=== PATIENT | female | born 1935 | race Caucasian/White ===

== ENCOUNTER 2021-05-07 11:00 | Outpatient (RCR) | payer MEDICARE, SELFPAY ==
[2021-04-30 10:20] VITALS: BP 130/72; PULSE 72; TEMP 35.9
--- NOTE | 2021-04-30 14:36 | HP.PCM_ITS ---
History of Present Illness Date of Service: 04/30/21 Chief Complaint: Right lateral calf ulcer, left forearm skin tear History of Wound: The patient is a pleasant 86-year-old female who presents to the wound healing center today (04/30/2021) for an initial evaluation of her right lateral calf ulcer, and a left forearm skin tear. She has a past medical history significant for right lower extremity lymphedema, hypothyroidism, hypertension, hyperlipidemia, aortic valve replacement, and ranulfo ral valve prolapse. She is a non-smoker. In the past week, she moved from [place] to [place] and is now residing with her daughter who is present with her today. Her right calf ulcer occurred around November 2020. During that time, she was hospitalized for a UTI and dehydration, and subsequently developed a right lower extremity hematoma. Her hematoma ruptured, resulting in a large ulceration. S he was taken to surgery for operative debridement of the right lateral calf. She then followed up at a wound care facility in [place]. She was treated for several months with Dakin's and daily Adaptic dressing changes. She was receiving home health care to assist with dressing changes. In recent weeks, her wound care regimen was changed to a weekly graft (type unknown). She uses a Tubigrip for compression of the right lower extremity. She has a lymphedema pump at home which she uses for 1 hour twice daily. She sleeps in a bed. She keeps her feet elevated when seated. She is unsure if she has ever had venous or arterial studies of the lower extremity completed. Recent lab work is unavailable. She is unsure if/when cultures were collected from the right lower extremity. Records from her wound care provider in [place] will be requested. She also has a small superficial skin tear to the left forearm. She states she was scratched by her daughter's cat yesterday. She was able to clean the area well with soap and water following the incident. She has covered the area with Band-Aids. The patient denies fever, chills, general malaise, or poor appetite. The patient has not had increased redness, swelling, or purulent/malodorous drainage from affected areas. [facility] Medical History (Updated 04/30/21 @ 14:54 by Doreen Lopez NP, PROCESS IMPROVEMENT ENGINEER-C) Edema of both lower extremities Essential hypertension Hyperlipidemia Hypothyroidism Lymphedema of right lower extremity MVP (mitral valve prolapse) Skin tear of left forearm without complication Venous stasis ulcer of right lower leg with edema of right lower leg Home Medications amiodarone 200 mg PO DAILY 04/30/21 [History Last Taken Unknown] aspirin 81 mg PO DAILY 04/30/21 [History Last Taken Unknown] atorvastatin 80 mg PO DAILY 04/30/21 [History Last Taken Unknown] bisoprolol fumarate 5 mg PO DAILY 04/30/21 [History Last Taken Unknown] bumetanide 1 mg PO DAILY 04/30/21 [History Last Taken Unknown] citalopram 10 mg PO DAILY 04/30/21 [History Last Taken Unknown] levothyroxine 50 mcg PO DAILY 04/30/21 [History Last Taken Unknown] lisinopril 20 mg PO DAILY 04/30/21 [History Last Taken Unknown] potassium chloride meq PO 04/30/21 [History Last Taken Unknown] Allergy/AdvReac Type Severity Reaction Status Date / Time erythromycin base Allergy Mild Diarrhea Verified 04/30/21 11:02 meloxicam Allergy Unknown Low Verified 04/30/21 10:59 platelets Surgical History (Updated 04/30/21 @ 14:54 by Doreen Lopez PROCESS IMPROVEMENT ENGINEER, PROCESS IMPROVEMENT ENGINEER-C) H/O aortic valve replacement ROS Constitutional Constitutional: Denies chills, fever(s) or night sweats Eyes Eyes: Denies change in vision or double vision ENT HEENT: Denies lip swelling or tongue swelling Cardiovascular Cardiovascular: Reports leg edema; Denies chest pain or palpitations Respiratory/Chest Respiratory/Chest: Reports shortness of breath with exertion; Denies cough, shortness of breath at rest or wheezing Gastrointestinal Gastrointestinal: Denies diarrhea, nausea or vomiting Genitourinary Genitourinary: Denies dysuria or hematuria Musculoskeletal Musculoskeletal: Denies abnormal gait, extremity pain or muscle weakness Integumentary Integumentary: Reports wounds; Denies rash Neurologic Neurologic: Denies abnormal gait, abnormal speech or focal weakness Endocrine Endocrinology: Denies cold intolerance, heat intolerance, polydipsia or polyuria Hematologic/Lymphatic Hematologic/Lymphatic: Denies easy bleeding or easy bruising Vital Signs Vital Signs Vital Signs: 04/30/21 10:20 Temperature 96.7 F L Temperature Source Temporal Pulse Rate 72 Blood Pressure 130/72 H Blood Pressure Mean 91 Blood Pressure Source Monitor Blood Pressure Position Semi-Fowlers Blood Pressure Location Left Arm Physical Exam Const alert, no apparent distress and healthy appearing General Appearance: cooperative, comfortable and well kempt HEENT moist oral mucous membranes Head and Scalp: normocephalic and atraumatic Eyes EOMs intact bilaterally Neck supple and no JVD Resp normal respiratory effort, normal air movement and no use of accessory muscles Auscultation: clear to auscultation bilaterally; Negative for crackles, rales, rhonchi or wheezes Cardio regular rate and regular rhythm GI normal to inspection, nondistended, normoactive bowel sounds Extremity normal capillary refill, no joint enlargement, no calf tenderness and no pedal edema General Extremity: edema right lower extremity severe (2+ pitting edema of the right lower extremity; 4+ pitting edema of right foot); Negative for clubbing or cyanosis Peripheral Pulses: Yes dorsalis pedis pulses present right 2+ Skin Wounds: wounds noted No malodorous Wound Narrative: Right lateral calf ulcer with subcutaneous layer exposed. Good granulation tissue is present. Moderate to large amounts of slough and devitalized tissue present. There is no tunneling, undermining, or probing to bone. No purulent/malodorous drainage present. No periulcer warmth, edema, or erythema. No significant periulcer tenderness. Left forearm skin tear with subcutaneous layer exposed. Good granulation tissue present. Scant amount of devitalized tissue present. There is no tunneling, undermining, or probing to bone. No purulent/malodorous drainage present. No rash. No periulcer warmth, edema, or erythema. No significant periulcer tenderness. Neuro moves all extremities and no focal motor deficits Sensorium / Orientation: awake and alert Psych mental status grossly normal, cooperative and affect normal Debridement Note Debridement Note Wound debrided: Right lateral calf ulcer Laterality: Right Type of Debridement: Excisional debridement Anesthesia Used: 4% Lidocaine Solution Depth: in the subcutaneous layer Percentage of wound debrided: 100 Instrument Used: 7mm curette Tissue Removed: Slough and devitalized tissue Severity: Fat Layer Exposed Amount of bleeding with debridement: Mild Bleeding Controlled with: Compression and gauze Patient tolerated procedure: Patient tolerated procedure well Post-Debridement Measurements and Additional Note: Post-Debridement Measurements/Treatment GLORIA - Nurse 1 - General Ulcer Assessment Start: 04/30/21 10:19 Freq: Status: Active Protocol: RAGHAV Activity Type Activity Date Activity User E-Sign Co-Sign Detail Recorded Client Recorded Date Recorded By Document 04/30/21 10:20 MT [id number] 04/30/21 10:34 MT 04/30/21 10:20 - Today's Visit Information Type of service Initial Visit Arrival Mode Ambulatory, Walker Patient Identification Verified (Name & Yes ) Vital Signs Temperature (97.8 F-99.1 F) 96.7 F L Temperature Source Temporal Pulse Rate (60-100) 72 Pulse Location Monitor Blood Pressure (90/60-120/80) 130/72 H Blood Pressure Mean 91 Source Monitor Position Semi-Fowlers Blood Pressure Location Left Arm History Since Last Visit- (Skip if this is Patient's initial visit) Have you changed medications since your No last visit? Any new allergies or adverse reactions No Had a fall/change in ADL's that may No increase risk of falls Signs or symptoms of abuse and/or No neglect since last visit Have you been in the hospital since your No last visit? Has dressing in place as prescribed No Has compression in place as prescribed Yes Has offloadiing in place as prescribed N/A Experienced any changes in pain level or No management Left Footwear Regular Shoe Right Footwear Regular Shoe Pain Scale: 0-10 Numeric Is Patient Pain Free? Yes - Nurse 1 - General Ulcer Measurement Start: 04/30/21 10:19 Freq: Status: Active Protocol: Activity Type Activity Date Activity User E-Sign Co-Sign Detail Recorded Client Recorded Date Recorded By Document 04/30/21 10:20 MT [id number] 04/30/21 10:34 MT 04/30/21 10:20 Wound Center Nurse 1 #1 Right Leg Lower Extremity -Current Size (cm) - Length 9 -Current Size (cm) - Width 2.2 -Current Size (cm) - Depth 1.1 -Total Square Cm 19.8 -Exudate Amt Medium -Exudate Type Serosanguineous -Wound Margin Distinct, Outline Attached -Granulation Amt Medium (34-66%) -Granulation Quality Red -Necrosis Amt Medium (34-66%) -Necrotic Tissue Type Adherent Slough -Texture (Marga-wound Skin Appearance) Assessed, Scarring -Moisture (Marga-wound Skin Appearance) Assessed, Maceration -Color (Marga-wound Skin Appearance) No Abnormality, Assessed -Temperature (Marga-wound Skin No Abnormality Appearance) (Pt Warm) -Tenderness on Palpation (Amrga-wound No Skin Appearance) -Ulcer Cleansing Rinsed/ Irrigated with Saline -Foul Odor after Cleansing No -Anesthetic Used 4% Lidocaine Solution,5% Lidocaine Gel Right Calf (cm) 35 Right Ankle (cm) 27 WC - Nurse 2 - General Ulcer CM Notes Start: 04/30/21 10:19 Freq: Status: Active Protocol: Activity Type Activity Date Activity User E-Sign Co-Sign Detail Recorded Client Recorded Date Recorded By Document 04/30/21 13:29 PL [id number] 04/30/21 13:31 PL 04/30/21 13:29 Wound Center Nurse 2 #2 Left forearm -Time 11:03 -Correct Patient Yes -Correct Side, Site, Position Yes -Correct Procedure Yes -Procedure Performed Yes -Type of Procedure Debridement -Clinical Debridement Subcutaneous -Tissue Removed Subcutaneous -Post Debridement (cm) - Length 1.0 -Post Debridement (cm) - Width 1.2 -Post Debridement (cm) - Depth 0.1 -Total Square (Post) (cm) 1.20 -Area of Debridement (cm) - Length 1.0 -Area of Debridement (cm) - Width 1.2 -Total Square (Area) (cm) 1.20 -Tunneling No -Undermining/Tunneling No -Circular Undermining No -Wound/Ulcer Outcome Not Healed -Ulcer Cleansing Rinsed/ Irrigated with Saline -Foul Odor after Cleansing No -Bioengineered Tissue No -Bleeding Controlled with Pressure -Treatment Response Procedure Tolerated Well -Debridement - Subq, 1st 20sq cm No #1 Right Leg Lower Extremity -Time 11:03 -Correct Patient Yes -Correct Side, Site, Position Yes -Correct Procedure Yes -Procedure Performed Yes -Type of Procedure Debridement -Clinical Debridement Subcutaneous -Tissue Removed Subcutaneous -Post Debridement (cm) - Length 9.1 -Post Debridement (cm) - Width 1.0 -Post Debridement (cm) - Depth 0.2 -Total Square (Post) (cm) 9.10 -Area of Debridement (cm) - Length 9.1 -Area of Debridement (cm) - Width 1.0 -Total Square (Area) (cm) 9.10 -Tunneling No -Undermining/Tunneling No -Circular Undermining No -Wound/Ulcer Outcome Not Healed -Ulcer Cleansing Rinsed/ Irrigated with Saline -Foul Odor after Cleansing No -Bioengineered Tissue No -Bleeding Controlled with Pressure -Treatment Response Procedure Tolerated Well -Debridement - Subq, 1st 20sq cm Yes WC - Nurse 3 - General Ulcer D/C NN Start: 04/30/21 10:19 Freq: Status: Active Protocol: Activity Type Activity Date Activity User E-Sign Co-Sign Detail Recorded Client Recorded Date Recorded By Document 04/30/21 11:53 MT [id number] 04/30/21 11:54 MT 04/30/21 11:53 Wound Care Nurse 3 #2 Left forearm -Ulcer Cleansing Rinsed/ Irrigated with Saline -Primary Dressing Applied NonAdherent Contact Layer -Primary Dressing Covered/Secured with Dry Gauze,Dry Gauze & Roll Gauze,Secured with Tape #1 Right Leg Lower Extremity -Ulcer Cleansing Rinsed/ Irrigated with Saline -Primary Dressing Applied Aquacel AG 4x4 -Primary Dressing Covered/Secured with Dry Gauze,Dry Gauze & Roll Gauze,Secured with Tape -Aquacel AG 4x4 1 Pain Scale: 0-10 Numeric Is Patient Pain Free? Yes WC - Visit Discharge Discharge Condition Stable Ambulatory Status Walker Transportation Private Auto Accompanied by daughter Additional Wound Wound debrided: Left forearm skin tear Laterality: Left Type of Debridement: Excisional debridement Anesthesia Used: Cetacaine Depth: in the subcutaneous layer Percentage of wound debrided: 100 Instrument Used: 3mm curette Tissue Removed: Devitalized tissue Severity: Fat Layer Exposed Amount of bleeding with debridement: Mild Bleeding Controlled with: Pressure Patient tolerated procedure: Patient tolerated procedure well Charges/Coding Visit Charges Office Visits / Consults: [id number] OV L4 New Procedures Integumentary [id number]: [id number] Raquel subq tissue 20 sq cm/< Assessment/Plan Assessment/Plan (1) Venous stasis ulcer of right lower leg with edema of right lower leg: CODE(S): I83.019 - Varicose veins of right lower extremity with ulcer of unspecified site; I83.891 - Varicose veins of right lower extremity with other complications; L97.919 - Non-pressure chronic ulcer of unspecified part of right lower leg with unspecified severity; R60.9 - Edema, unspecified (2) Skin tear of left forearm without complication: CODE(S): S51.812A - Laceration without foreign body of left forearm, initial encounter QUALIFIERS: Encounter type: initial encounter Qualified Code(s): S51.812A - Laceration without foreign body of left forearm, initial encounter (3) Lymphedema of right lower extremity: CODE(S): I89.0 - Lymphedema, not elsewhere classified (4) Edema of both lower extremities: CODE(S): R60.0 - Localized edema PLAN: Debridement performed today in clinic as annotated above. Aquacel Ag applied to the right lower extremity ulcer. Adaptic applied to the left forearm ulcer and wrapped in Kerlix, avoiding contact between tape and skin. Records will be obtained from the patient's previous wound care provider in [place]. We will determine what graft was previously used on the right lower extremity ulcer. The same graft may be resumed if insurance coverage is obtained. Otherwise, we may apply for alternative skin subs. At home wound-care instructions: The patient may shower. Instructed to use antibacterial soap and water to clean wounds when showering. For right lower extremity ulcer: Begin Aquacel Ag dressings. Change dressing once daily or more frequently as needed due to contamination. Wash RLE ulcer daily with Dakin's solution, rinse and dry thoroughly before each dressing change. For left forearm ulcer: Begin Adaptic dressing changes daily. Change dressing once daily or more frequently as needed due to contamination. Wash forearm ulcer daily with antibacterial soap and water. Cover with Kerlix and secure with tape, avoiding contact between skin and tape due to fragility of skin. Compression: Bilateral double Tubigrip's applied to the lower extremities. Patient was instructed to wear these daily. These may be removed at bedtime. Reapply in the morning before getting out of bed. Off-loading: The patient was instructed to avoid pressure and friction on the affected areas. Reposition every 2 hours at minimum. Avoid prolonged standing and/or dangling of legs. When seated, feet should be elevated at chest level. Frequent ambulation is encouraged. Diet: Patient encouraged to increase protein intake while taking caution to avoid high carbohydrate and/or sugar intake. Labs/cultures/imaging: Any previous culture results, blood work results, and vascular study results will be requested from the patient's previous wound care provider. If the studies have not been completed, they will be reconsidered at the patient's next appointment. Follow-up: Return to clinic in 1 week for re-evaluation. Return sooner or report to the emergency room should symptoms worsen, or new symptoms arise. Note: Dragon speech recognition technical support director software was used to create portions of this document. Sound-alike and misspelled words, as well as other technical support director errors may be contained in the documentation. Greater than 60 minutes were spent by me on today's visit. This time includes coordinating care, reviewing labs/records/history, interpretation of test results, and counseling patient/family. This also includes time spent with the patient for exam, treatment plan, and education as well as documenting clinical information in the electronic health record.
[2021-05-07 11:32] VITALS: TEMP 36.2
--- NOTE | 2021-05-07 12:44 | PCM.WC.PN ---
History of Present Illness Date of Service: 05/07/21 Chief Complaint: Right lateral calf ulcer, left forearm skin tear History of Wound: The patient is a pleasant 86-year-old female who presents to the wound healing center today (04/30/2021) for an initial evaluation of her right lateral calf ulcer, and a left forearm skin tear. She has a past medical history significant for right lower extremity lymphedema, hypothyroidism, hypertension, hyperlipidemia, aortic valve replacement, bilateral kidney stents (2017), and mitral valve prolapse. She is a non-smoker. In the past week, she moved from [place] to [place] and is now residing with her daughter who is present with her today. Her right calf ulcer occurred around November 2020. During that time, she was hospitalized for a UTI and dehydration, and subsequently developed a right lower extremity hematoma. Her hematoma ruptured, resulting in a large ulceration. She was taken to surgery for operative debridement of the right lateral calf. She then followed up at a wound care facility in [place]. She was treated for several months with Dakin's and daily Adaptic dressing changes. She was receiving home health care to assist with dressing changes. In recent weeks, her wound care regimen was changed to a weekly graft (Revita allograft). She uses a Tubigrip for compression of the right lower extremity. She has a lymphedema pump at home which she uses for 1 hour twice daily. She sleeps in a bed. She keeps her feet elevated when seated. She is ambulatory with a walker for support. She is unsure if she has ever had venous or arterial studies of the lower extremity completed. Recent lab work is unavailable. She is unsure if/when cultures were collected from the right lower extremity. Records from her wound care provider in [place] will be requested. She also has a small superficial skin tear to the left forearm. She states she was scratched by her daughter's cat yesterday. She was able to clean the area well with soap and water following the incident. She has covered the area with Band-Aids. The patient denies fever, chills, general malaise, or poor appetite. The patient has not had increased redness, swelling, or purulent/malodorous drainage from affected areas. Progress of Wound: The patient's lateral RLE ulcer is improved in size and appearance. Left forearm ulcer is also improved in size and appearance. She has been using Aquacel Ag to these ulcers and tolerating this well. She has been using Ramu wraps to knee level for compression. She states she has been keeping her feet elevated most of the time when seated. In the past week, she has acquired 2 new wounds. She slid off of the toilet and hit her left knee on the bathtub, causing a large skin tear. She also had opening of a previously suspected hematoma on her medial LLE. The patient denies fever, chills, general malaise, or poor appetite. The patient has not had increased redness, swelling, or malodorous drainage from affected area. A small amount of purulent drainage is noted from the right forearm ulcer. I called and spoke to a nurse at her previous PCP's office and was told that per her labs from February 2021 her creatinine was 1.11 and her eGFR was 45. She is faxing these results to our facility. Objective Data Objective Data Vital Signs: Vital Signs Temp Pulse BP 97.2 F L 72 130/72 H 05/07/21 11:32 04/30/21 10:20 04/30/21 10:20 Charges/Coding Procedures Integumentary 111xxx-113xx: [id number] Raquel subq tissue 20 sq cm/< 150xxx-152xx: [id number] Skin sub graft trnk/arm/leg Physical Exam Const alert, no apparent distress and healthy appearing General Appearance: cooperative, comfortable and well kempt HEENT Head and Scalp: normocephalic and atraumatic Eyes EOMs intact bilaterally Neck supple Resp normal respiratory effort, normal air movement and no use of accessory muscles Extremity normal capillary refill, no joint enlargement and no calf tenderness General Extremity: edema right lower extremity severe (2+ pitting edema of the right lower extremity; 4+ pitting edema of right foot and right knee above compression); Negative for clubbing or cyanosis Peripheral Pulses: Yes dorsalis pedis pulses present bilateral Skin Wounds: wounds noted No malodorous Wound Narrative: Right lateral calf ulcer with subcutaneous layer exposed. Good granulation tissue is present. Moderate to large amounts of slough and devitalized tissue present. There is no tunneling, undermining, or probing to bone. No purulent/malodorous drainage present. No periulcer warmth, edema, or erythema. No significant periulcer tenderness. Left forearm skin tear with subcutaneous layer exposed. Good granulation tissue present. Scant amount of devitalized tissue present. There is no tunneling, undermining, or probing to bone. Small amount of purulent drainage present. No rash. No periulcer warmth, edema, or erythema. No significant periulcer tenderness. Left knee skin tear with subcutaneous layer exposed. Good granulation tissue present. Moderate amount of slough and devitalized tissue present. There is no tunneling, undermining, or probing to bone. No purulent/malodorous drainage present. No periulcer warmth, edema, or erythema. Tenderness with palpation, debridement, and movement of the left knee. Left medial lower leg ulcer with subcutaneous layer exposed. Good granulation tissue present. Scant amount of devitalized tissue present. There is no tunneling, undermining, or probing to bone. Small amount of purulent drainage present. No rash. No periulcer warmth, edema, or erythema. No significant periulcer tenderness. Neuro moves all extremities and no focal motor deficits Sensorium / Orientation: awake and alert Psych mental status grossly normal, cooperative and affect normal Debridement Note Debridement Note Wound debrided: Lateral right lower extremity ulcer Laterality: Right Type of Debridement: Excisional debridement Anesthesia Used: 4% Lidocaine Solution Depth: in the subcutaneous layer Percentage of wound debrided: 100 Instrument Used: 3mm curette Tissue Removed: Slough and devitalized tissue Severity: Fat Layer Exposed Amount of bleeding with debridement: Mild Bleeding Controlled with: Pressure Patient tolerated procedure: Patient tolerated procedure well Post-Debridement Measurements and Additional Note: Post-Debridement Measurements/Treatment - Nurse 1 - General Ulcer Assessment Start: 04/30/21 10:19 Freq: Status: Active Protocol: RAGHAV Activity Type Activity Date Activity User E-Sign Co-Sign Detail Recorded Client Recorded Date Recorded By Document 04/30/21 10:20 KR [id number] 04/30/21 10:34 KR Document 05/07/21 11:32 AK [id number] 05/07/21 11:37 MARLEY 04/30/21 05/07/21 10:20 11:32 - Today's Visit Information Type of service Initial Visit Follow-up Visit (Physician/PERMASTONE MECHANIC ) Arrival Mode Ambulatory, Ambulatory Walker Patient Identification Verified (Name & Yes Yes ) Patient Requires Transmission-Based No Precautions Safety Precautions NA Vital Signs Temperature (97.8 F-99.1 F) 96.7 F L 97.2 F L Temperature Source Temporal Temporal Pulse Rate (60-100) 72 Pulse Location Monitor Blood Pressure (90/60-120/80) 130/72 H Blood Pressure Mean (mm Hg) 91 Source Monitor Position Semi-Fowlers Blood Pressure Location Left Arm History Since Last Visit- (Skip if this is Patient's initial visit) Have you changed medications since your No No last visit? Any new allergies or adverse reactions No No Had a fall/change in ADL's that may No No increase risk of falls Signs or symptoms of abuse and/or No No neglect since last visit Have you been in the hospital since your No No last visit? Has dressing in place as prescribed No Yes Has compression in place as prescribed Yes Yes Has offloadiing in place as prescribed N/A N/A Experienced any changes in pain level or No No management Left Footwear Regular Shoe Regular Shoe Right Footwear Regular Shoe Regular Shoe Pain Scale: 0-10 Numeric Is Patient Pain Free? Yes WC - Nurse 1 - General Ulcer Measurement Start: 04/30/21 10:19 Freq: Status: Active Protocol: Activity Type Activity Date Activity User E-Sign Co-Sign Detail Recorded Client Recorded Date Recorded By Document 04/30/21 10:20 KR [id number] 04/30/21 10:34 KR Document 05/07/21 11:32 AK [id number] 05/07/21 11:37 AK 04/30/21 05/07/21 10:20 11:32 Wound Center Nurse 1 #3 LEFT KNEE -Combined with other wound No -Current Size (cm) - Length 5 -Current Size (cm) - Width 2.5 -Current Size (cm) - Depth 0.1 -Total Square Cm 12.5 -Photo Taken No -Tunneling No -Undermining/Tunneling No -Circular Undermining No -Change in Wound Grade/Stage No -Exudate Amt Medium -Exudate Type Serosanguineous -Wound Margin Distinct, Outline Attached -Granulation Amt None Present (0 %) -Granulation Quality N/A -Slough/Fibrin No -Necrosis Amt None Present (0 %) -Structure Exposed N/A -Texture (Marga-wound Skin Appearance) No Abnormality, Assessed -Moisture (Marga-wound Skin Appearance) No Abnormality, Assessed -Color (Marga-wound Skin Appearance) No Abnormality, Assessed -Temperature (Marga-wound Skin No Abnormality Appearance) (Pt Warm) -Tenderness on Palpation (Marga-wound Yes Skin Appearance) -Ulcer Cleansing Rinsed/ Irrigated with Saline -Foul Odor after Cleansing No -Anesthetic Used 5% Lidocaine Gel #2 Left forearm -Current Size (cm) - Length 0.4 -Current Size (cm) - Width 0.5 -Current Size (cm) - Depth 0.1 -Total Square Cm 0.20 -Photo Taken No -Tunneling No -Undermining/Tunneling No -Circular Undermining No -Change in Wound Grade/Stage No -Exudate Amt None Present -Wound Margin Distinct, Outline Attached -Granulation Quality N/A -Slough/Fibrin No -Necrosis Amt None Present (0 %) -Structure Exposed N/A -Texture (Marga-wound Skin Appearance) No Abnormality, Assessed -Moisture (Marga-wound Skin Appearance) No Abnormality, Assessed -Color (Marga-wound Skin Appearance) No Abnormality, Assessed -Temperature (Marga-wound Skin No Abnormality Appearance) (Pt Warm) -Tenderness on Palpation (Marga-wound No Skin Appearance) -Ulcer Cleansing Rinsed/ Irrigated with Saline -Foul Odor after Cleansing No -Anesthetic Used 5% Lidocaine Gel #1 Right Leg Lower Extremity -Combined with other wound No -Current Size (cm) - Length 9 5 -Current Size (cm) - Width 2.2 0.5 -Current Size (cm) - Depth 1.1 0.1 -Total Square Cm 19.8 2.5 -Photo Taken No -Tunneling No -Undermining/Tunneling No -Circular Undermining No -Change in Wound Grade/Stage No -Exudate Amt Medium None Present -Exudate Type Serosanguineous -Wound Margin Distinct, Outline Attached -Granulation Amt Medium (34-66%) None Present (0 %) -Granulation Quality Red -Slough/Fibrin No -Necrosis Amt Medium (34-66%) None Present (0 %) -Necrotic Tissue Type Adherent Slough -Structure Exposed N/A -Texture (Marga-wound Skin Appearance) Assessed, No Abnormality, Scarring Assessed -Moisture (Marga-wound Skin Appearance) Assessed, No Abnormality, Maceration Assessed -Color (Marga-wound Skin Appearance) No Abnormality, No Abnormality, Assessed Assessed -Temperature (Marga-wound Skin No Abnormality No Abnormality Appearance) (Pt Warm) (Pt Warm) -Tenderness on Palpation (Marga-wound No Yes Skin Appearance) -Ulcer Cleansing Rinsed/ Rinsed/ Irrigated with Irrigated with Saline Saline -Foul Odor after Cleansing No -Anesthetic Used 4% Lidocaine 5% Lidocaine Solution,5% Gel Lidocaine Gel Right Calf (cm) 35 38 Right Ankle (cm) 27 25 WC - Nurse 2 - General Ulcer CM Notes Start: 04/30/21 10:19 Freq: Status: Active Protocol: Activity Type Activity Date Activity User E-Sign Co-Sign Detail Recorded Client Recorded Date Recorded By Document 04/30/21 13:29 PL [id number] 04/30/21 13:31 PL 04/30/21 13:29 Wound Center Nurse 2 #2 Left forearm -Time 11:03 -Correct Patient Yes -Correct Side, Site, Position Yes -Correct Procedure Yes -Procedure Performed Yes -Type of Procedure Debridement -Clinical Debridement Subcutaneous -Tissue Removed Subcutaneous -Post Debridement (cm) - Length 1.0 -Post Debridement (cm) - Width 1.2 -Post Debridement (cm) - Depth 0.1 -Total Square (Post) (cm) 1.20 -Area of Debridement (cm) - Length 1.0 -Area of Debridement (cm) - Width 1.2 -Total Square (Area) (cm) 1.20 -Tunneling No -Undermining/Tunneling No -Circular Undermining No -Wound/Ulcer Outcome Not Healed -Ulcer Cleansing Rinsed/ Irrigated with Saline -Foul Odor after Cleansing No -Bioengineered Tissue No -Bleeding Controlled with Pressure -Treatment Response Procedure Tolerated Well -Debridement - Subq, 1st 20sq cm No #1 Right Leg Lower Extremity -Time 11:03 -Correct Patient Yes -Correct Side, Site, Position Yes -Correct Procedure Yes -Procedure Performed Yes -Type of Procedure Debridement -Clinical Debridement Subcutaneous -Tissue Removed Subcutaneous -Post Debridement (cm) - Length 9.1 -Post Debridement (cm) - Width 1.0 -Post Debridement (cm) - Depth 0.2 -Total Square (Post) (cm) 9.10 -Area of Debridement (cm) - Length 9.1 -Area of Debridement (cm) - Width 1.0 -Total Square (Area) (cm) 9.10 -Tunneling No -Undermining/Tunneling No -Circular Undermining No -Wound/Ulcer Outcome Not Healed -Ulcer Cleansing Rinsed/ Irrigated with Saline -Foul Odor after Cleansing No -Bioengineered Tissue No -Bleeding Controlled with Pressure -Treatment Response Procedure Tolerated Well -Debridement - Subq, 1st 20sq cm Yes - Nurse 3 - General Ulcer D/C NN Start: 04/30/21 10:19 Freq: Status: Active Protocol: Activity Type Activity Date Activity User E-Sign Co-Sign Detail Recorded Client Recorded Date Recorded By Document 04/30/21 11:53 MT [id number] 04/30/21 11:54 MT 04/30/21 11:53 Wound Care Nurse 3 #2 Left forearm -Ulcer Cleansing Rinsed/ Irrigated with Saline -Primary Dressing Applied NonAdherent Contact Layer -Primary Dressing Covered/Secured with Dry Gauze,Dry Gauze & Roll Gauze,Secured with Tape #1 Right Leg Lower Extremity -Ulcer Cleansing Rinsed/ Irrigated with Saline -Primary Dressing Applied Aquacel AG 4x4 -Primary Dressing Covered/Secured with Dry Gauze,Dry Gauze & Roll Gauze,Secured with Tape -Aquacel AG 4x4 1 Pain Scale: 0-10 Numeric Is Patient Pain Free? Yes WC - Visit Discharge Discharge Condition Stable Ambulatory Status Walker Transportation Private Auto Accompanied by daughter Additional Wound Wound debrided: Left forearm ulcer Laterality: Left Type of Debridement: Excisional debridement Anesthesia Used: 5% Lidocaine Gel Depth: in the subcutaneous layer Percentage of wound debrided: 100 Instrument Used: 3mm curette Tissue Removed: Slough and devitalized tissue Severity: Fat Layer Exposed Amount of bleeding with debridement: Mild Bleeding Controlled with: Pressure Patient tolerated procedure: Patient tolerated procedure well Additional Wound Wound debrided: Left knee ulcer Laterality: Left Type of Debridement: Excisional debridement Depth: in the subcutaneous layer Percentage of wound debrided: 100 Instrument Used: 5mm curette, #15 blade and Forceps Tissue Removed: Slough and devitalized tissue Severity: Fat Layer Exposed Amount of bleeding with debridement: Mild Bleeding Controlled with: Pressure Patient tolerated procedure: Patient did not tolerate procedure well Additional Wound Wound debrided: Medial left lower extremity ulcer Laterality: Left Type of Debridement: Excisional debridement Anesthesia Used: Cetacaine Depth: in the subcutaneous layer Percentage of wound debrided: 100 Instrument Used: 3mm curette Tissue Removed: Slough and devitalized tissue Severity: Fat Layer Exposed Amount of bleeding with debridement: Mild Bleeding Controlled with: Pressure Patient tolerated procedure: Patient tolerated procedure well Assessment/Plan Assessment/Plan (1) Venous stasis ulcer of right lower leg with edema of right lower leg: CODE(S): I83.019 - Varicose veins of right lower extremity with ulcer of unspecified site; I83.891 - Varicose veins of right lower extremity with other complications; L97.919 - Non-pressure chronic ulcer of unspecified part of right lower leg with unspecified severity; R60.9 - Edema, unspecified (2) Skin tear of left forearm without complication: CODE(S): S51.812A - Laceration without foreign body of left forearm, initial encounter QUALIFIERS: Encounter type: initial encounter Qualified Code(s): S51.812A - Laceration without foreign body of left forearm, initial encounter (3) Lymphedema of right lower extremity: CODE(S): I89.0 - Lymphedema, not elsewhere classified (4) Edema of both lower extremities: CODE(S): R60.0 - Localized edema (5) Noninfected skin tear of left lower extremity: CODE(S): S81.812A - Laceration without foreign body, left lower leg, initial encounter QUALIFIERS: Encounter type: initial encounter Qualified Code(s): S81.812A - Laceration without foreign body, left lower leg, initial encounter (6) 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 Given the duration of the wound and failure of the wound to respond to standard wound care, we will applied for advanced skin substitutes (Puraply, Nushield, Apligraf, and EpiFix). The patient has been approved for PuraPly and Nushield. Epifix approval is still pending. Records obtained from the patient's previous wound care provider in [place]. She was previously using revita allograft (a placental graft). Puraply #1 was applied to the right lower extremity ulcer; 100% of the product was used. Moistened with hydrogel, covered with Adaptic touch, and secured with Steri-Strips. Kerlix applied for outer dressing. Thigh-high Tubigrip applied to the right lower extremity. Instructions were given to change Kerlix daily or as needed due to contamination. Puraply, Adaptic touch, and Steri-Strips are to be kept clean and dry, and left intact until patient's next visit at the wound healing center. Slightly moistened Karen was applied to the remainder of the patient's wounds (left forearm ulcer, left knee ulcer, and medial left lower extremity ulcer). The left lower extremity and left forearm were wrapped with Kerlix. Thigh-high Tubigrip applied to the left lower extremity. Perform Karen dressing changes daily or more frequently as needed due to contamination. Wash these ulcers daily with antibacterial soap and water. Cover with Kerlix and secure with tape, avoiding contact between skin and tape due to fragility of skin. At home wound-care instructions: Perform sponge bathing for the next week in efforts to keep right lower extremity dressing clean and dry. Patient is high risk for falls and I do not recommend that she attempt to use a cast cover while showering. Compression: Bilateral double Tubigrip's applied to the lower extremities. Patient was instructed to wear these daily. These may be removed at bedtime. Reapply in the morning before getting out of bed. Off-loading: The patient was instructed to avoid pressure and friction on the affected areas. Reposition every 2 hours at minimum. Avoid prolonged standing and/or dangling of legs. When seated, feet should be elevated at chest level. Frequent ambulation is encouraged. Diet: Patient encouraged to increase protein intake while taking caution to avoid high carbohydrate and/or sugar intake. Labs/cultures/imaging: Culture collected from the patient's left forearm ulcer today due to the presence of purulent drainage. Patient will be empirically started on Augmentin 875/125 mg twice daily x7 days. Antibiotics will be adjusted as needed based on culture results. Patient's primary care office from [place] is faxing over lab results from February 2021. A CBC, CMP, ESR, CRP, and prealbumin were ordered. Per their report, no vascular studies have been completed. These will remain a future consideration in managing the patient's conditions. Follow-up: Return to clinic in 1 week for re-evaluation. Return sooner or report to the emergency room should symptoms worsen, or new symptoms arise. Note: [employer] speech recognition delivery supervisor software was used to create portions of this document. Sound-alike and misspelled words, as well as other delivery supervisor errors may be contained in the documentation. Greater than 60 minutes were spent by me on today's visit. This time includes coordinating care, reviewing labs/records/history, interpretation of test results, and counseling patient/family. This also includes time spent with the patient for exam, treatment plan, and education as well as documenting clinical information in the electronic health record.
== END 2021-05-20 23:59 ==
LOC: WC 11:00
PROVIDERS: PCP Internal Medicine; Visit Provider Nurse Practitioner Family
DX: I83.012 Varicose veins of right lower extremity with ulcer of calf (principal); I83.891 Varicose veins of right lower extremity with other complications; L97.212 Non-pressure chronic ulcer of right calf with fat layer exposed; S51.812A Laceration without foreign body of left forearm, initial encounter; S81.012A Laceration without foreign body, left knee, initial encounter; X58.XXXA Exposure to other specified factors, initial encounter; Y93.9 Activity, unspecified; Y92.9 Unspecified place or not applicable; Y99.9 Unspecified external cause status; I89.0 Lymphedema, not elsewhere classified; R60.0 Localized edema; I10 Essential (primary) hypertension; E78.5 Hyperlipidemia, unspecified; E03.9 Hypothyroidism, unspecified; Z79.82 Long term (current) use of aspirin; Z79.890 Hormone replacement therapy; Z79.899 Other long term (current) drug therapy; Z95.2 Presence of prosthetic heart valve
CPT/HCPCS: 11042; 15271; 87070; 87075; 87205; 99213; Q4196; G0463

== ENCOUNTER → 2021-05-08 11:34 | Outpatient (CLI) | payer MEDICARE, SELFPAY ==
[2021-05-08 12:07] LABS: Absolute Lymphocyte Count 0.92 X10^3/uL (0.83-4.51); Basophil# 0.06 X10^3/uL; Basophil% 0.7 % (0-1); Eosinophil# 0.15 X10^3/uL; Eosinophils% 1.7 % (0-5); Hematocrit 35.8 % (37-47); Hemoglobin 11.1 g/dL (12.0-15.0); Lymphocyte # 0.92 X10^3/ul (0.83-4.51); Lymphocyte % 10.2 % (19-41); Mean Corpuscular Hgb 27.4 pg (27.0-32.0); Mean Corpuscular Volume 88.4 fL (81-99); Monocyte# 0.86 X10^3/uL; Monocyte% 9.5 % (0-10); NRBC Flagged by Analyzer 0 % (0-5); Neutrophil # 6.95 X10^3/uL (2.7-7.7); Neutrophil % 76.7 % (47-70); Platelet Count 268 K/mm3 (150-450); RBC Distribution Width CV 18.6 % (11.6-14.6); RBC Distribution Width SD 59.9 fl (35.1-43.9); Red Blood Count 4.05 M/mm3 (4.2-5.4); White Blood Count 9.1 K/mm3 (4.4-11.0)
[2021-05-08 12:42] LABS: Erythrocyte Sedimentation Rate 10 mm/hr (0-30)
[2021-05-08 13:02] LABS: ALB/GLOB Ratio 0.9 RATIO (0.9-2.4); AST(SGOT) 26 U/L (15-37); Alanine Aminotransfer ALT/SGPT 34 U/L (13-56); Albumin, Serum 3.1 g/dL (3.2-5.0); Alkaline Phosphatase 76 U/L (45-117); Anion Gap 4 (5-15); BUN 27 mg/dL (7-18); BUN/Creat Ratio 25.5 RATIO (10-20); CRP 5.94 mg/L (0.0-3.0); Calcium,Total 8.8 mg/dL (8.5-10.1); Chloride 108 mmol/L (98-107); Creatinine, Serum 1.06 mg/dL (0.55-1.02); EST Glomerular Filtration Rate 52 mL/min (>60); Est Glom Filt Rate - Afr Amer 63 mL/min (>60); Globulin 3.3 g/dL (2.2-4.2); Glucose 78 mg/dL (74-106); Potassium 4.5 mmol/L (3.5-5.1); Prealbumin 14.7 mg/dL (20.0-40.0); Protein, Total 6.4 g/dL (6.4-8.2); Sodium Level 141 mmol/L (136-145)
== END ==
PROVIDERS: PCP Internal Medicine; Referring Provider Nurse Practitioner Family; Visit Provider Nurse Practitioner Family
DX: E03.9 Hypothyroidism, unspecified (principal); T14.8XXA Other injury of unspecified body region, initial encounter
CPT/HCPCS: 36415; 80053; 84134; 84443; 85025; 85652; 86140

== ENCOUNTER 2021-05-11 15:17 | Inpatient (IN) | payer MEDICARE, SELFPAY ==
[2021-05-11] VITALS (8 sets, daily range): BP systolic 141–204; BP diastolic 64–81; PULSE 63–82; RESP 16–20; TEMP 36.5–36.8; O2SAT 93–100; BMI 23.3; BMI 19.9
--- NOTE | 2021-05-11 15:55 | CT_ITS ---
EXAM: CT HEAD WITHOUT INTRAVENOUS CONTRAST : 1935 CLINICAL INDICATION: head injury TECHNIQUE: Multiple axial images were obtained of the head without intravenous contrast. This CT exam was performed using one or more of the following dose reduction techniques: automated exposure control, adjustment of the mA and/or kV according to patient size, and/or use of iterative reconstruction technique. This report was created using [employer] report generation technology. COMPARISON: None. FINDINGS: BRAIN AND EXTRA-AXIAL SPACES: There is enlargement of the ventricular system and cortical sulci. There is hypoattenuation in the periventricular white matter. No intra- or extra-axial hemorrhage. No evidence of acute infarct. No intracranial mass or mass effect. There is preservation of the lindsey/white matter interface. Posterior fossa structures are unremarkable. Basal cisterns are patent. BONES/JOINTS: Unremarkable. No discrete lytic or blastic abnormalities. SINUSES: Unremarkable as visualized. Clear. MASTOID AIR CELLS: Unremarkable. Clear. ORBITS: Visualized globes, extraocular muscles, optic nerves and retrobulbar fat appear unremarkable. CT/Brain/Head without Contrast IMPRESSION: 1. No acute intracranial abnormality. 2. Underlying senescent change with small vessel ischemia. Individualized dose optimization techniques were used for this CT. at 1839 Reported and signed by: Joshua Reynoso MD Electronically Signed: Joshua Reynoso MD at 18:38 EDT Tel , Service support ,
--- NOTE | 2021-05-11 15:55 | EKG12_ITS ---
Test Reason : ILLNESS Blood Pressure : / mmHG Vent. Rate : 061 BPM Atrial Rate : 061 BPM P-R Int : 198 ms QRS Dur : 112 ms QT Int : 452 ms P-R-T Axes : 066 028 110 degrees QTc Int : 455 ms Sinus rhythm with occasional Premature ventricular complexes Left ventricular hypertrophy with repolarization abnormality Abnormal ECG Confirmed by ANTONI ARMSTRONG, HENRY ([id number]), editor at large CHELLE LAWLER ([id number]) on 05/19/2021 1:06:47 PM Referred By: DENYS Confirmed By:HENRY CORRALES MD
--- NOTE | 2021-05-11 15:58 | ED.VIS.FALL ---
HPI HPI - Fall History of Present Illness Chief Complaint: Fall Narrative Narrative: 86-year-old female with history of generalized weakness she normally ambulates with a walker presenting with increasing weakness. Apparently she has been more confused than usual and not her baseline. Patient was left at home this morning at around 7 AM and her daughter called her at 10 she was answering the phone although she was moaning in pain. Her daughter came over to get her up and she was able to get up off of the floor where she had fallen and ambulate with her walker although she seemed to have some back pain. She was given two tramadol. Patient was then left again and upon arrival back home after a couple of hours she was found again on the floor moaning. Her daughter was unable to get her off of the floor due to pain in her lower back. Patient does have history of urinary tract infections in the past. She also has history of multiple falls. Patient does not have any hip pain. She is unable to answer whether she hit her head or not. Patient's daughter does note that she has not been eating and drinking well for the past couple of days. They have been trying to encourage her to do so without success. 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 Home Medications amiodarone 200 mg PO DAILY 04/30/21 [History Last Taken 05/11/21] atorvastatin 80 mg PO DAILY 04/30/21 [History Last Taken 05/10/21] bisoprolol fumarate 2.5 mg PO DAILY 04/30/21 [History Last Taken 05/10/21] bumetanide 1 mg PO DAILY 04/30/21 [History Last Taken 05/11/21] citalopram 10 mg PO DAILY 04/30/21 [History Last Taken 05/11/21] levothyroxine 50 mcg PO DAILY 04/30/21 [History Last Taken 05/11/21] lisinopril 20 mg PO DAILY 04/30/21 [History Last Taken 05/11/21] amoxicillin-pot clavulanate [Augmentin] 1 tab PO Q12H 7 Days #14 tab 05/07/21 [Rx Last Taken Unknown] aspirin [Aspirin Low-Strength] 81 mg PO DAILY 05/11/21 [History Last Taken 05/11/21] lisinopril 10 mg PO QHS 05/11/21 [History Last Taken 05/10/21] potassium chloride 20 meq PO DAILY 05/11/21 [History Last Taken 05/11/21] tramadol 200 mg PO TID PRN 05/11/21 [History Last Taken 05/11/21 11:00] Allergy/AdvReac Type Severity Reaction Status Date / Time erythromycin base Allergy Mild Diarrhea Verified 05/11/21 15:20 meloxicam Allergy Unknown Low Verified 05/11/21 15:20 platelets Surgical History H/O aortic valve replacement History of kyphoplasty History of renal stent S/P TAVR (transcatheter aortic valve replacement) Social History Smoking Status: Never smoker ROS ROS ED Constitutional Constitutional ED: Denies chills or fever(s) Eyes Eyes: Denies blurry vision or diplopia ENT ENT ED: Denies rhinorrhea or sore throat Cardiovascular Cardiovascular: Denies chest pain or palpitations Respiratory/Chest Respiratory/Chest: Denies cough or dyspnea Gastrointestinal Gastrointestinal: Denies constipation, diarrhea, nausea or vomiting Genitourinary Genitourinary ED: Denies dysuria or hematuria Musculoskeletal Musculoskeletal: Reports back pain and other Details: Left flank pain. ; Denies neck pain Neurologic Neurologic: Reports headache(s); Denies paresthesias EXAM Physical Exam Const Vital Signs: 05/11/21 15:20 05/11/21 15:42 05/11/21 15:46 Temperature 97.7 F L 97.7 F L Temperature Source Oral Oral Pulse Rate 64 64 Respiratory Rate 16 16 Respiratory Effort Respiratory Depth Respiratory Pattern Blood Pressure 204/81 H 204/81 H Blood Pressure Mean 122 122 Pulse Ox 95 95 Oxygen Delivery Method Room Air Room Air 05/11/21 15:48 05/11/21 18:44 05/11/21 20:08 Temperature 97.8 F 97.7 F L Temperature Source Oral Temporal Pulse Rate 82 63 Respiratory Rate 16 20 H Respiratory Effort Normal Non-Labored Respiratory Depth Normal Respiratory Pattern Normal Blood Pressure 184/64 H 175/65 H Blood Pressure Mean 104 101 Pulse Ox 93 93 Oxygen Delivery Method Room Air Room Air Positive well nourished General Appearance ED: NAD HEENT Reports normocephalic atraumatic Eyes PERRL and EOMs intact bilaterally Resp normal respiratory effort and clear to auscultation bilaterally Cardio regular rate and regular rhythm Back/Spine Back/Spine Narrative: No reproducible thoracic or lumbar spinal tenderness or deformity. Pain elicited in left flank while sitting forward for examination. No joy CVA tenderness. No bruising or ecchymosis. Extremity normal to inspection and full ROM Extremity Narrative: Negative logroll left hip. Neuro oriented x3 and CN's II-XII intact bilaterally Sensorium / Orientation: alert Psych Psych Narrative: Slightly confused and slow to answer questioning. Skin Skin Narrative: Patient has a wound on the left leg which appears to be erythematous and weeping. The left leg is warm and this is slightly reddened. The wound on her left forearm is punctate and does not appear to be infected. The dressing is clean dry and intact. MDM MDM MDM Narrative Medical decision making narrative: Patient presenting with falls x2 today concern for generalized weakness. Since the falls are unwitnessed and the patient is weak and complaining of back pain I did obtain a full work-up. EKG on my interpretation shows a sinus rhythm with occasional PVCs at a rate of 61 bpm. Chest x-ray on my interpretation shows possible infiltrate in the left lower lobe the radiologist does agree. CT brain is negative for acute intracranial process. CT of the abdomen pelvis was negative for acute findings and this was performed due to the patient's left flank pain. She does not have bony tenderness of the lumbar or thoracic spine. The CT does identify what appears to be pleural effusions versus developing pneumonia. Since the patient has a leukocytosis of 15.1 patient will be treated with Rocephin and azithromycin. Hemoglobin hematocrit are stable. Urinalysis is negative for infection. Creatinine 1.06 and electrolytes are normal. CK is 60. Patient does have a wound on the left leg which is concerning for possible cellulitis. Patient's daughter states that she is on amoxicillin currently for a cat scratch that she obtained on the left forearm. This does not appear to be grossly infected. Azithromycin will cover for this. Patient's erythromycin allergy is diarrhea so I believe it safe to give this. Covid testing is negative. Patient discussed with hospitalist for admission. Impression: #1. Community acquired pneumonia #2. Left lower extremity cellulitis #3. Generalized weakness and falls #4. Back pain Lab Data Attestation: I reviewed the patient's lab results. Labs: Laboratory Results - last 24 hr 05/11/21 05/11/21 05/11/21 16:15 16:48 16:48 WBC 15.1 H RBC 4.46 Hgb 12.0 Hct 39.0 MCV 87.4 MCH 26.9 L MCHC 30.8 L RDW Std Deviation 57.7 H RDW Coeff of Vick 18.3 H Plt Count 231 MPV 9.5 Immature Gran % (Auto) 0.900 Neut % (Auto) 85.9 H Lymph % (Auto) 3.8 L Cowley % (Auto) 8.9 Eos % (Auto) 0.2 Baso % (Auto) 0.3 Absolute Neuts (auto) 13.0 H Absolute Lymphs (auto) 0.58 L Nucleated RBC % 0 Differential Comment SCANNED Sodium Potassium Chloride Carbon Dioxide Anion Gap BUN Creatinine Estim Creat Clear Calc Est GFR (MDRD) Af Amer Est GFR (MDRD) Non-Af BUN/Creatinine Ratio Glucose Calcium Total Creatine Kinase Troponin I High Sens 23 Urine Color Straw Urine Clarity Clear Urine pH 5.0 Ur Specific [place] 1.010 Urine Protein Negative Urine Glucose (UA) Normal Urine Ketones Negative Urine Occult Blood 25 H Urine Nitrite Negative Urine Bilirubin Negative Urine Urobilinogen Normal Ur Leukocyte Esterase Negative Urine RBC 0-5 SEEN Urine WBC 0 SEEN Ur Squamous Epith Cells 0 SEEN Urine Bacteria RARE Urine Mucus 0 SEEN 05/11/21 05/11/21 16:48 16:48 WBC RBC Hgb Hct MCV MCH MCHC RDW Std Deviation RDW Coeff of Vick Plt Count MPV Immature Gran % (Auto) Neut % (Auto) Lymph % (Auto) Cowley % (Auto) Eos % (Auto) Baso % (Auto) Absolute Neuts (auto) Absolute Lymphs (auto) Nucleated RBC % Differential Comment Sodium 136 Potassium 4.4 Chloride 101 Carbon Dioxide 28.0 Anion Gap 7 BUN 24 H Creatinine 1.06 H Estim Creat Clear Calc 27.36 Est GFR (MDRD) Af Amer 63 Est GFR (MDRD) Non-Af 52 L BUN/Creatinine Ratio 22.6 H Glucose 102 Calcium 9.2 Total Creatine Kinase 60 Troponin I High Sens Urine Color Urine Clarity Urine pH Ur Specific [place] Urine Protein Urine Glucose (UA) Urine Ketones Urine Occult Blood Urine Nitrite Urine Bilirubin Urine Urobilinogen Ur Leukocyte Esterase Urine RBC Urine WBC Ur Squamous Epith Cells Urine Bacteria Urine Mucus Radiography Diagnostic Testing: Radiology Impression Brain CT 05/11/21 15:55 IMPRESSION: 1. No acute intracranial abnormality. 2. Underlying senescent change with small vessel ischemia. Individualized dose optimization techniques were used for this CT. at 1839 Reported and signed by: Joshua Reynoso MD Electronically Signed: Joshua Reynoso MD at 18:38 EDT Tel , Service support , Chest X-Ray 05/11/21 16:20 IMPRESSION: Streaky opacities in the left lung base could represent infection in the correct clinical setting. Electronically Signed: Ralph Silveira MD at 16:39 EDT Tel , Service support , Abdomen/Pelvis CT 05/11/21 17:50 IMPRESSION: 1. Bilateral pleural effusions with bilateral lower lobe atelectasis or developing pneumonia. 2. No acute abnormalities in the abdomen or pelvis. Individualized dose optimization techniques were used for this CT. at 1841 Reported and signed by: Joshua Reynoso MD Electronically Signed: Joshua Reynoso MD at 18:40 EDT Tel , Service support , Discharge Plan Triage Chief Complaint: Fall ED Provider: Alex Denny Dx/Rx/DC Orders Primary Care Provider: Randi Milian
--- NOTE | 2021-05-11 16:20 | RAD_ITS ---
INDICATION: weakness EXAMINATION/TECHNIQUE: X-RAY - XR Chest 1 View COMPARISON: None. FINDINGS: Streaky opacities in the left lung base. Multiple bilateral calcified granulomas. Chronic lung changes. Sternal cerclage wires and vascular clips are present from a prior sternotomy and coronary artery bypass graft procedure (CABG). Tortuous and calcified thoracic aorta. No pleural effusion or pneumothorax. Degenerative changes of the thoracic spine and shoulders. Multi level compression fractures of the thoracic spine status post vertebral augmentation. RAD/Chest 1 View (Portable) IMPRESSION: Streaky opacities in the left lung base could represent infection in the correct clinical setting. Electronically Signed: Ralph Silveira MD at 16:39 EDT Tel , Service support ,
[2021-05-11 16:25] LABS: Mucous, Urine 0 SEEN /hpf (<or=2+); Squamous Epithelial Cells - UA 0 SEEN /hpf (5-10); White Blood Cells 0 SEEN /hpf (0-5)
[2021-05-11 16:27] LABS: Color, Urine Straw (Yellow); Glucose, Dipstick Normal (Normal); Ketone-Dipstick Negative (Negative); Leukocyte Esterase-Dipstick Negative /ul (Negative); Nitrite-Dipstick Negative (Negative); Occult Blood-Urine 25 /ul (Negative); Protein-Dipstick Negative (Negative); Urine Bilirubin Dipstick Negative (Negative); Urine Clarity Clear (Clear); Urine Urobilinogen Normal (Normal)
[2021-05-11 16:40] LABS: Bacteria RARE /hpf (None Seen); Red Blood Cells-Urine 0-5 SEEN /hpf (0-5)
[2021-05-11 16:52] LABS: Absolute Lymphocyte Count 0.58 X10^3/uL (0.83-4.51); Basophil# 0.05 X10^3/uL; Basophil% 0.3 % (0-1); Eosinophil# 0.03 X10^3/uL; Eosinophils% 0.2 % (0-5); Lymphocyte # 0.58 X10^3/ul (0.83-4.51); Lymphocyte % 3.8 % (19-41); Mean Corp Hgb Conc 30.8 g/dL (32-36); Mean Corpuscular Hgb 26.9 pg (27.0-32.0); Mean Corpuscular Volume 87.4 fL (81-99); Mean Platelet Vol. 9.5 fl (6.2-12.0); Monocyte# 1.35 X10^3/uL; Monocyte% 8.9 % (0-10); NRBC Flagged by Analyzer 0 % (0-5); Neutrophil # 12.96 X10^3/uL (2.7-7.7); Neutrophil % 85.9 % (47-70); POSITIVE DIFFERENTIAL YES; Platelet Count 231 K/mm3 (150-450); RBC Distribution Width CV 18.3 % (11.6-14.6); RBC Distribution Width SD 57.7 fl (35.1-43.9); Red Blood Count 4.46 M/mm3 (4.2-5.4); White Blood Count 15.1 K/mm3 (4.4-11.0)
[2021-05-11 16:53] LABS: Differential Indicated SCAN CRITERIA MET
[2021-05-11 17:11] LABS: Troponin-I HS 23 pg/mL (3.0-54.0)
[2021-05-11 17:12] LABS: CPK Total, Creatine Kinase 60 U/L (26-192)
[2021-05-11 17:26] LABS: Differential Comment SCANNED
--- NOTE | 2021-05-11 17:50 | CT_ITS ---
EXAM: CT ABDOMEN AND PELVIS WITH INTRAVENOUS CONTRAST : 1935 CLINICAL INDICATION: llq abdominal pain TECHNIQUE: Helically acquired images were obtained of the abdomen and pelvis with intravenous contrast. This CT exam was performed using one or more of the following dose reduction techniques: automated exposure control, adjustment of the mA and/or kV according to patient size, and/or use of iterative reconstruction technique. This report was created using Flex[employer] report generation technology. CONTRAST: IV 75mL Isovue-300 COMPARISON: None. FINDINGS: LOWER THORAX: There are bilateral pleural effusions with bibasilar atelectasis. No cardiomegaly. ABDOMEN: LIVER: Unremarkable. Homogeneous. No focal mass. GALLBLADDER AND BILE DUCTS: Unremarkable. No calcified gallstones. No gallbladder distention or wall edema. No intra- or extrahepatic biliary ductal dilation. PANCREAS: Unremarkable. No focal cystic or solid mass. SPLEEN: Unremarkable. Normal size without focal cystic or solid mass. ADRENALS: Unremarkable. No nodules. KIDNEYS AND URETERS: The right kidney is slightly malrotated. Normal renal size and position. No hydronephrosis. STOMACH AND BOWEL: There is sigmoid diverticulosis with no evidence of diverticulitis. No stomach or bowel distention. PELVIS: APPENDIX: No evidence of acute appendicitis. BLADDER: Unremarkable. REPRODUCTIVE: Unremarkable as visualized. No mass. ABDOMEN and PELVIS: INTRAPERITONEAL SPACE: Unremarkable. No ascites or other fluid collection. No free air. BONES/JOINTS: Unremarkable. No suspicious lytic or blastic abnormality. SOFT TISSUES: Unremarkable. No discrete abdominal or pelvic wall hernia. VASCULATURE: Unremarkable. Abdominal aorta is non-dilated. LYMPH NODES: Unremarkable. No enlarged lymph nodes. CT/Abdomen/Pelvis W IV Cont ONLY IMPRESSION: 1. Bilateral pleural effusions with bilateral lower lobe atelectasis or developing pneumonia. 2. No acute abnormalities in the abdomen or pelvis. Individualized dose optimization techniques were used for this CT. at 1841 Reported and signed by: Joshua Reynoso MD Electronically Signed: Joshua Reynoso MD at 18:40 EDT Tel , Service support ,
[2021-05-11 18:55] LABS: Anion Gap 7 (5-15); BUN 24 mg/dL (7-18); BUN/Creat Ratio 22.6 RATIO (10-20); Calcium,Total 9.2 mg/dL (8.5-10.1); Chloride 101 mmol/L (98-107); Creatinine, Serum 1.06 mg/dL (0.55-1.02); EST Glomerular Filtration Rate 52 mL/min (>60); Est Glom Filt Rate - Afr Amer 63 mL/min (>60); Estimated Creatinine Clearance 27.36 ml/min; Glucose 102 mg/dL (74-106); Potassium 4.4 mmol/L (3.5-5.1); Sodium Level 136 mmol/L (136-145)
--- NOTE | 2021-05-11 19:28 | PCM.HP.STD ---
HPI - General General Date of Admission: 05/11/21 Date of Service: 05/11/21 Chief Complaint: Fall, confusion, poor appetite. HPI Narrative The patient is an 86 y/o F w/ PMHx: CKD stage III unclear subtype, Chronic BL LE Lymphedema w/ Chronic LE wounds following with Wound Care (R lateral calf ulcer, L forearm skin tear, recent L knee skin tear, medial LLE wound), PVD, HTN, HLD, Anxiety and Depression, Hypothyroidism, Hx BL renal stents, Aortic valve replacement (TAVR), PAF (suspect likely not anticoagulated secondary to Hx RLE hematoma which required surgery) with recent Hx of moving from [place] to [place], living with her daughter who presents to the [facility] ED on 05/11/21 secondary to history of increased fatigue, malaise, frequent falls over the last 48 hours and mild confusion as well as poor oral intake with no recent fever, chills, nausea, emesis, abdominal pain, N/V/D, cough or marked dyspnea. Daughter does report she has had recent difficulty with large pills otherwise no history of difficulty with secretions or food intake. She was recently started on augmentin as she was scratched by her cat around the time of these symptoms additionally; however, she has continued to have them unchanged. Work-up in the ED included T 97.8, heart rate 82, BP initially upon presentation 204/81 with repeat 184/64, respiratory rate 16, 93 to 95% on room air, CBC with WC 15.1, hemoglobin 12, platelet 231 with left shift and lymphopenia, BMP with BUN/creatinine 24/1.06, high-sensitivity troponin XX 3, total creatinine kinase 60, urinalysis with specific gravity 1.010, urine occult blood 25 otherwise no obvious evidence of acute UTI, CT abdomen pelvis with bilateral pleural effusions with bilateral lower lobe atelectasis or developing pneumonia with no acute abnormality in the abdomen or pelvis otherwise, chest x-ray with streaky opacity left lung base possibly infectious, CT of the head with no acute intracranial abnormality with underlying senescent changes with small vessel ischemia. In the ED patient administered IV Rocephin and azithromycin. 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 Home Medications amiodarone 200 mg PO DAILY 04/30/21 [History Last Taken 05/11/21] atorvastatin 80 mg PO DAILY 04/30/21 [History Last Taken 05/10/21] bisoprolol fumarate 2.5 mg PO DAILY 04/30/21 [History Last Taken 05/10/21] bumetanide 1 mg PO DAILY 04/30/21 [History Last Taken 05/11/21] citalopram 10 mg PO DAILY 04/30/21 [History Last Taken 05/11/21] levothyroxine 50 mcg PO DAILY 04/30/21 [History Last Taken 05/11/21] lisinopril 20 mg PO DAILY 04/30/21 [History Last Taken 05/11/21] amoxicillin-pot clavulanate [Augmentin] 1 tab PO Q12H 7 Days #14 tab 05/07/21 [Rx Last Taken Unknown] aspirin [Aspirin Low-Strength] 81 mg PO DAILY 05/11/21 [History Last Taken 05/11/21] lisinopril 10 mg PO QHS 05/11/21 [History Last Taken 05/10/21] potassium chloride 20 meq PO DAILY 05/11/21 [History Last Taken 05/11/21] tramadol 200 mg PO TID PRN 05/11/21 [History Last Taken 05/11/21 11:00] Allergy/AdvReac Type Severity Reaction Status Date / Time erythromycin base Allergy Mild Diarrhea Verified 05/11/21 15:20 meloxicam Allergy Unknown Low Verified 05/11/21 15:20 platelets other (Patient denies any marked maternal or paternal family history including HD, DM, CA.) Surgical History H/O aortic valve replacement History of kyphoplasty History of renal stent S/P TAVR (transcatheter aortic valve replacement) Social History (Updated 05/11/21 @ 21:[address] Rocio Jennings MD) household members: family Smoking Status: Never smoker alcohol intake: never substance use type: does not use ROS ROS Narrative Admission Review of Systems: CONSTITUTIONAL: No weight loss, fever, chills, + weakness or fatigue. HEENT: Eyes: No visual loss, blurred vision, double vision or yellow sclerae. Ears, Nose, Throat: No hearing loss, sneezing, congestion, runny nose or sore throat. SKIN: No rash or itching, lesions, wounds. CARDIOVASCULAR: No chest pain, chest pressure or chest discomfort, palpitations, edema, orthopnea, syncopal events. RESPIRATORY: No shortness of breath, cough or sputum, wheezing, hemoptysis. GASTROINTESTINAL: + anorexia, No nausea, vomiting or diarrhea, abdominal pain, melena, BRBPR. GENITOURINARY: No dysuria, frequency, urgency or retention. NEUROLOGICAL: + Frequent falls, confusion. No headache, dizziness, syncope, paralysis, ataxia, numbness or tingling in the extremities, focal weakness, change in bowel or bladder control, seizure. MUSCULOSKELETAL: + muscle, back pain, joint pain or stiffness. HEMATOLOGIC: + anemia, bleeding or bruising. LYMPHATICS: No enlarged nodes. No history of splenectomy. PSYCHIATRIC: + history of depression or anxiety. ENDOCRINOLOGIC: No reports of sweating, cold or heat intolerance. No polyuria or polydipsia. ALLERGIES: No history of asthma, hives, eczema or rhinitis. Vital Signs Vital Signs Vital Signs: 05/11/21 15:20 05/11/21 15:42 05/11/21 15:46 Temperature 97.7 F L 97.7 F L Temperature Source Oral Oral Pulse Rate 64 64 Respiratory Rate 16 16 Respiratory Effort Respiratory Depth Respiratory Pattern Blood Pressure 204/81 H 204/81 H Blood Pressure Mean 122 122 Pulse Ox 95 95 Oxygen Delivery Method Room Air Room Air 05/11/21 15:48 05/11/21 18:44 Temperature 97.8 F Temperature Source Oral Pulse Rate 82 Respiratory Rate 16 Respiratory Effort Normal Non-Labored Respiratory Depth Normal Respiratory Pattern Normal Blood Pressure 184/64 H Blood Pressure Mean 104 Pulse Ox 93 Oxygen Delivery Method Room Air Weight Weight: 119 lb 11.376 oz Body Mass Index (BMI) 23.3 Physical Exam Narrative Physical Examination: General: Awake, alert, oriented to self, place and recent events, does not currently appear confused, is hard of hearing and does not have her hearing aids, remains cooperative, seated upright in the ED bed in no apparent distress. Skin: Normal color, normal turgor, no icterus, no cyanosis except significant various staged ecchymoses to the extremities, abrasions to the upper extremities as well as lower extremities, right anterior jo well healing abrasion, left lateral knee abrasion with periwound erythema, notably warm to touch, mild serosanguineous drainage from the inner wound region. HEENT: AT/NC, EOMI, PERRLA, mildly dry MM, no carotid bruits or JVD noted. Lungs: Diminished throughout, greater bases, no evidence of any respiratory distress, no rales, ronchi or wheezing. Heart: Regular rate and rhythm; no gallop, rub audible, + notable SM. Abdomen: Soft, NTTP, ND, normal BS, no HSM. Extremities: No cyanosis, no clubbing, chronic bilateral lower extremity lymphedema, see skin. Neurological: Patient awake, alert, oriented as noted, cognitive function appears intact; pupils equally reactive to light and accommodation, cranial nerves II-XII grossly normal, moving all 4 extremities, no focal deficits, strength moderately to severely global decrease secondary to acute presentation. Psychiatric: Affect appears fatigued, mildly flat, no acute evidence of depressive or anxiety feelings. Results Lab / Micro Data Result Diagrams: 05/11/21 16:48 05/11/21 16:48 Labs: Laboratory Results - last 24 hr 05/11/21 16:15: Urine Color Straw, Urine Clarity Clear, Urine pH 5.0, Ur Specific [place] 1.010, Urine Protein Negative, Urine Glucose (UA) Normal, Urine Ketones Negative, Urine Occult Blood 25 H, Urine Nitrite Negative, Urine Bilirubin Negative, Urine Urobilinogen Normal, Ur Leukocyte Esterase Negative, Urine RBC 0-5 SEEN, Urine WBC 0 SEEN, Ur Squamous Epith Cells 0 SEEN, Urine Bacteria RARE, Urine Mucus 0 SEEN 05/11/21 16:48: WBC 15.1 H, RBC 4.46, Hgb 12.0, Hct 39.0, MCV 87.4, MCH 26.9 L, MCHC 30.8 L, RDW Std Deviation 57.7 H, RDW Coeff of Vick 18.3 H, Plt Count 231, MPV 9.5, Immature Gran % (Auto) 0.900, Neut % (Auto) 85.9 H, Lymph % (Auto) 3.8 L, Gaines % (Auto) 8.9, Eos % (Auto) 0.2, Baso % (Auto) 0.3, Absolute Neuts (auto) 13.0 H, Absolute Lymphs (auto) 0.58 L, Nucleated RBC % 0, Differential Comment SCANNED 05/11/21 16:48: Troponin I High Sens 23 05/11/21 16:48: Total Creatine Kinase 60 05/11/21 16:48: Sodium 136, Potassium 4.4, Chloride 101, Carbon Dioxide 28.0, Anion Gap 7, BUN 24 H, Creatinine 1.06 H, Estim Creat Clear Calc 27.36, Est GFR (MDRD) Af Amer 63, Est GFR (MDRD) Non-Af 52 L, BUN/Creatinine Ratio 22.6 H, Glucose 102, Calcium 9.[address] 05/11/21 15:55 IMPRESSION: 1. No acute intracranial abnormality. 2. Underlying senescent change with small vessel ischemia. Individualized dose optimization techniques were used for this CT. at 1839 Reported and signed by: Joshua Reynoso MD Electronically Signed: Joshua Reynoso MD at 18:38 EDT Tel , Service support , Chest X-Ray 05/11/21 16:20 IMPRESSION: Streaky opacities in the left lung base could represent infection in the correct clinical setting. Electronically Signed: Ralph Silveira MD at 16:39 EDT Tel , Service support , Abdomen/Pelvis CT 05/11/21 17:50 IMPRESSION: 1. Bilateral pleural effusions with bilateral lower lobe atelectasis or developing pneumonia. 2. No acute abnormalities in the abdomen or pelvis. Individualized dose optimization techniques were used for this CT. at 1841 Reported and signed by: Joshua Reynoso MD Electronically Signed: Joshua Reynoso MD at 18:40 EDT Tel , Service support , Assessment & Plan Assessment/Plan (1) Cellulitis: QUALIFIERS: Site of cellulitis: extremity Site of cellulitis of extremity: lower extremity Laterality: left Qualified Code(s): L03.116 - Cellulitis of left lower limb PLAN: The patient is an 86 y/o F w/ PMHx: CKD stage III unclear subtype, Chronic BL LE Lymphedema w/ Chronic LE wounds following with Wound Care (R lateral calf ulcer, L forearm skin tear, recent L knee skin tear, medial LLE wound), PVD, HTN, HLD, Anxiety and Depression, Hypothyroidism, Hx BL renal stents, Aortic valve replacement (TAVR), PAF (suspect likely not anticoagulated secondary to Hx RLE hematoma which required surgery) with recent Hx of moving from [place] to [place], living with her daughter who presents to the [facility] ED on 05/11/21 secondary to history of increased fatigue, malaise, frequent falls over the last 48 hours and mild confusion as well as poor oral intake with no recent fever, chills, nausea, emesis, abdominal pain, N/V/D, cough or marked dyspnea. 1. LLE Lateral Knee Infected Abrasion with history of Recent Fall: Patient with notable periwound erythema and warm to touch, mild drainage noted, felt to be primary source of acute presentation but unclear if #2 is also contributing, will admit to medical surgical floor, maintain on IV Rocephin, will obtain Wound Cx, will obtain Wound MRSA PCR, plan repeat CBC in AM, continue affected extremity elevation above heart when seated and in bed, monitor erythema outline with VS checks, wound RN consulted, continue dressings pending her evaluation. PT, OT, case management consultations for discharge planning. 2. Questionable CAP versus possible Aspiration component, recent difficulty with swallowing pills: Chest x-ray with questionable left lower lobe streaking, CTPA with bilateral effusions, possible developing pneumonia versus atelectasis, no marked finding on evaluation however oxygenation 93 to 95% while in the ED, will maintain on oxygen with wean as tolerated to room air, as needed albuterol, maintain on IV Rocephin as noted above in addition to IV azithromycin (allergy reported just diarrhea), judiciously hydrate with plan repeat chest x-ray in a.m. to see if any further more evident, HOB, IS parameters w/ pending sputum cultures, respiratory viral panel and urine antigens. Speech therapy consulted. 3. Fatigue, malaise, frequent falls with failure to thrive adult: Likely associate with #1, possibly #2, will maintain on fall precautions, given history of recent poor oral intake nutrition consulted and will also request speech involvement given history of recent difficulties with pill intake, PT, OT, case management consultations for discharge planning. 4. Chronic Kidney Disease Stage III, unclear subtype: Admission BUN/Cr 24/1.06, baseline renal function similar reportedly 1.0-1.1, repeat BMP in AM. 5. Bilateral lower extremity lymphedema: Complicates presentation, not markedly pitting currently, will place snug Ramu wraps of patient able to tolerate with elevation. 6. PAF: We will continue patient home amiodarone, bisoprolol regimen, not anticoagulated secondary to history of falls as well as hematoma most recently per wound care note. Will request amiodarone level given generalized complaints. 7. Hypothyroidism: Continue home synthroid regimen, TSH and free T4 pending pending. 8. Anxiety and depression: We will continue patient home citalopram regimen. 9. Hypertension: Continue home regimen including lisinopril, bumetanide, bisoprolol with hold parameters as needed, PRN hydralazine. 10. Hyperlipidemia: Continue home statin regimen. 11. Valvular heart disease: History of aortic valve replacement with reportedly TAVR. No echocardiogram on record. 12. DVT prophylaxis: SCDs, heparin. 13. CODE status: Patient SALVADOR is the patient's daughter and living will is currently in place. Discussed CODE status at length including difference between FULL code, DNR-CCA and DNR-CC status. Following discussions about the differences in these status, requested DNR-CCA, no intubation status. Advanced Care Planning Face to Face Time: 16 minutes. Charges/Coding Visit Charges Inpatient E&M: 88884 Init Hosp L3 Procedures Hospitalists Procedures: 87257 Advncd Care Plan 30 Min
[2021-05-11] MEDS: Ceftriaxone 1 GM/50 ML BAG IV (20:30)
[2021-05-11 21:32] LABS: Procalcitonin 0.07 ng/mL (0.00-0.09)
[2021-05-11] MEDS: 0.9% Normal Saline 1,000 ML 100 ML IV (21:49)
[2021-05-11] MEDS: Lisinopril 10 MG Tablet PO (21:50)
[2021-05-11] MEDS: Heparin Injection (Vial) 5,000 UNIT/ML VIAL 5000 UNIT SC (21:50)
[2021-05-11] MEDS: Atorvastatin Calcium 80 MG Tablet PO (21:50)
[2021-05-11] MEDS: MELATONIN 3 MG TABLET PO (21:50)
[2021-05-11] MEDS: Acetaminophen 325 MG Tablet 650 MG PO (21:51)
[2021-05-11] MEDS: hydrALAZINE 20 MG/ML Vial 10 MG IV (21:51)
[2021-05-12] VITALS (8 sets, daily range): BP systolic 146–185; BP diastolic 60–86; PULSE 64–80; RESP 16–24; TEMP 36.4–37.3; O2SAT 93–100
[2021-05-12 00:17] LABS: M R Staph aureus DNA By PCR POSITIVE (Negative); Probe Check PASS; Staph aureus DNA By PCR POSITIVE (Negative)
[2021-05-12] MEDS: traMADol 50 MG Tablet 100 MG PO ×2 (01:20→21:46)
--- NOTE | 2021-05-12 01:22 | PCM.RX.CS ---
Consult Pharmacy has been consulted to manage selected antiobiotic: Vancomycin Type of Consult: New start Suspected Infection: Pneumonia Prior Doses of Antibiotics Received/Current Regimen: Medications Vancomycin HCl () 500 mg in 100 mls @ 100 mls/hr IV Q24H MYLA Vancomycin HCl 750 mg/ Sodium (Chloride) 265 mls @ 250 mls/hr IV X1 ONE Stop: 05/12/21 02:03 Last Admin: 05/12/21 01:13 Dose: 250 mls/hr Labs: Sodium 136 mmol/L (136-145) 05/11/21 16:48 Potassium 4.4 mmol/L (3.5-5.1) 05/11/21 16:48 Chloride 101 mmol/L (98-107) 05/11/21 16:48 Carbon Dioxide 28.0 mmol/L (21.0-32.0) 05/11/21 16:48 Anion Gap 7 (5-15) 05/11/21 16:48 BUN 24 mg/dL (7-18) H 05/11/21 16:48 Creatinine 1.06 mg/dL (0.55-1.02) H 05/11/21 16:48 Est GFR (MDRD) Af Amer 63 mL/min (>60) 05/11/21 16:48 Est GFR (MDRD) Non-Af 52 mL/min (>60) L 05/11/21 16:48 BUN/Creatinine Ratio 22.6 RATIO (10-20) H 05/11/21 16:48 Glucose 102 mg/dL (74-106) 05/11/21 16:48 Microbiology: Microbiology 05/11/21 16:15 Urine, Random Legionella Antigen - Final 05/11/21 16:15 Urine, Random Streptococcus pneumoniae Antigen (M - Final 05/11/21 19:14 Nasal Secretion SARS-CoV-2 Antigen (Rapid) - Final Weight used for dosin.7 kg Estimated Creatinine Clearance: 27.4 Goal Trough: 15-20 mcg/mL Pharmacy Plan for Drug Dosing: Pharmacy Service will continue to monitor and adjust dosing as required. Follow-Up Labs: Trough Vancomycin Labs to be done on [date and time ordered]: 05/14/21 @0030
[2021-05-12] MEDS: Levothyroxine 50 MCG Tablet PO (04:43)
[2021-05-12] MEDS: Acetaminophen 325 MG Tablet 650 MG PO ×2 (04:43→15:39)
[2021-05-12] MEDS: hydrALAZINE 20 MG/ML Vial 10 MG IV (04:45)
[2021-05-12] MEDS: 0.9% Saline Lock 10 ML Syringe IV (04:46)
[2021-05-12 05:31] LABS: Absolute Lymphocyte Count 0.69 X10^3/uL (0.83-4.51); Absolute Neutrophil Count 9.3 X10^3/uL (2.0-7.7); Basophil# 0.04 X10^3/uL; Basophil% 0.4 % (0-1); Eosinophil# 0.02 X10^3/uL; Eosinophils% 0.2 % (0-5); Hematocrit 36.9 % (37-47); Hemoglobin 11.7 g/dL (12.0-15.0); Lymphocyte # 0.69 X10^3/ul (0.83-4.51); Mean Corp Hgb Conc 31.7 g/dL (32-36); Mean Corpuscular Hgb 27.5 pg (27.0-32.0); Mean Corpuscular Volume 86.8 fL (81-99); Mean Platelet Vol. 9.4 fl (6.2-12.0); Monocyte# 1.26 X10^3/uL; NRBC Flagged by Analyzer 0 % (0-5); Neutrophil # 9.31 X10^3/uL (2.7-7.7); Neutrophil % 81.6 % (47-70); Platelet Count 203 K/mm3 (150-450); RBC Distribution Width CV 18.6 % (11.6-14.6); RBC Distribution Width SD 58.4 fl (35.1-43.9); Red Blood Count 4.25 M/mm3 (4.2-5.4); White Blood Count 11.4 K/mm3 (4.4-11.0)
--- NOTE | 2021-05-12 05:55 | RAD_ITS ---
STUDY: X-RAY CHEST REASON FOR EXAM: Female, 86 years old. ? PNA TECHNIQUE: Single AP portable view of the chest. COMPARISON: Comparison is made with prior study date 05/11/2021. FINDINGS: Slight progression in the left lower lobe infiltrate superimposed on chronic interstitial scarring in both lungs. There is no demonstrated pleural abnormality. Sternal cerclage wires and vascular clips are present from a prior sternotomy and coronary artery bypass graft procedure (CABG). Normal mediastinum and karin. Normal visualized pulmonary arteries. There is atherosclerotic calcification of the aortic arch with tortuosity. There is a dextroscoliosis of the thoracic spine. Prior vertebroplasty at multiple thoracic and upper lumbar vertebrae. There is degenerative osteoarthritis of the bilateral shoulders. There is no demonstrated abnormality of the visualized soft tissue structures of the upper abdomen. RAD/Chest 1 View (Portable) IMPRESSION: Progressive left lower lobe infiltrate superimposed on chronic pulmonary scarring. Electronically Signed: Milton Swartz MD at 10:24 EDT , Service support ,
[2021-05-12 06:06] LABS: ALB/GLOB Ratio 0.8 RATIO (0.9-2.4); AST(SGOT) 33 U/L (15-37); Alanine Aminotransfer ALT/SGPT 35 U/L (13-56); Albumin, Serum 2.6 g/dL (3.2-5.0); Alkaline Phosphatase 73 U/L (45-117); Anion Gap 6 (5-15); BUN 19 mg/dL (7-18); BUN/Creat Ratio 22.6 RATIO (10-20); Calcium,Total 8.3 mg/dL (8.5-10.1); Chloride 104 mmol/L (98-107); Creatinine, Serum 0.84 mg/dL (0.55-1.02); EST Glomerular Filtration Rate 68 mL/min (>60); Est Glom Filt Rate - Afr Amer 83 mL/min (>60); Globulin 3.2 g/dL (2.2-4.2); Glucose 113 mg/dL (74-106); Potassium 3.5 mmol/L (3.5-5.1); Protein, Total 5.8 g/dL (6.4-8.2); Sodium Level 137 mmol/L (136-145); T4 Free Direct 1.22 ng/dL (0.76-1.46)
[2021-05-12] MEDS: Potassium Chloride Oral Tablet 20 MEQ PO (07:54)
[2021-05-12] MEDS: Amiodarone 200 MG Tablet PO (07:54)
[2021-05-12] MEDS: Magnesium Hydroxide 30 ML UDC PO (07:54)
[2021-05-12] MEDS: Senna/Docusate Sodium 1 Tablet 2 TABLET PO (07:54)
[2021-05-12] MEDS: Bumetanide 0.5 MG Tablet 1 MG PO (07:55)
[2021-05-12] MEDS: Bisoprolol Fumarate 5 MG Tablet 2.5 MG PO (07:56)
[2021-05-12] MEDS: Aspirin E.C. 81 MG Tablet PO (07:56)
[2021-05-12] MEDS: Citalopram 10 MG Tablet PO (07:56)
[2021-05-12] MEDS: Heparin Injection (Vial) 5,000 UNIT/ML VIAL 5000 UNIT SC ×2 (07:57→21:47)
[2021-05-12] MEDS: Lisinopril 20 MG Tablet PO (07:57)
--- NOTE | 2021-05-12 10:52 | WOUNDNOTE ---
wound photo: right lateral jo
--- NOTE | 2021-05-12 10:52 | WOUNDNOTE ---
wound photo: left knee
--- NOTE | 2021-05-12 11:35 | CASEMGMT ---
TONG RAMIREZ CLINICAL MEDICAL ASSISTANT JAMES to room to meet with patient and her dtr, Irasema, who is @ bedside for initial transition planning/care coordination assessment. TONG RAMIREZ introduced self and role at [facility]. Pt resting in bed w/some confusion noted. Dtr voices understanding and consents to assessment at this time. Care providers, pharmacy, and demographics verified/updated at this time w/dtr and the following information obtained. PCP: Dr Milian Specialists:Wound Center--goes Q Monday Preferred Pharmacy: [facility] Retail Insurance: AARP [facility] Prescription Benefit: Yes Living Will/HPOA: Dtr states pt has a LW and HCPOA, but they were completed in [place] where pt just moved from. Dtr made aare AD do not transfer from state to [facility] and new ones would need to be completed once pt is Oriented, if she wishes to complete them. Dtr given Insurance Verification Clerk Rac card with number to call if chooses in the future to utilize [facility] social work for advanced directive completion. Educated dtr that, if patient so chooses, can come back to [facility] and meet with a SW as an outpatient to complete health care advanced directives. She expresses understanding. LNOK: Dtr, Irasema Mtz. Dtr, Evy Medina Living Arrangements: Pt lives w/dtr, Irasema, in [place]. They live in a one-story home w/ramp entrance. Pt has lived in [place], where her dtr, Evy has helped to care for her for the past 11 yrs and just moved in w/[facility] about 3 weeks ago. Irasema states pt is usually oriented and not confused and able to take care of herself until a few days ago, where she started having confusion and fell. Per Irasema, something similar happened a few yrs ago, when pt got an infection, and once infection resolved, she returned to her baseline. Irasema states she works during the day. She leaves around 0700 and returns @ 1800 and pt stays home alone during that time. TONG RAMIREZ discussed discharge planning and discussed options of SNF or HHC. Irasema states she does not want pt to go to a SNF and wishes for her to return home w/her. TONG RAMIREZ advised Irasema that someone should be w/pt 24/7 if pt having any confusion, for her safety, and should not be home alone until she is oriented and able to take care of herself safely. Irasema states they have several other family members nearby that are supportive and states she plans to have them take turns staying w/pt while she (Irasema) is @ work and then she (Irasema) will help take care of pt during the night. Offered list of local Private duty aides and Irasema accepted at this time and voices appreciation. Transportation: Irasema or granddaughter DME: Pt has the following DME: shower chair (not using currently, as pt sponge-baths for now d/t wounds), grab bars on toilet, rollator, medical alert button. Irasema denies need for further DME at this time. HHC/SNF: No hx of SNF. Had HHC in the past in [place]. Dtr wishes for pt to return home with her and would like HHC. She states the wound center was in the process of setting up HHC for SN for wound care and she thinks it was [facility]. [facility] and spoke w/Sarah. She states pt was not established w/them yet, and would need a new order. Dtr was provided with list of HHC providers including quality and resource use data and consistent with the patient's preferred geographic region, medical needs, and insurance network. She states prefers [facility]HC as this was previously initiated w/them. Order placed for HHC: SN, PT/OT. Irasema states does not need an aide. CM to follow for further discharge planning/needs. Dtr voices no further concerns/needs at this time. Advised her to ask for CM if any further questions/concerns/needs arise. Voices understanding. PLAN: Home w/[facility] H[facility], family support, and discharge plans in place. Freddy GALLAGHER RN CM
--- NOTE | 2021-05-12 14:16 | CHAPLAIN ---
Type of Pastoral Visit _x__ Initial Visit ___ Follow-up Visit ___ On-call Visit ___ General Patient Visit ___ Spiritual Assessment ___ Family Conference ___ Bereavement ___ Rapid Response ___ Code Blue ___ Other (describe below) Pastoral Care Referral From ___ Patient _x__ Family ___ Nurse ___ Physician ___ Health Care Technician ___ All Purpose Clerk ___ Other (describe below) Sacrament/Intervention _x__ Active listening ___ Anointing ___ Episcopal ___ Bereavement ___ Communion ___ Rohini exploration ___ _x__ Life review _x__ Prayer ___ Reconciliation ___ Sacrament of Sick _x__ Supportive presence ___ Wedding ___ Other (describe below) Pastoral Comments patient is here in [place] on visit with daughter; pt has some confusion but is pleasant; daughter does most of the talking and information giving; pt would like prayer; daughter would like another visit tomorrow for her mother
[2021-05-12] MEDS: LORazepam 0.5 MG Tablet 0.25 MG PO (15:40)
--- NOTE | 2021-05-12 18:41 | PCM.PN.HOSP ---
Subjective Subjective Patient was seen and examined today, she has been restless and agitated today, her daughter is in the room and states that when the patient is ill she sometimes gets this way. Patient was admitted yesterday for community-acquired pneumonia and cellulitis of the lower legs, I talked with wound care today and they felt that the patient's legs did not appear severely cellulitic, most of the changes that the wound care nurse noticed today were chronic changes. Patient is not requiring oxygen at this time and is not coughing, according to the daughter, she has had no symptoms that she would attribute to an upper respiratory tract infection or pneumonia. Patient was brought to the emergency room because she sustained a fall at home. Objective Data Objective Data Vital Signs: Vital Signs Temp Pulse Resp BP Pulse Ox 99.1 F 72 18 146/86 H 93 05/12/21 14:50 05/12/21 14:50 05/12/21 14:50 05/12/21 14:50 05/12/21 14:50 Oxygen Delivery Method Room Air Weight: 52.7 kg Body Mass Index (BMI) 19.9 Intake & Output: Intake and Output for Last 24 Hours 05/10/21 05/11/21 05/12/21 23:59 23:59 23:59 Intake Total 956 / 956 1965 / 1965 Output Total 200 / 200 550 / 550 Balance 756 / 756 1415 / 1415 Lab / Micro Data Result Diagrams: 05/12/21 05:18 05/12/21 05:18 Labs: Laboratory Results - last 24 hr 05/11/21 16:48: Sodium 136, Potassium 4.4, Chloride 101, Carbon Dioxide 28.0, Anion Gap 7, BUN 24 H, Creatinine 1.06 H, Estim Creat Clear Calc 27.36, Est GFR (MDRD) Af Amer 63, Est GFR (MDRD) Non-Af 52 L, BUN/Creatinine Ratio 22.6 H, Glucose 102, Calcium 9.2 05/11/21 16:48: Magnesium 2.0 05/11/21 16:48: Procalcitonin 0.07 05/11/21 22:20: S.aureus Protein A PCR POSITIVE H, MRSA (PCR) POSITIVE H 05/12/21 05:18: Sodium 137, Potassium 3.5, Chloride 104, Carbon Dioxide 27.0, Anion Gap 6, BUN 19 H, Creatinine 0.84, Estim Creat Clear Calc 40.00, Est GFR (MDRD) Af Amer 83, Est GFR (MDRD) Non-Af 68, BUN/Creatinine Ratio 22.6 H, Glucose 113 H, Calcium 8.3 L, Total Bilirubin 0.70, AST 33, ALT 35, Alkaline Phosphatase 73, Total Protein 5.8 L, Albumin 2.6 L, Globulin 3.2, Albumin/Globulin Ratio 0.8 L, TSH 12.00 H, Free T4 1.22 05/12/21 05:18: WBC 11.4 H, RBC 4.25, Hgb 11.7 L, Hct 36.9 L, MCV 86.8, MCH 27.5, MCHC 31.7 L, RDW Std Deviation 58.4 H, RDW Coeff of Vick 18.6 H, Plt Count 203, MPV 9.4, Immature Gran % (Auto) 0.800, Neut % (Auto) 81.6 H, Lymph % (Auto) 6.0 L, [place] % (Auto) 11.0 H, Eos % (Auto) 0.2, Baso % (Auto) 0.4, Absolute Neuts (auto) 9.3 H, Absolute Lymphs (auto) 0.69 L, Nucleated RBC % 0 Micro: Microbiology 05/11/21 22:20 Wound - Leg, Left Gram Stain - Final 05/11/21 22:20 Wound - Leg, Left Wound Culture - Preliminary Staphylococcus aureus 05/12/21 00:35 Mucosa - Nasopharyngeal Respiratory Panel (PCR) - Final 05/11/21 16:15 Urine, Random Legionella Antigen - Final 05/11/21 16:15 Urine, Random Streptococcus pneumoniae Antigen (M - Final 05/11/21 19:14 Nasal Secretion SARS-CoV-2 Antigen (Rapid) - Final Radiography Diagnostic Testing: Radiology Impression Brain CT 05/11/21 15:55 IMPRESSION: 1. No acute intracranial abnormality. 2. Underlying senescent change with small vessel ischemia. Individualized dose optimization techniques were used for this CT. at 1839 Reported and signed by: Joshua Reynoso MD Electronically Signed: Joshua Reynoso MD at 18:38 EDT Tel , Service support , Abdomen/Pelvis CT 05/11/21 17:50 IMPRESSION: 1. Bilateral pleural effusions with bilateral lower lobe atelectasis or developing pneumonia. 2. No acute abnormalities in the abdomen or pelvis. Individualized dose optimization techniques were used for this CT. at 1841 Reported and signed by: Joshua Reynoso MD Electronically Signed: Joshua Reynoso MD at 18:40 EDT Tel , Service support , Chest X-Ray 05/12/21 05:55 IMPRESSION: Progressive left lower lobe infiltrate superimposed on chronic pulmonary scarring. Electronically Signed: Milton Swartz MD at 10:24 EDT , Service support , Physical Exam Const alert Constitutional Narrative: Patient is alert but appears confused, she is not oriented as to time or place. General Appearance: cooperative, well kempt and well developed Orientation / Consciousness: awake, oriented to person, oriented to place and oriented to time HEENT normocephalic, head/scalp atraumatic and moist oral mucous membranes Head and Scalp: normocephalic Eyes PERRL, EOMs intact bilaterally and conjunctivae normal Neck nuchal rigidity, supple, no JVD, thyroid normal and no carotid bruits General: trachea midline Resp normal respiratory effort, no retractions, no use of accessory muscles and clear to auscultation bilaterally Auscultation: Negative for rales, rhonchi or wheezes Cardio regular rate, regular rhythm, S1 normal heart sound, S2 normal heart sound, no rub and no gallops Cardio Narrative: There is a 3/6 systolic murmur noted at the left sternal border and apex GI normal to inspection, nondistended, normoactive bowel sounds, soft to palpation, non-tender and non-distended Extremity Extremity Narrative: Patient's Ramu wraps were not removed for examination of the patient's lower extremities during my exam Skin General Skin Exam: no breakdown Neuro CN's II-XII intact bilaterally, no focal motor deficits and no sensory deficits noted Neuro Narrative: Patient is alert but confused Sensorium / Orientation: awake and alert Speech: speech normal Psych thought process normal Psych Narrative: Patient is alert but confused Assessment & Plan Assessment/Plan (1) Cellulitis: QUALIFIERS: Site of cellulitis: extremity Site of cellulitis of extremity: lower extremity Laterality: left Qualified Code(s): L03.116 - Cellulitis of left lower limb PLAN: 1. Left lower leg cellulitis-I do not feel the patient needs vancomycin at this time, I have elected to continue Rocephin, I have asked infectious diseases to see the patient regarding de-escalation of antibiotics. #2 possible left lower lobe community-acquired pneumonia, I have elected to keep the patient on Rocephin and Zithromax at this time, infectious diseases will see the patient in consultation #3 metabolic encephalopathy-patient's daughter states the patient is usually alert and able to care for self, she denies any history of dementia in the patient #4 chronic kidney disease stage III #5 bilateral lower extremity lymphedema #6 chronic anxiety and depression #7 hypothyroidism #8 aortic valvular disease-history of TAVR #9 paroxysmal atrial fibrillation Charges/Coding Visit Charges Inpatient E&M: 65216 Subs Hosp L2
[2021-05-12] MEDS: Albuterol 2.5 MG/3 ML VIAL.NEB. INHALATION (18:49)
[2021-05-12] MEDS: Lisinopril 10 MG Tablet PO (21:48)
[2021-05-12] MEDS: Atorvastatin Calcium 80 MG Tablet PO (21:48)
[2021-05-12] MEDS: Ceftriaxone 1 GM/50 ML BAG IV (21:48)
[2021-05-13] VITALS (13 sets, daily range): BP systolic 136–162; BP diastolic 52–102; PULSE 73–95; RESP 16–24; TEMP 36.8–38; O2SAT 86–99
[2021-05-13] MEDS: Acetaminophen 325 MG Tablet 650 MG PO ×2 (05:31→23:07)
[2021-05-13] MEDS: Albuterol 2.5 MG/3 ML VIAL.NEB. INHALATION ×3 (05:48→18:40)
[2021-05-13] MEDS: Levothyroxine 50 MCG Tablet PO (05:58)
[2021-05-13] MEDS: LORazepam 0.5 MG Tablet PO (05:59)
--- NOTE | 2021-05-13 07:33 | RAD_ITS ---
STUDY: X-RAY CHEST REASON FOR EXAM: Female, 86 years old. chf TECHNIQUE: Single AP portable view of the chest. COMPARISON: Comparison is made with prior study dated 05/12/2021. FINDINGS: There now is a new infiltrate in the right upper lobe. Increased markings at the right lung base. Improved aeration at the left lung base. This is superimposed on mild degree of vascular congestion. Sternal cerclage wires and vascular clips are present from a prior sternotomy and coronary artery bypass graft procedure (CABG). Normal mediastinum and karin. Normal visualized pulmonary arteries. There is atherosclerotic calcification of the aortic arch with tortuosity. There are diffuse degenerative changes of the visualized thoracic spine. Multiple prior vertebral plasties of the thoracic and upper lumbar vertebrae. Normal visualized ribs, clavicles, and shoulders. There is no demonstrated abnormality of the visualized soft tissue structures of the upper abdomen. RAD/Chest 1 View (Portable) IMPRESSION: Progressive right upper lobe and right lower lobe infiltrates. Improved aeration to left lung base. Mild degree of vascular congestion. Electronically Signed: Milton Swartz MD at 8:20 EDT , Service support ,
[2021-05-13 08:21] LABS: Absolute Lymphocyte Count 0.49 X10^3/uL (0.83-4.51); Absolute Neutrophil Count 15.4 X10^3/uL (2.0-7.7); Basophil# 0.03 X10^3/uL; Basophil% 0.2 % (0-1); Hematocrit 34.2 % (37-47); Hemoglobin 10.9 g/dL (12.0-15.0); Lymphocyte # 0.49 X10^3/ul (0.83-4.51); Lymphocyte % 2.8 % (19-41); Mean Corp Hgb Conc 31.9 g/dL (32-36); Mean Corpuscular Hgb 27.3 pg (27.0-32.0); Mean Corpuscular Volume 85.5 fL (81-99); Mean Platelet Vol. 9.2 fl (6.2-12.0); Monocyte# 1.28 X10^3/uL; Monocyte% 7.4 % (0-10); NRBC Flagged by Analyzer 0 % (0-5); Neutrophil # 15.38 X10^3/uL (2.7-7.7); Neutrophil % 88.8 % (47-70); POSITIVE DIFFERENTIAL YES; Platelet Count 231 K/mm3 (150-450); RBC Distribution Width CV 18.6 % (11.6-14.6); RBC Distribution Width SD 57.9 fl (35.1-43.9); White Blood Count 17.3 K/mm3 (4.4-11.0)
[2021-05-13 08:22] LABS: Differential Indicated SCAN CRITERIA MET
[2021-05-13 08:39] LABS: ALB/GLOB Ratio 0.7 RATIO (0.9-2.4); AST(SGOT) 42 U/L (15-37); Alanine Aminotransfer ALT/SGPT 41 U/L (13-56); Albumin, Serum 2.3 g/dL (3.2-5.0); Alkaline Phosphatase 68 U/L (45-117); Anion Gap 3 (5-15); BUN 15 mg/dL (7-18); BUN/Creat Ratio 18.9 RATIO (10-20); Calcium,Total 8.4 mg/dL (8.5-10.1); Chloride 104 mmol/L (98-107); Creatinine, Serum 0.79 mg/dL (0.55-1.02); EST Glomerular Filtration Rate 73 mL/min (>60); Est Glom Filt Rate - Afr Amer 88 mL/min (>60); Estimated Creatinine Clearance 33.47 ml/min; Globulin 3.4 g/dL (2.2-4.2); Glucose 119 mg/dL (74-106); Potassium 3.9 mmol/L (3.5-5.1); Protein, Total 5.7 g/dL (6.4-8.2); Sodium Level 134 mmol/L (136-145)
[2021-05-13] MEDS: Aspirin E.C. 81 MG Tablet PO (09:44)
[2021-05-13] MEDS: Citalopram 10 MG Tablet PO (09:44)
[2021-05-13] MEDS: Lisinopril 20 MG Tablet PO (09:44)
[2021-05-13] MEDS: Amiodarone 200 MG Tablet PO (09:44)
[2021-05-13] MEDS: Bumetanide 0.5 MG Tablet 1 MG PO (09:44)
[2021-05-13] MEDS: Bisoprolol Fumarate 5 MG Tablet 2.5 MG PO (09:45)
[2021-05-13] MEDS: Potassium Chloride Oral Tablet 20 MEQ PO (09:45)
--- NOTE | 2021-05-13 10:13 | CT_ITS ---
STUDY: CT BRAIN WITHOUT CONTRAST REASON FOR EXAM: Female, 86 years old. Mental status change RADIATION DOSAGE (If Supplied By Facility): CTDIvol = ( 44.99 ) mGy, DLP = ( 812.98 ) mGycm TECHNIQUE: Transaxial CT imaging of the brain was performed without administration of intravenous contrast material. Individualized dose optimization techniques were used for this CT. COMPARISON: Comparison is made with prior study dated 05/11/2021. FINDINGS: Normal soft tissue structures. Normal calvarium. There is moderate cerebral atrophy with widening of the extra-axial spaces and ventricular dilatation. There are areas of decreased attenuation within the white matter tracts of the supratentorial brain, consistent with microvascular disease changes. Stable old lacunar infarct in the left basal ganglion. Normal brainstem. Normal cerebellum. There is no intracranial hemorrhage. There are no findings of an acute ischemic infarction. Atherosclerotic calcification of the vertebral arteries and cavernous portions of the internal carotid arteries bilaterally. Normal visualized paranasal sinuses. CT/Brain/Head without Contrast IMPRESSION: Chronic involutional changes of the brain. Electronically Signed: Milton Swartz MD at 11:58 EDT , Service support ,
[2021-05-13] MEDS: Heparin Injection (Vial) 5,000 UNIT/ML VIAL 5000 UNIT SC ×2 (11:21→23:02)
--- NOTE | 2021-05-13 16:05 | PCM.CONS.GEN ---
Assessment & Plan Assessment/Plan (1) Noninfected skin tear of left lower extremity: QUALIFIERS: Encounter type: initial encounter Qualified Code(s): S81.812A - Laceration without foreign body, left lower leg, initial encounter (2) Encephalopathy: PLAN: Hypoxia, lymphopenia, encephalopathy, so will check covid pcr. UAgs neg, will stop azithro, cont ceftriaxone for now. Wounds doing well. Will follow, thank you, d/w primary team HPI Consult Data Date of Consult: 05/13/21 HPI Narrative HPI Narrative: KIRK PINEDA, is a 86 F who presented with falls and confusion from home. Moved from [place] just a few weeks ago. No fever. Pt unable to provide history or ROS. Admitted on azithro/ceftriaxone, seen by wound care. 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 Home Medications amiodarone 200 mg PO DAILY 04/30/21 [History Last Taken 05/11/21] atorvastatin 80 mg PO DAILY 04/30/21 [History Last Taken 05/10/21] bisoprolol fumarate 2.5 mg PO DAILY 04/30/21 [History Last Taken 05/10/21] bumetanide 1 mg PO DAILY 04/30/21 [History Last Taken 05/11/21] citalopram 10 mg PO DAILY 04/30/21 [History Last Taken 05/11/21] levothyroxine 50 mcg PO DAILY 04/30/21 [History Last Taken 05/11/21] lisinopril 20 mg PO DAILY 04/30/21 [History Last Taken 05/11/21] amoxicillin-pot clavulanate [Augmentin] 1 tab PO Q12H 7 Days #14 tab 05/07/21 [Rx Last Taken Unknown] aspirin [Aspirin Low-Strength] 81 mg PO DAILY 05/11/21 [History Last Taken 05/11/21] lisinopril 10 mg PO QHS 05/11/21 [History Last Taken 05/10/21] potassium chloride 20 meq PO DAILY 05/11/21 [History Last Taken 05/11/21] tramadol 200 mg PO TID PRN 05/11/21 [History Last Taken 05/11/21 11:00] Allergy/AdvReac Type Severity Reaction Status Date / Time erythromycin base Allergy Mild Diarrhea Verified 05/11/21 15:20 meloxicam Allergy Unknown Low Verified 05/11/21 15:20 platelets Family History other Surgical History H/O aortic valve replacement History of kyphoplasty History of renal stent S/P TAVR (transcatheter aortic valve replacement) Social History (Updated 05/11/21 @ 21:[address] Rocio Jennings MD) household members: family Smoking Status: Never smoker alcohol intake: never substance use type: does not use Physical Exam Const no apparent distress General Appearance: lethargic Exam Limitations: altered mental status HEENT normocephalic and head/scalp atraumatic Eyes PERRL and EOMs intact bilaterally Neck supple and No nodes Resp clear to auscultation bilaterally Auscultation: diminished lung sounds Cardio regular rate and regular rhythm GI normal to inspection, nondistended, normoactive bowel sounds Extremity no clubbing, cyanosis or edema Skin Skin Narrative: wounds on BLE Neuro CN's II-XII intact bilaterally Lab / Micro Data Result Diagrams: 05/13/21 08:15 05/13/21 08:15 Labs: Laboratory Results - last 24 hr 05/13/21 08:15: WBC 17.3 H, RBC 4.00 L, Hgb 10.9 L, Hct 34.2 L, MCV 85.5, MCH 27.3, MCHC 31.9 L, RDW Std Deviation 57.9 H, RDW Coeff of Vick 18.6 H, Plt Count 231, MPV 9.2, Immature Gran % (Auto) 0.800, Neut % (Auto) 88.8 H, Lymph % (Auto) 2.8 L, [place] % (Auto) 7.4, Eos % (Auto) 0.0, Baso % (Auto) 0.2, Absolute Neuts (auto) 15.4 H, Absolute Lymphs (auto) 0.49 L, Nucleated RBC % 0 05/13/21 08:15: Sodium 134 L, Potassium 3.9, Chloride 104, Carbon Dioxide 27.0, Anion Gap 3 L, BUN 15, Creatinine 0.79, Estim Creat Clear Calc 33.47, Est GFR (MDRD) Af Amer 88, Est GFR (MDRD) Non-Af 73, BUN/Creatinine Ratio 18.9, Glucose 119 H, Calcium 8.4 L, Total Bilirubin 0.60, AST 42 H, ALT 41, Alkaline Phosphatase 68, Total Protein 5.7 L, Albumin 2.3 L, Globulin 3.4, Albumin/Globulin Ratio 0.7 L Micro: Microbiology 05/11/21 22:20 Wound - Leg, Left Gram Stain - Final 05/11/21 22:20 Wound - Leg, Left Wound Culture - Final Meth. resistant Staph. aureus Radiology Impression Chest X-Ray 05/13/21 07:33 IMPRESSION: Progressive right upper lobe and right lower lobe infiltrates. Improved aeration to left lung base. Mild degree of vascular congestion. Electronically Signed: Milton Swartz MD at 8:20 EDT , Service support , Brain CT 05/13/21 10:13 IMPRESSION: Chronic involutional changes of the brain. Electronically Signed: Milton Swartz MD at 11:58 EDT , Service support ,
--- NOTE | 2021-05-13 19:25 | PN.HOSP_ITS ---
Subjective Subjective Patient was seen by infectious diseases today, antibiotic coverage was adjusted, patient underwent a PCR test for Covid which was negative. Patient is still confused this morning and is unsteady on her feet, she is requiring supplemental oxygen at 4 L at the time of my dictation today. Objective Data Objective Data Vital Signs: Vital Signs Temp Pulse Resp BP Pulse Ox 99.6 F H 88 24 H 136/87 H 87 05/13/21 15:40 05/13/21 18:40 05/13/21 18:40 05/13/21 15:40 05/13/21 18:40 Oxygen Flow Rate (L/min) 4 Oxygen Delivery Method Nasal Cannula Weight: 52.5 kg Body Mass Index (BMI) 19.9 Intake & Output: Intake and Output for Last 24 Hours 05/11/21 05/12/21 05/13/21 23:59 23:59 23:59 Intake Total 956 / 956 2470 / 2620 150 / 150 Output Total 200 / 200 550 / 550 Balance 756 / 756 1920 / 2070 150 / 150 Lab / Micro Data Result Diagrams: 05/13/21 08:15 05/13/21 08:15 Labs: Laboratory Results - last 24 hr 05/13/21 08:15: WBC 17.3 H, RBC 4.00 L, Hgb 10.9 L, Hct 34.2 L, MCV 85.5, MCH 27.3, MCHC 31.9 L, RDW Std Deviation 57.9 H, RDW Coeff of Vick 18.6 H, Plt Count 231, MPV 9.2, Immature Gran % (Auto) 0.800, Neut % (Auto) 88.8 H, Lymph % (Auto) 2.8 L, [place] % (Auto) 7.4, Eos % (Auto) 0.0, Baso % (Auto) 0.2, Absolute Neuts (auto) 15.4 H, Absolute Lymphs (auto) 0.49 L, Nucleated RBC % 0 05/13/21 08:15: Sodium 134 L, Potassium 3.9, Chloride 104, Carbon Dioxide 27.0, Anion Gap 3 L, BUN 15, Creatinine 0.79, Estim Creat Clear Calc 33.47, Est GFR (MDRD) Af Amer 88, Est GFR (MDRD) Non-Af 73, BUN/Creatinine Ratio 18.9, Glucose 119 H, Calcium 8.4 L, Total Bilirubin 0.60, AST 42 H, ALT 41, Alkaline Phosphatase 68, Total Protein 5.7 L, Albumin 2.3 L, Globulin 3.4, Albumin/Globulin Ratio 0.7 L 05/13/21 14:05: COVID-19 (NA[place]IA) Not Detected Micro: Microbiology 05/11/21 22:20 Wound - Leg, Left Gram Stain - Final 05/11/21 22:20 Wound - Leg, Left Wound Culture - Final Meth. resistant Staph. aureus 05/12/21 00:35 Mucosa - Nasopharyngeal Respiratory Panel (PCR) - Final 05/11/21 16:15 Urine, Random Legionella Antigen - Final 05/11/21 16:15 Urine, Random Streptococcus pneumoniae Antigen (M - Final 05/11/21 19:14 Nasal Secretion SARS-CoV-2 Antigen (Rapid) - Final Radiography Diagnostic Testing: Radiology Impression Chest X-Ray 05/13/21 07:33 IMPRESSION: Progressive right upper lobe and right lower lobe infiltrates. Improved aeration to left lung base. Mild degree of vascular congestion. Electronically Signed: Milton Swartz MD at 8:20 EDT , Service support , Brain CT 05/13/21 10:13 IMPRESSION: Chronic involutional changes of the brain. Electronically Signed: Milton Swartz MD at 11:58 EDT , Service support , Physical Exam Narrative alert Constitutional Narrative: Patient is alert but appears confused, she is not oriented as to time or place. General Appearance: cooperative, well kempt and well developed Orientation / Consciousness: awake, oriented to person, oriented to place and oriented to time HEENT normocephalic, head/scalp atraumatic and moist oral mucous membranes Head and Scalp: normocephalic Eyes PERRL, EOMs intact bilaterally and conjunctivae normal Neck nuchal rigidity, supple, no JVD, thyroid normal and no carotid bruits General: trachea midline Resp normal respiratory effort, no retractions, no use of accessory muscles and clear to auscultation bilaterally Auscultation: Negative for rales, rhonchi or wheezes Cardio regular rate, regular rhythm, S1 normal heart sound, S2 normal heart sound, no rub and no gallops Cardio Narrative: There is a 3/6 systolic murmur noted at the left sternal border and apex GI normal to inspection, nondistended, normoactive bowel sounds, soft to palpation, non-tender and non-distended Extremity Extremity Narrative: Patient's Ramu wraps were not removed for examination of the patient's lower extremities during my exam Skin General Skin Exam: no breakdown Neuro CN's II-XII intact bilaterally, no focal motor deficits and no sensory deficits noted Neuro Narrative: Patient is alert but confused Sensorium / Orientation: awake and alert Speech: speech normal Psych thought process normal Psych Narrative: Patient is alert but confused Assessment & Plan Assessment/Plan (1) Encephalopathy: PLAN: 1. Acute hypoxic respiratory failure-secondary to community- acquired pneumonia and/or atelectasis, continue aerosol treatments, continue Rocephin #2 community-acquired pneumonia #3 Alzheimer's dementia #4 chronic lymphedema of the lower extremities #5 metabolic encephalopathy on a backdrop of Alzheimer's dementia Infectious diseases does not feel the patient has cellulitis. Charges/Coding Visit Charges Inpatient E&M: 21196 Subs Hosp L2
--- NOTE | 2021-05-13 22:14 | PCM.HOSP.N ---
Hospitalist Note Patient with increase oxygen requirement, most recent CXR worsened with definite infiltrates, ID following and currently on rocephin. Speech evaluation performed with some alteration to diet. May need to consider broadened coverage. More confused also. Will administer lasix pulse dose and will also obtain ABG.
[2021-05-13 22:45] LABS: Allen Test Positive; Base Excess 3 mmol/L (-2 to +2); Bicarbonate 26.3 mmol/L (22-26); Blood Gas Specimen Type ART; O2 Delivery Device Cannula; PO2 66 mmHG (75-100); SITE R Radial; SO2 94 % (95-99); Total Carbon Dioxide 28 mmol/L; pCO2 36.9 mmHg (35-45); pH 7.46 (7.35-7.45)
[2021-05-13] MEDS: Furosemide 40 MG/4 ML Vial IV (22:47)
[2021-05-13] MEDS: 0.9% Saline Lock 10 ML Syringe IV (22:48)
[2021-05-13] MEDS: Ceftriaxone 1 GM/50 ML BAG IV (22:48)
[2021-05-13] MEDS: Lisinopril 10 MG Tablet PO (23:02)
[2021-05-14] VITALS (8 sets, daily range): BP systolic 123–162; BP diastolic 48–96; PULSE 77–89; RESP 18–36; TEMP 36.5–37.6; O2SAT 94–96
--- NOTE | 2021-05-14 02:59 | NURSING ---
Pandemic emerency charting in effect.
[2021-05-14] MEDS: Acetaminophen 325 MG Tablet 650 MG PO (03:15)
[2021-05-14] MEDS: Albuterol 2.5 MG/3 ML VIAL.NEB. INHALATION ×4 (04:48→19:50)
[2021-05-14] MEDS: Furosemide 40 MG/4 ML Vial IV (06:19)
[2021-05-14] MEDS: 0.9% Saline Lock 10 ML Syringe IV ×4 (06:20→23:03)
--- NOTE | 2021-05-14 06:40 | NURSING ---
Throughout shift, daughters were updated as well as several updates to physician about change in oxygen needs and possible aspiration on water. New orders were given and followed.
[2021-05-14 10:38] LABS: BNP,B-Type NATRIURETIC PEPTIDE 858.9 pg/mL (0-100)
[2021-05-14 10:52] LABS: D-Dimer Quantitative (DVT/PE) 2.81 FEU/ug/m (0.27-0.49)
--- NOTE | 2021-05-14 12:00 | CT_ITS ---
STUDY: CTA CHEST REASON FOR EXAM: Female, 86 years old. Hypoxic, Increased D-dimer -- rule out PE RADIATION DOSAGE (If Supplied By Facility): CTDIvol = ( 6.84 ) mGy, DLP = ( 249.89 ) mGycm TECHNIQUE: The examination was performed with the intravenous administration of IV 100mL [id number]-370. Post-processing of the angiographic images was performed, with multiplanar reformation and 3D reconstruction. Individualized dose optimization techniques were used for this CT. COMPARISON: Comparison is made with prior chest radiograph dated 05/13/2021. FINDINGS: Normal enhancement of the main pulmonary artery and right and left pulmonary arteries. Normal enhancement of the bilateral peripheral pulmonary arteries. There is no demonstrated pulmonary embolism. There is atherosclerotic calcification of the aortic arch with tortuosity. There is no demonstrated aortic dissection. Sternal cerclage wires are present from a prior sternotomy. The patient is status post aortic valve replacement. There is calcification of the mitral valve annulus. Coronary artery calcification. Enlargement of the left atrium. Normal mediastinum. Normal hilar regions. Normal visualized trachea and bronchi. The lungs are well expanded. There is diffuse bilateral airspace disease. Differential diagnosis should include either diffuse bilateral pneumonia versus pulmonary edema. Small bilateral pleural effusions. Normal chest wall structures. There are degenerative changes of thoracic spine. Increased kyphosis. There is evidence of a multiple prior vertebral plasty of the lower thoracic and upper lumbar vertebrae. Normal visualized upper abdomen. CT/CTA Chest W/WO Contrast IMPRESSION: Small bilateral pleural effusions with diffuse bilateral airspace disease suggestive of either diffuse bilateral pneumonia versus pulmonary edema. Electronically Signed: Milton Swartz MD at 12:33 EDT , Service support ,
[2021-05-14] MEDS: Furosemide 20 MG/2 ML VIAL IV ×2 (12:21→22:35)
[2021-05-14] MEDS: Heparin Injection (Vial) 5,000 UNIT/ML VIAL 5000 UNIT SC ×2 (12:23→22:39)
--- NOTE | 2021-05-14 12:55 | CPS ---
Patient very confused does not leave nonrebreather mask or aerosal on. Patient unable to tolerate bipap.
--- NOTE | 2021-05-14 14:13 | PCM.PN.ID ---
Physical Exam Narrative Much worsened O2 and mental status Const Orientation / Consciousness: lethargic Resp Auscultation: rales and diminished lung sounds Cardio regular rate and regular rhythm GI normal to inspection, nondistended, normoactive bowel sounds Skin no rashes or lesions noted ID ID: Route of nutrition/ use of supplements: [] Nutritional Intake: [] IV Site: [] Garcia Catheter: [] Assessment & Plan Assessment/Plan (1) Noninfected skin tear of left lower extremity: QUALIFIERS: Encounter type: initial encounter Qualified Code(s): S81.812A - Laceration without foreign body, left lower leg, initial encounter (2) Encephalopathy: PLAN: Hypoxia, lymphopenia, encephalopathy, neg covid pcr. Is vaccinated. UAg neg. On ceftriaxone, much worse O2 today. CTA showed no PE, agree with broadening to zosyn. Recommend pulm eval if she does not improve with diuresis. Will follow
--- NOTE | 2021-05-14 19:20 | PN.HOSP_ITS ---
Subjective Subjective Patient was seen and examined today, I talked with her daughter who was in the room at the time of my examination. Patient is currently on a nonrebreather, I had a CTA of the chest performed on the patient today to exclude pulmonary emboli, there does not seem to be any pulmonary emboli but the patient does have infiltrates that indicate either pneumonia or vascular congestion, patient's beta natruretic peptide was elevated and I decided to place the patient on IV Lasix. Patient's overall medical condition is poor at this time, she is a DNR CC arrest no intubation. Objective Data Objective Data Vital Signs: Vital Signs Temp Pulse Resp BP Pulse Ox 99.7 F H 89 18 150/96 H 94 05/14/21 15:30 05/14/21 15:30 05/14/21 15:30 05/14/21 15:30 05/14/21 15:30 Oxygen Flow Rate (L/min) 94 Oxygen Delivery Method Non-Rebreather Weight: 52.798 kg Body Mass Index (BMI) 19.9 Intake & Output: Intake and Output for Last 24 Hours 05/12/21 05/13/21 05/14/21 23:59 23:59 23:59 Intake Total 2470 / 2620 150 / 150 175.75 / 175.75 Output Total 550 / 550 800 / 800 Balance 1920 / 2070 150 / 150 -624.25 / -624.25 Lab / Micro Data Result Diagrams: 05/13/21 08:15 05/13/21 08:15 Labs: Laboratory Results - last 24 hr 05/14/21 09:57: D-Dimer Quant (PE/DVT) 2.81 H* 05/14/21 09:57: B-Natriuretic Peptide 858.9 H Micro: Microbiology 05/11/21 22:20 Wound - Leg, Left Gram Stain - Final 05/11/21 22:20 Wound - Leg, Left Wound Culture - Final Meth. resistant Staph. aureus 05/12/21 00:35 Mucosa - Nasopharyngeal Respiratory Panel (PCR) - Final 05/11/21 16:15 Urine, Random Legionella Antigen - Final 05/11/21 16:15 Urine, Random Streptococcus pneumoniae Antigen (M - Final 05/11/21 19:14 Nasal Secretion SARS-CoV-2 Antigen (Rapid) - Final ABG Data ABG results: ABG 05/13/21 22:42 Specimen Type ART Sample Site R Radial pH 7.46 H Bicarbonate Actual 26.3 H Total CO2 28 Base Excess 3 H O2 Saturation 94 L ABG pCO2 36.9 ABG pO2 66 L Han Test Positive O2 Delivery Device Cannula Liter Flow 6.0 Radiography Diagnostic Testing: Radiology Impression Chest CTA 05/14/21 12:00 IMPRESSION: Small bilateral pleural effusions with diffuse bilateral airspace disease suggestive of either diffuse bilateral pneumonia versus pulmonary edema. Electronically Signed: Milton Swartz MD at 12:33 EDT , Service support , Physical Exam Const alert Constitutional Narrative: Patient is alert but confused General Appearance: cooperative, well kempt and well developed Orientation / Consciousness: awake, oriented to person, oriented to place and oriented to time HEENT normocephalic, head/scalp atraumatic and moist oral mucous membranes Head and Scalp: normocephalic Eyes PERRL, EOMs intact bilaterally and conjunctivae normal Neck nuchal rigidity, supple, no JVD, thyroid normal and no carotid bruits General: trachea midline Resp no retractions and no use of accessory muscles Resp Narrative: Decreased breath sounds are noted bilaterally Auscultation: Negative for rales, rhonchi or wheezes Cardio regular rate, regular rhythm, no rub and no gallops Cardio Narrative: There is a 3/6 systolic murmur noted at the left sternal border and apex GI normal to inspection, nondistended, normoactive bowel sounds, soft to palpation, non-tender and non-distended Extremity normal to inspection and no clubbing, cyanosis or edema Skin no rashes or lesions noted General Skin Exam: no breakdown Neuro CN's II-XII intact bilaterally, no focal motor deficits and no sensory deficits noted Sensorium / Orientation: awake Psych thought process normal Psych Narrative: Patient is alert but confused Assessment & Plan Assessment/Plan (1) Encephalopathy: PLAN: 1. Acute hypoxic respiratory failure-secondary to community- acquired pneumonia, congestive heart failure, and atelectasis-continue IV Lasix, aerosol treatments, IV Rocephin-prognosis guarded at this time, patient is a DNR CC arrest no intubation. #2 community-acquired pneumonia #3 Alzheimer's dementia #4 chronic lymphedema of the lower extremities #5 metabolic encephalopathy on a backdrop of Alzheimer's dementia #6 acute congestive heart failure Infectious diseases does not feel the patient has cellulitis. Charges/Coding Visit Charges Inpatient E&M: 21244 Subs Hosp L2
[2021-05-14] MEDS: LORazepam 2 MG/ML Syringe 0.5 MG IV (23:01)
[2021-05-15] VITALS (15 sets, daily range): BP systolic 126–183; BP diastolic 54–73; PULSE 75–96; RESP 12–36; TEMP 36.1–37.3; O2SAT 90–98
[2021-05-15] MEDS: Furosemide 20 MG/2 ML VIAL IV (06:15)
[2021-05-15] MEDS: 0.9% Saline Lock 10 ML Syringe IV ×2 (06:16→06:34)
[2021-05-15 06:24] LABS: Absolute Lymphocyte Count 0.39 X10^3/uL (0.83-4.51); Absolute Neutrophil Count 16.3 X10^3/uL (2.0-7.7); Basophil# 0.05 X10^3/uL; Basophil% 0.3 % (0-1); Eosinophil# 0.01 X10^3/uL; Eosinophils% 0.1 % (0-5); Hematocrit 35.1 % (37-47); Hemoglobin 10.8 g/dL (12.0-15.0); Lymphocyte # 0.39 X10^3/ul (0.83-4.51); Lymphocyte % 2.1 % (19-41); Mean Corp Hgb Conc 30.8 g/dL (32-36); Mean Corpuscular Hgb 27.1 pg (27.0-32.0); Mean Platelet Vol. 9.4 fl (6.2-12.0); Monocyte# 1.33 X10^3/uL; Monocyte% 7.3 % (0-10); NRBC Flagged by Analyzer 0 % (0-5); Neutrophil # 16.29 X10^3/uL (2.7-7.7); Neutrophil % 89.2 % (47-70); POSITIVE DIFFERENTIAL YES; Platelet Count 255 K/mm3 (150-450); RBC Distribution Width CV 18.6 % (11.6-14.6); RBC Distribution Width SD 60.3 fl (35.1-43.9); Red Blood Count 3.99 M/mm3 (4.2-5.4); White Blood Count 18.3 K/mm3 (4.4-11.0)
[2021-05-15] MEDS: hydrALAZINE 20 MG/ML Vial 10 MG IV (06:35)
[2021-05-15] MEDS: Menthol/Lanolin/Calamine/Znox 113 GM Tube 1 APPLIC TOPICAL ×3 (06:39→21:42)
[2021-05-15 06:45] LABS: Differential Indicated SCAN CRITERIA MET
[2021-05-15 06:50] LABS: Anion Gap 9 (5-15); BUN 27 mg/dL (7-18); BUN/Creat Ratio 26.7 RATIO (10-20); Calcium,Total 8.7 mg/dL (8.5-10.1); Chloride 108 mmol/L (98-107); Creatinine, Serum 1.01 mg/dL (0.55-1.02); EST Glomerular Filtration Rate 55 mL/min (>60); Est Glom Filt Rate - Afr Amer 67 mL/min (>60); Estimated Creatinine Clearance 31.18 ml/min; Glucose 100 mg/dL (74-106); Potassium 3.2 mmol/L (3.5-5.1); Sodium Level 145 mmol/L (136-145)
[2021-05-15] MEDS: Albuterol 2.5 MG/3 ML VIAL.NEB. INHALATION ×3 (07:12→19:39)
[2021-05-15 07:16] LABS: Differential Comment SCANNED
--- NOTE | 2021-05-15 08:19 | RAD_ITS ---
STUDY: X-RAY CHEST REASON FOR EXAM: Female, 86 years old. HYPOXIA TECHNIQUE: Single AP portable view of the chest. COMPARISON: 05/13/2021 FINDINGS: Lungs are expanded with diffuse airspace opacifications in both lung armstrong which have worsened since the previous study. No demonstrated effusions. Sternal cerclage wires and vascular clips are present from a prior sternotomy and coronary artery bypass graft procedure (CABG). Normal mediastinum and karin. Normal visualized pulmonary arteries. There is atherosclerotic calcification of the aortic arch with tortuosity. There are diffuse degenerative changes of the visualized thoracic spine. 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 RAD/Chest 1 View (Portable) IMPRESSION: Worsening of airspace opacifications in both lung armstrong since the previous study. No demonstrated effusions Remote CABG Extensive degenerative bony changes Electronically Signed: Brody Das MD at 9:33 EDT , Service support ,
[2021-05-15] MEDS: Heparin Injection (Vial) 5,000 UNIT/ML VIAL 5000 UNIT SC ×2 (09:26→21:38)
[2021-05-15] MEDS: Furosemide 20 MG/2 ML VIAL 40 MG IV ×2 (13:46→21:38)
--- NOTE | 2021-05-15 14:52 | PCM.RX.CS ---
Consult Pharmacy has been consulted to manage selected antiobiotic: Vancomycin Type of Consult: New start Suspected Infection: Pneumonia Prior Doses of Antibiotics Received/Current Regimen: Received 750mg iv x 1 as initial dose. Labs: Sodium 145 mmol/L (136-145) 05/15/21 05:35 Potassium 3.2 mmol/L (3.5-5.1) L 05/15/21 05:35 Chloride 108 mmol/L (98-107) H 05/15/21 05:35 Carbon Dioxide 28.0 mmol/L (21.0-32.0) 05/15/21 05:35 Anion Gap 9 (5-15) 05/15/21 05:35 BUN 27 mg/dL (7-18) H 05/15/21 05:35 Creatinine 1.01 mg/dL (0.55-1.02) 05/15/21 05:35 Est GFR (MDRD) Af Amer 67 mL/min (>60) 05/15/21 05:35 Est GFR (MDRD) Non-Af 55 mL/min (>60) L 05/15/21 05:35 BUN/Creatinine Ratio 26.7 RATIO (10-20) H 05/15/21 05:35 Glucose 100 mg/dL (74-106) 05/15/21 05:35 Microbiology: Microbiology 05/11/21 22:20 Wound - Leg, Left Gram Stain - Final 05/11/21 22:20 Wound - Leg, Left Wound Culture - Final Meth. resistant Staph. aureus 05/12/21 00:35 Mucosa - Nasopharyngeal Respiratory Panel (PCR) - Final 05/11/21 16:15 Urine, Random Legionella Antigen - Final 05/11/21 16:15 Urine, Random Streptococcus pneumoniae Antigen (M - Final 05/11/21 19:14 Nasal Secretion SARS-CoV-2 Antigen (Rapid) - Final Weight used for dosin.4 kg Estimated Creatinine Clearance: 31 ml/min Goal Trough: 15-20 mcg/mL Pharmacy Plan for Drug Dosing: Will begin 750mg iv q24h. Trough level ordered for 05.17.21 before 3rd dose. Pharmacy Service will continue to monitor and adjust dosing as required. Follow-Up Labs: Trough Vancomycin - 05.17.21 @1130 before 1200 dose
--- NOTE | 2021-05-15 15:28 | PN.HOSP_ITS ---
Subjective Subjective Patient was seen and examined today, she is presently on BiPAP at 50% oxygen, I talked at length with both of her daughters to or in the room at the time of my examination, the daughters expressed to nursing that they were concerned that the wrapping of the patient's legs would cause the patient to go into heart fa ilure, the nurse unwrapped the patient's legs which I am fine with presently. I explained to the daughters that I am treating the patient for both pneumonia and suspected congestive heart failure, I explained that the patient does not have documentation of a PE and has no documentation for COVID-19 pneumonia. Daughter seemed understand this. Daughters interjected that they did not want the dustin ent intubated if she would fail BiPAP. Objective Data Objective Data Vital Signs: Vital Signs Temp Pulse Resp BP Pulse Ox 98.7 F 86 28 H 145/54 H 95 05/15/21 14:01 05/15/21 14:01 05/15/21 14:01 05/15/21 14:01 05/15/21 14:01 Oxygen Flow Rate (L/min) 94 Oxygen Delivery Method Bi-pap Weight: 49.4 kg Body Mass Index (BMI) 19.9 Intake & Output: Intake and Output for Last 24 Hours 05/13/21 05/14/21 05/15/21 23:59 23:59 23:59 Intake Total 150 / 150 175.75 / 175.75 240.5 / 240.5 Output Total 800 / 1250 750 / 750 Balance 150 / 150 -624.25 / -1074.25 -509.5 / -509.5 Lab / Micro Data Result Diagrams: 05/15/21 05:35 05/15/21 05:35 Labs: Laboratory Results - last 24 hr 05/15/21 05:35: WBC 18.3 H, RBC 3.99 L, Hgb 10.8 L, Hct 35.1 L, MCV 88.0, MCH 27.1, MCHC 30.8 L, RDW Std Deviation 60.3 H, RDW Coeff of Vick 18.6 H, Plt Count 255, MPV 9.4, Immature Gran % (Auto) 1.000 H, Neut % (Auto) 89.2 H, Lymph % (Auto) 2.1 L, [place] % (Auto) 7.3, Eos % (Auto) 0.1, Baso % (Auto) 0.3, Absolute Neuts (auto) 16.3 H, Absolute Lymphs (auto) 0.39 L, Nucleated RBC % 0, Differential Comment SCANNED 05/15/21 05:35: Sodium 145, Potassium 3.2 L, Chloride 108 H, Carbon Dioxide 28.0, Anion Gap 9, BUN 27 H, Creatinine 1.01, Estim Creat Clear Calc 31.18, Est GFR (MDRD) Af Amer 67, Est GFR (MDRD) Non-Af 55 L, BUN/Creatinine Ratio 26.7 H, Glucose 100, Calcium 8.7 Micro: Microbiology 05/11/21 22:20 Wound - Leg, Left Gram Stain - Final 05/11/21 22:20 Wound - Leg, Left Wound Culture - Final Meth. resistant Staph. aureus 05/12/21 00:35 Mucosa - Nasopharyngeal Respiratory Panel (PCR) - Final 05/11/21 16:15 Urine, Random Legionella Antigen - Final 05/11/21 16:15 Urine, Random Streptococcus pneumoniae Antigen (M - Final 05/11/21 19:14 Nasal Secretion SARS-CoV-2 Antigen (Rapid) - Final Radiography Diagnostic Testing: Radiology Impression Chest X-Ray 05/15/21 08:19 IMPRESSION: Worsening of airspace opacifications in both lung armstrong since the previous study. No demonstrated effusions Remote CABG Extensive degenerative bony changes Electronically Signed: Brody Das MD at 9:33 EDT , Service support , Physical Exam Const alert Constitutional Narrative: Patient is currently on BiPAP, she does not appear to be dyspneic to this examiner General Appearance: cooperative, well kempt and well developed Orientation / Consciousness: awake, oriented to person, oriented to place and oriented to time HEENT normocephalic and moist oral mucous membranes Head and Scalp: normocephalic Eyes PERRL, EOMs intact bilaterally and conjunctivae normal Neck nuchal rigidity, supple, no JVD, thyroid normal and no carotid bruits General: trachea midline Resp normal respiratory effort, no retractions and no use of accessory muscles Auscultation: Negative for rales, rhonchi or wheezes Cardio regular rate, regular rhythm, S1 normal heart sound, S2 normal heart sound, no murmurs, no rub and no gallops GI normal to inspection, nondistended, normoactive bowel sounds, soft to palpation, non-tender and non-distended Extremity Extremity Narrative: Patient has chronic lymphedematous changes to both legs Skin General Skin Exam: no breakdown Neuro CN's II-XII intact bilaterally, no focal motor deficits and no sensory deficits noted Sensorium / Orientation: awake and alert Speech: speech normal Psych thought process normal and affect normal Assessment & Plan Assessment/Plan (1) Lymphedema of right lower extremity: (2) Encephalopathy: PLAN: 1. Acute hypoxic respiratory failure-secondary to community-acqu ired pneumonia, congestive heart failure, and atelectasis-continue IV Lasix, aerosol treatments, IV Zosyn and vancomycin-prognosis guarded at this time, patient is a DNR CC arrest no intubation. #2 community-acquired pneumonia-I have decided to add IV vancomycin to the patient's medications, she will remain on Zosyn at this time #3 metabolic encephalopathy #4 chronic lymphedema of the lower extremities #5 acute congestive heart failure, diastolic in nature-patient's daughter today states that the patient had a normal ejection fraction on her echocardiogram which was done earlier this year in [place]. I have decided today to increase the patient's Lasix to 40 mg every 8 hours, labs will be obtained in the morning. Infectious diseases does not feel the patient has cellulitis. Charges/Coding Visit Charges Inpatient E&M: 03471 Subs Hosp L2
--- NOTE | 2021-05-15 19:53 | NURSING ---
At approximately 1500 today, daughters were out to lunch and Evy called in and said that she and her sister remembered that a Lymphedema doctor in [place] told us not to ever put wraps on mom's legs it will cause her fluid to go into her heart. Dr. Carbajal is aware that daughters are refusing the georgina wraps for their mother. They stated to this nurse several times Do not put those on. Both daughters were very anxoius about having them on the patient so much that Evy, her one daughter wrote on her white board in the patients room Do Not put wraps on.
[2021-05-16] VITALS (14 sets, daily range): BP systolic 142–197; BP diastolic 47–86; PULSE 75–97; RESP 12–30; TEMP 36.2–36.9; O2SAT 93–95
[2021-05-16] MEDS: Furosemide 20 MG/2 ML VIAL 40 MG IV (05:17)
[2021-05-16] MEDS: Menthol/Lanolin/Calamine/Znox 113 GM Tube 1 APPLIC TOPICAL ×3 (05:18→20:46)
[2021-05-16 06:51] LABS: Absolute Lymphocyte Count 0.42 X10^3/uL (0.83-4.51); Absolute Neutrophil Count 11.6 X10^3/uL (2.0-7.7); Basophil# 0.04 X10^3/uL; Basophil% 0.3 % (0-1); Eosinophil# 0.09 X10^3/uL; Eosinophils% 0.7 % (0-5); Hematocrit 32.8 % (37-47); Hemoglobin 10.3 g/dL (12.0-15.0); Lymphocyte # 0.42 X10^3/ul (0.83-4.51); Lymphocyte % 3.2 % (19-41); Mean Corp Hgb Conc 31.4 g/dL (32-36); Mean Corpuscular Hgb 27.5 pg (27.0-32.0); Mean Corpuscular Volume 87.7 fL (81-99); Monocyte# 0.76 X10^3/uL; Monocyte% 5.8 % (0-10); NRBC Flagged by Analyzer 0 % (0-5); Neutrophil # 11.62 X10^3/uL (2.7-7.7); Neutrophil % 89.2 % (47-70); POSITIVE DIFFERENTIAL YES; Platelet Count 255 K/mm3 (150-450); RBC Distribution Width CV 18.6 % (11.6-14.6); RBC Distribution Width SD 59.7 fl (35.1-43.9); Red Blood Count 3.74 M/mm3 (4.2-5.4)
[2021-05-16 07:04] LABS: Differential Indicated SCAN CRITERIA MET
[2021-05-16 07:19] LABS: Hypochromasia 1+
[2021-05-16 07:30] LABS: Anion Gap 12 (5-15); BUN 43 mg/dL (7-18); BUN/Creat Ratio 37.7 RATIO (10-20); Calcium,Total 8.8 mg/dL (8.5-10.1); Chloride 110 mmol/L (98-107); Creatinine, Serum 1.14 mg/dL (0.55-1.02); EST Glomerular Filtration Rate 48 mL/min (>60); Est Glom Filt Rate - Afr Amer 58 mL/min (>60); Estimated Creatinine Clearance 27.46 ml/min; Glucose 104 mg/dL (74-106); Potassium 2.5 mmol/L (3.5-5.1); Sodium Level 151 mmol/L (136-145)
[2021-05-16] MEDS: Albuterol 2.5 MG/3 ML VIAL.NEB. INHALATION ×3 (07:45→20:15)
[2021-05-16] MEDS: Heparin Injection (Vial) 5,000 UNIT/ML VIAL 5000 UNIT SC ×2 (10:58→21:12)
[2021-05-16] MEDS: Furosemide 40 MG/4 ML Vial IV ×2 (10:58→21:09)
[2021-05-16] MEDS: hydrALAZINE 20 MG/ML Vial 10 MG IV ×2 (13:45→20:44)
[2021-05-16] MEDS: Potassium Chloride 10mEq/100mL 10 MEQ/100 ML IV.SOLN. 100 MEQ IV BOLUS ×3 (15:29→18:36)
[2021-05-16] MEDS: traMADol 50 MG Tablet 100 MG PO (16:52)
--- NOTE | 2021-05-16 17:08 | PN.HOSP_ITS ---
Subjective Subjective Patient was seen and examined today, her potassium this morning was low at 2.5, sodium was elevated at 151, and chloride was 110. Her creatinine is also slightly elevated at 1.14-I have made a decision to cut back on her Lasix today. Patient is currently on nasal cannula at 10 L/min. Patient's white blood cell count has decreased today. Objective Data Objective Data Vital Signs: Vital Signs Temp Pulse Resp BP Pulse Ox 97.8 F 93 28 H 187/74 H 95 05/16/21 03:34 05/16/21 14:26 05/16/21 08:00 05/16/21 15:00 05/16/21 07:45 Oxygen Flow Rate (L/min) 10 Oxygen Delivery Method Nasal Cannula Weight: 49.1 kg Body Mass Index (BMI) 19.9 Intake & Output: Intake and Output for Last 24 Hours 05/14/21 05/15/21 05/16/21 23:59 23:59 23:59 Intake Total 175.75 / 175.75 610.25 / 610.25 502.83 / 502.83 Output Total 800 / 1250 1550 / 1850 1650 / 1650 Balance -624.25 / -1074.25 -939.75 / -1239.75 -1147.17 / -1147.17 Lab / Micro Data Result Diagrams: 05/16/21 06:25 05/16/21 06:25 Labs: Laboratory Results - last 24 hr 05/16/21 06:25: WBC 13.0 H, RBC 3.74 L, Hgb 10.3 L, Hct 32.8 L, MCV 87.7, MCH 27.5, MCHC 31.4 L, RDW Std Deviation 59.7 H, RDW Coeff of Vick 18.6 H, Plt Count 255, MPV 9.0, Immature Gran % (Auto) 0.800, Neut % (Auto) 89.2 H, Lymph % (Auto) 3.2 L, [place] % (Auto) 5.8, Eos % (Auto) 0.7, Baso % (Auto) 0.3, Absolute Neuts (auto) 11.6 H, Absolute Lymphs (auto) 0.42 L, Nucleated RBC % 0, Hypochromasia 1+ 05/16/21 06:25: Sodium 151 H, Potassium 2.5 L*, Chloride 110 H, Carbon Dioxide 29.0, Anion Gap 12, BUN 43 H, Creatinine 1.14 H, Estim Creat Clear Calc 27.46, Est GFR (MDRD) Af Amer 58 L, Est GFR (MDRD) Non-Af 48 L, BUN/Creatinine Ratio 37.7 H, Glucose 104, Calcium 8.8 Micro: Microbiology 05/11/21 22:20 Wound - Leg, Left Gram Stain - Final 05/11/21 22:20 Wound - Leg, Left Wound Culture - Final Meth. resistant Staph. aureus 05/12/21 00:35 Mucosa - Nasopharyngeal Respiratory Panel (PCR) - Final 05/11/21 16:15 Urine, Random Legionella Antigen - Final 05/11/21 16:15 Urine, Random Streptococcus pneumoniae Antigen (M - Final 05/11/21 19:14 Nasal Secretion SARS-CoV-2 Antigen (Rapid) - Final Physical Exam Const no apparent distress Constitutional Narrative: Patient is frail and appears older than her stated age and is lethargic General Appearance: cooperative, well kempt and well developed Orientation / Consciousness: awake, oriented to person, oriented to place, oriented to time and lethargic HEENT normocephalic, head/scalp atraumatic and moist oral mucous membranes Head and Scalp: normocephalic Eyes PERRL, EOMs intact bilaterally and conjunctivae normal Neck nuchal rigidity, supple, no JVD, thyroid normal and no carotid bruits General: trachea midline Resp normal respiratory effort, no retractions, no use of accessory muscles and clear to auscultation bilaterally Auscultation: Negative for rales, rhonchi or wheezes Cardio regular rate, regular rhythm, S1 normal heart sound, S2 normal heart sound, no rub and no gallops Cardio Narrative: There is a 3/6 systolic murmur noted at the apex and left sternal border GI normal to inspection, nondistended, normoactive bowel sounds, soft to palpation, non-tender and non-distended Extremity no clubbing, cyanosis or edema Extremity Narrative: Chronic lymphedematous changes are noted over both lower extremities Skin Skin Narrative: Chronic lymphedematous changes with redness is noted over both lower extremities General Skin Exam: no breakdown Neuro CN's II-XII intact bilaterally, no focal motor deficits and no sensory deficits noted Neuro Narrative: Patient is lethargic, she responds to verbal and painful stimuli Speech: speech normal Psych thought process normal and affect normal Assessment & Plan Assessment/Plan (1) Encephalopathy: (2) Lymphedema of right lower extremity: PLAN: 1. Acute hypoxic respiratory failure-secondary to community- acquired pneumonia, congestive heart failure, and atelectasis-continue IV Lasix- I have reduced the dosage to 40 mg IV every 12 hours, this may need to be further adjusted tomorrow based on her lab values, I will repeat a BMP in the morning.Continue aerosol treatments, IV Zosyn and vancomycin-prognosis guarded at this time, patient is a DNR CC arrest no intubation. #2 community-acquired pneumonia-patient is on Zosyn and vancomycin, infectious diseases is seeing patient #3 metabolic encephalopathy #4 chronic lymphedema of the lower extremities #5 acute congestive heart failure, diastolic in nature-patient's daughter today states that the patient had a normal ejection fraction on her echocardiogram which was done earlier this year in [place]. I have decided today to increase the patient's Lasix to 40 mg every 8 hours, labs will be obtained in the [facility]. I have decided to order an echocardiogram to assess any change in the patient's left ventricular function. Infectious diseases does not feel the patient has cellulitis. Charges/Coding Visit Charges Inpatient E&M: 07897 Subs Hosp L2
[2021-05-17] VITALS (13 sets, daily range): BP systolic 149–158; BP diastolic 43–68; PULSE 79–98; RESP 12–25; TEMP 36.4–36.6; O2SAT 91–97
--- NOTE | 2021-05-17 05:55 | ECHOD_ITS ---
Reason For Study: CHF Procedure This was a 2D Doppler, Color Flow transthoracic echocardiogram. Exam performed portable in patient room. Left Ventricle Normal LV size. Moderate eccentric left ventricular hypertrophy. Left ventricular systolic function is normal. The estimated ejection fraction is 60 %. Stage 1 diastolic dysfunction. No regional wall motion abnormalities noted. Right Ventricle Normal RV size. Normal systolic function. Atria The left atrium is severely enlarged. Normal right atrium. Mitral Valve There is mild to moderate mitral annular calcification. Moderate (2+) eccentric mitral valve insufficiency. Tricuspid Valve Normal tricuspid valve. Mild to moderate (1-2+) tricuspid valve insufficiency. Pulmonary artery systolic pressure is 44 mmHg. Aortic Valve Peak aortic valve gradient 53 mmHg. Mean aortic valve gradient 26 mmHg. Moderate aortic stenosis. Bioprosthetic aortic valve. Pulmonic Valve Normal pulmonic valve. Great Vessels Normal aortic root. The pulmonary artery is normal size. Normal inferior vena cava. Pericardium/Pleural No pericardial effusion. MMode/2D Measurements & Calculations LVIDd: 4.3 cm IVSd: 1.7 cm LVOT diam: 1.9 cm LVIDs: 2.7 cm LVPWd: 1.2 cm LVOT area: 2.9 cm2 RVDd: 3.7 cm FS: 38.2 % LAV(MOD-bp): 101.4 ml LVAd ap4: 29.2 cm2 SV(MOD-sp4): 53.5 ml LAV(MOD-bp) Indexed: 67.3 ml/m2 LVLd ap4: 7.3 cm LAV(MOD-sp2): 91.5 ml EDV(MOD-sp4): 95.0 ml LAV(MOD-sp4): 111.7 ml EDV(sp4-el): 99.6 ml LVAs ap4: 16.9 cm2 LVLs ap4: 6.1 cm ESV(MOD-sp4): 41.6 ml ESV(sp4-el): 40.0 ml EF(MOD-sp4): 56.3 % EF(sp4-el): 59.8 % SV(sp4-el): 59.6 ml LA A4 area: 30.3 cm2 LA dimension(2D): 4.4 cm RA A4 area: 14.6 cm2 Doppler Measurements & Calculations MV E max rah: 96.0 cm/sec Lat Peak E' Rah: 9.7 cm/sec Med Peak E' Rah: 3.5 cm/sec MV A max rah: 118.1 cm/sec E/E' lat: 9.8 E/E' med: 27.0 MV E/A: 0.81 Ao V2 max: 365.1 cm/sec LV V1 max: 157.8 cm/sec SV(LVOT): 98.4 ml Ao max P.3 mmHg LV V1 max P.0 mmHg Ao V2 mean: 240.8 cm/sec LV V1 mean P.9 mmHg Ao mean P.6 mmHg LV V1 mean: 104.2 cm/sec Ao V2 VTI: 74.4 cm LV V1 VTI: 33.9 cm LISSA(I,D): 1.3 cm2 LISSA(V,D): 1.3 cm2 PA V2 max: 100.2 cm/sec TR max rah: 313.5 cm/sec TR max P.3 mmHg ECHO/Echo Complete Interpretation Summary Bioprosthetic aortic valve. Mean aortic valve gradient 26 mmHg. Moderate aortic stenosis. Normal LV size. Moderate eccentric left ventricular hypertrophy. Left ventricular systolic function is normal. The estimated ejection fraction is 60 %. Stage 1 diastolic dysfunction. Moderate (2+) eccentric mitral valve insufficiency. Ordering Physician: Kurt Carbajal Performed By: Lindsey Varghese RDCS, RVT
[2021-05-17] MEDS: Menthol/Lanolin/Calamine/Znox 113 GM Tube 1 APPLIC TOPICAL ×3 (06:20→22:44)
[2021-05-17] MEDS: Albuterol 2.5 MG/3 ML VIAL.NEB. INHALATION ×2 (07:00→13:30)
[2021-05-17 08:06] LABS: Anion Gap 8 (5-15); BUN 51 mg/dL (7-18); BUN/Creat Ratio 48.1 RATIO (10-20); Calcium,Total 9.4 mg/dL (8.5-10.1); Chloride 117 mmol/L (98-107); Creatinine, Serum 1.06 mg/dL (0.55-1.02); EST Glomerular Filtration Rate 52 mL/min (>60); Est Glom Filt Rate - Afr Amer 63 mL/min (>60); Estimated Creatinine Clearance 29.29 ml/min; Glucose 128 mg/dL (74-106); Potassium 2.4 mmol/L (3.5-5.1); Sodium Level 158 mmol/L (136-145)
[2021-05-17 09:10] LABS: Magnesium 2.6 mg/dL (1.6-2.6); Phosphorus 3.1 mg/dL (2.5-4.9)
[2021-05-17] MEDS: Potassium Chloride 10mEq/100mL 10 MEQ/100 ML IV.SOLN. 100 MEQ IV BOLUS ×6 (09:10→15:44)
[2021-05-17] MEDS: Furosemide 40 MG/4 ML Vial IV (09:58)
[2021-05-17] MEDS: Heparin Injection (Vial) 5,000 UNIT/ML VIAL 5000 UNIT SC ×2 (09:58→22:45)
--- NOTE | 2021-05-17 10:01 | CASEMGMT ---
As per PT/OT, pt is needing a maximum assist of 2 at present. ART called daughter Irasema, message left to call ART. JOSE JUAN Celaya
--- NOTE | 2021-05-17 10:33 | CASEMGMT ---
SW spoke w/daughter Irasema on the phone in regard to discharge plan. SW explained that pt has needed the assist of 2 people w/therapy, is wondering if family would want to consider senior care for rehab. Daughter states they were looking into hiring someone to be w/pt while she is at work. SW again explained that pt is needing the assist of two people, so will need to see if pt can go home w/care or not, if it would be enough. Daughter Irasema states understanding. SW explained SW has list of SNF's in network w/insurance for her to review. She states daughter Evy is here in the room and to speak w/her. ART spoke w/daughter Evy in the room. Evy explains she has cared for pt for the last 12 years in [place], states pt just moved up here one month ago. Evy spoke about pt's lymphoedema, and frustrations in regard to pt's care here. ART offered support to daughter, offered to call pt advocate. Evy at this point does not want to speak w/the pt advocate but will let SW know if she would like SW to call advocate. She also would like to speak w/the physician, ART explained will text physician to see if he cane come over to speak w/Evy. ART spoke w/Evy also about discharge plan. She also is wanting pt to go home if possible, ART explained to Evy also that pt is needing a lot of assist and home w/one person may not be enough. ART provided to Evy a list of correction facilities in pt's preferred geographic area, that takes pt's insurance, complete w/quality and resource use data. ART explained this may be something that would be needed in between the hospital stay and home to get pt stronger. Daughter states understanding. SW texted physician, he will be in to see pt and daughter later. SW let daughter know, she states understanding. SW will continue to follow for both support to family and due to anticipated discharge plan to correction facility. JOSE JUAN Celaya
--- NOTE | 2021-05-17 10:42 | PN.HOSP_ITS ---
Subjective Subjective Doing well, no new issues overnight. She was on about 10 L yesterday and had to be on BiPAP overnight. She is on about 12 L this morning and will continue to wean as able Objective Data Objective Data Vital Signs: Vital Signs Temp Pulse Resp BP Pulse Ox 97.7 F L 80 20 H 151/43 H 95 05/17/21 08:44 05/17/21 08:44 05/17/21 08:44 05/17/21 08:44 05/17/21 09:19 Oxygen Flow Rate (L/min) 12 Oxygen Delivery Method Nasal Cannula Weight: 107 lb 5.842 oz Body Mass Index (BMI) 19.9 Intake & Output: Intake and Output for Last 24 Hours 05/16/21 05/17/21 05/18/21 03:59 03:59 03:59 Intake Total 610.25 / 610.25 752.83 / 752.83 179.75 / 179.75 Output Total 1400 / 1400 2650 / 2650 350 / 350 Balance -789.75 / -789.75 -1897.17 / -1897.17 -170.25 / -170.25 Lab / Micro Data Result Diagrams: 05/16/21 06:25 05/17/21 06:00 Labs: Laboratory Results - last 24 hr 05/17/21 06:00: Sodium 158 H, Potassium 2.4 L*, Chloride 117 H, Carbon Dioxide 33.0 H, Anion Gap 8, BUN 51 H, Creatinine 1.06 H, Estim Creat Clear Calc 29.29, Est GFR (MDRD) Af Amer 63, Est GFR (MDRD) Non-Af 52 L, BUN/Creatinine Ratio 48.1 H, Glucose 128 H, Calcium 9.4 05/17/21 06:00: Phosphorus 3.1, Magnesium 2.6 Micro: Microbiology 05/11/21 22:20 Wound - Leg, Left Gram Stain - Final 05/11/21 22:20 Wound - Leg, Left Wound Culture - Final Meth. resistant Staph. aureus 05/12/21 00:35 Mucosa - Nasopharyngeal Respiratory Panel (PCR) - Final 05/11/21 16:15 Urine, Random Legionella Antigen - Final 05/11/21 16:15 Urine, Random Streptococcus pneumoniae Antigen (M - Final 05/11/21 19:14 Nasal Secretion SARS-CoV-2 Antigen (Rapid) - Final Physical Exam Const alert, oriented x3 and no apparent distress General Appearance: cooperative HEENT normocephalic Mouth: dry mucous membranes Eyes PERRL, EOMs intact bilaterally and conjunctivae normal Neck supple and no JVD Resp normal respiratory effort, no retractions, no use of accessory muscles and clear to auscultation bilaterally Auscultation: diminished lung sounds; Negative for crackles, rales, rhonchi or wheezes Cardio regular rate, regular rhythm, S1 normal heart sound, S2 normal heart sound and no murmurs GI soft to palpation, non-tender and non-distended; Negative for hepatosplenomegaly Extremity no clubbing, cyanosis or edema Skin Skin Narrative: Left lower extremity knee abrasion with surrounding erythema Neuro no focal motor deficits and no sensory deficits noted Psych affect normal Appearance: appropriate Assessment & Plan Assessment/Plan (1) Encephalopathy: (2) Cellulitis: QUALIFIERS: Laterality: left Site of cellulitis: extremity Site of cellulitis of extremity: lower extremity Qualified Code(s): L03.116 - Cellulitis of left lower limb (3) Community acquired pneumonia: PLAN: 1. Acute hypoxic respiratory failure secondary to community-acquired pneumonia versus diastolic CHF/metabolic encephalopathy -Echo stage I diastolic dysfunction with normal ejection fraction moderate aortic stenosis -Lasix were discontinued secondary to climbing hypernatremia, will start her on D5W -Continue with Zosyn and vancomycin for her MRSA wound as well as for possible community-acquired pneumonia -Wean oxygen as able, will likely need BiPAP at night while sleeping -Confusion does appear to be improving if she is still tired 2. Left lower extremity cellulitis -MRSA growing from the wound, will continue vancomycin -Infectious disease was consulted not feel that she had an infected leg 3. HTN/HLD/possibly acute on chronic diastolic CHF/moderate aortic stenosis -She had a TAVR done down in [place] a year and a half ago -Continue with home amiodarone as well as Lipitor, bisoprolol, lisinopril 4. Hypothyroidism -Stable -Continue with Synthroid 5. Anxiety/depression -Stable -Continue escitalopram DVT: Heparin Charges/Coding Visit Charges Inpatient E&M: 40573 Subs Hosp L2
--- NOTE | 2021-05-17 10:50 | WOUNDNOTE ---
wound photo: right jo
--- NOTE | 2021-05-17 10:51 | WOUNDNOTE ---
wound photo: left knee
--- NOTE | 2021-05-17 11:43 | CASEMGMT ---
Addendum entered by Xiao Rodriguez 05/17/21 14:35: SW spoke w/Desiree at [facility], referral faxed. They would likely be able to take pt. SW will continue to follow. JOSE JUAN Celaya Addendum entered by Xiao Rodriguez 05/17/21 12:47: Pt's daughter Carmelita left SW a message stating her choices for SNF are 1. [facility] and 2. [facility]. SW called [facility] and put pt on the list, though there are no beds at present. SW called [facility] and left a message for Desiree. SW will continue to follow. JOSE JUAN Celaya Original Note: Pt's daughter Carmelita called this SW back, she states she does think the pt is going to need rehab placement in a group home. ART did let Carmelita know that ART gave Evy the SNF list for them to review. SW asked she and Evy review the list tonight and call SW tomorrow with group home choices. Daughter states understanding, is to call ART tomorrow. JOSE JUAN Celaya
[2021-05-17 12:39] LABS: Vancomycin, Trough Level 10.9 ug/mL (5.0-15.0)
--- NOTE | 2021-05-17 14:29 | PCM.RX.CS ---
Consult Pharmacy has been consulted to manage selected antiobiotic: Vancomycin Type of Consult: Follow-up Suspected Infection: Pneumonia Labs: Sodium 158 mmol/L (136-145) H 05/17/21 06:00 Potassium 2.4 mmol/L (3.5-5.1) L* 05/17/21 06:00 Chloride 117 mmol/L (98-107) H 05/17/21 06:00 Carbon Dioxide 33.0 mmol/L (21.0-32.0) H 05/17/21 06:00 Anion Gap 8 (5-15) 05/17/21 06:00 BUN 51 mg/dL (7-18) H 05/17/21 06:00 Creatinine 1.06 mg/dL (0.55-1.02) H 05/17/21 06:00 Est GFR (MDRD) Af Amer 63 mL/min (>60) 05/17/21 06:00 Est GFR (MDRD) Non-Af 52 mL/min (>60) L 05/17/21 06:00 BUN/Creatinine Ratio 48.1 RATIO (10-20) H 05/17/21 06:00 Glucose 128 mg/dL (74-106) H 05/17/21 06:00 Vancomycin Trough 10.9 ug/mL (5.0-15.0) 05/17/21 11:30 Microbiology: Microbiology 05/11/21 22:20 Wound - Leg, Left Gram Stain - Final 05/11/21 22:20 Wound - Leg, Left Wound Culture - Final Meth. resistant Staph. aureus 05/12/21 00:35 Mucosa - Nasopharyngeal Respiratory Panel (PCR) - Final 05/11/21 16:15 Urine, Random Legionella Antigen - Final 05/11/21 16:15 Urine, Random Streptococcus pneumoniae Antigen (M - Final 05/11/21 19:14 Nasal Secretion SARS-CoV-2 Antigen (Rapid) - Final Goal Trough: 15-20 mcg/mL Pharmacy Plan for Drug Dosing: VANCOMYCIN LEVEL RECEIVED Current Vancomycin Dose: 750mg q24h (1200) Number of Doses Received: 750mg x2 Vancomycin Level: 10.9 Hours Since Last Dose: 24.5 hours Renal Function: SrCr 1.06 Renal Function Trend: currently stable Lab/Micro: Vancomycin Plan/Comments: pts trough resulted below the ordered goal trough of 15-20. recommend increasing to 1000mg q24h starting 05/18/21 at 1200. pt may not be at steady state on the 750mg dose, will increase slowly. Pending Level: 05/20/21 at 1130 Pharmacy Service will continue to monitor and adjust dosing as required. Follow-Up Labs: Trough Vancomycin - 05/20/21 at 1130
--- NOTE | 2021-05-17 14:54 | CHAPLAIN ---
Type of Pastoral Visit ___ Initial Visit _x__ Follow-up Visit ___ On-call Visit ___ General Patient Visit ___ Spiritual Assessment ___ Family Conference ___ Bereavement ___ Rapid Response ___ Code Blue ___ Other (describe below) Pastoral Care Referral From _x__ Patient _x__ Family ___ Nurse ___ Physician ___ Property Accountant ___ Shipping Clerk Packing ___ Other (describe below) Sacrament/Intervention _x__ Active listening ___ Anointing ___ Sikh ___ Bereavement ___ Communion ___ Rohini exploration ___ _x__ Life review _x__ Prayer ___ Reconciliation ___ Sacrament of Sick _x__ Supportive presence ___ Wedding ___ Other (describe below) Pastoral Comments daughter was in room; daughter gives most of the information and update on pt health and care; offered of support and prayer eagerly received by both; sat and gave time to listen
--- NOTE | 2021-05-17 15:23 | PCM.PN.ID ---
Physical Exam Narrative Lethargic, no fever Const Orientation / Consciousness: lethargic Resp Auscultation: diminished lung sounds Cardio regular rate and regular rhythm GI normal to inspection, nondistended, normoactive bowel sounds Extremity no clubbing, cyanosis or edema Skin no rashes or lesions noted ID ID: Route of nutrition/ use of supplements: [] Nutritional Intake: [] IV Site: [] Garcia Catheter: [] Assessment & Plan Assessment/Plan (1) Noninfected skin tear of left lower extremity: QUALIFIERS: Encounter type: initial encounter Qualified Code(s): S81.812A - Laceration without foreign body, left lower leg, initial encounter (2) Encephalopathy: PLAN: Hypoxia, lymphopenia, encephalopathy, neg covid pcr. Is vaccinated. UAg neg. O2 slightly improved, on vanc/zosyn. Will follow
[2021-05-18] VITALS (10 sets, daily range): BP systolic 156–159; BP diastolic 63–96; PULSE 85–98; RESP 18–28; TEMP 36.4–36.8; O2SAT 86–96
[2021-05-18] MEDS: Menthol/Lanolin/Calamine/Znox 113 GM Tube 1 APPLIC TOPICAL ×3 (05:20→21:08)
[2021-05-18] MEDS: Albuterol 2.5 MG/3 ML VIAL.NEB. INHALATION ×3 (07:01→20:03)
[2021-05-18 07:43] LABS: Absolute Lymphocyte Count 0.62 X10^3/uL (0.83-4.51); Basophil# 0.05 X10^3/uL; Basophil% 0.3 % (0-1); Eosinophil# 0.16 X10^3/uL; Eosinophils% 1.1 % (0-5); Hematocrit 37.3 % (37-47); Hemoglobin 11.5 g/dL (12.0-15.0); Lymphocyte # 0.62 X10^3/ul (0.83-4.51); Lymphocyte % 4.2 % (19-41); Mean Corp Hgb Conc 30.8 g/dL (32-36); Mean Corpuscular Volume 87.6 fL (81-99); Mean Platelet Vol. 9.2 fl (6.2-12.0); Monocyte% 4.7 % (0-10); NRBC Flagged by Analyzer 0 % (0-5); Neutrophil # 13.02 X10^3/uL (2.7-7.7); Neutrophil % 88.3 % (47-70); Platelet Count 279 K/mm3 (150-450); RBC Distribution Width CV 18.9 % (11.6-14.6); RBC Distribution Width SD 60.4 fl (35.1-43.9); Red Blood Count 4.26 M/mm3 (4.2-5.4); White Blood Count 14.8 K/mm3 (4.4-11.0)
[2021-05-18 08:06] LABS: Anion Gap 6 (5-15); BUN 53 mg/dL (7-18); BUN/Creat Ratio 51.5 RATIO (10-20); Calcium,Total 9.5 mg/dL (8.5-10.1); Chloride 118 mmol/L (98-107); Creatinine, Serum 1.03 mg/dL (0.55-1.02); EST Glomerular Filtration Rate 54 mL/min (>60); Est Glom Filt Rate - Afr Amer 65 mL/min (>60); Estimated Creatinine Clearance 28.53 ml/min; Glucose 129 mg/dL (74-106); Potassium 2.9 mmol/L (3.5-5.1); Sodium Level 156 mmol/L (136-145)
--- NOTE | 2021-05-18 08:48 | WOUNDNOTE ---
Patient is currently up in chair. Pt off bipap. still appears SOB. minimal edema noted to legs. will keep GEETA per family request. no open areas noted. thin scabs remain intact.
[2021-05-18] MEDS: Heparin Injection (Vial) 5,000 UNIT/ML VIAL 5000 UNIT SC ×2 (09:26→21:18)
--- NOTE | 2021-05-18 10:20 | RAD_ITS ---
STUDY: X-RAY CHEST REASON FOR EXAM: Female, 86 years old. SOB TECHNIQUE: AP and lateral views of the chest. COMPARISON: Comparison is made with prior study dated 05/15/2021. FINDINGS: Since prior study, there is been improved aeration of both lungs. Residual infiltrates persist in the right upper lobe and left lower. There is no demonstrated pleural abnormality. Sternal cerclage wires are present from a prior sternotomy. Prior aortic valve replacement. Normal mediastinum and karin. Normal visualized pulmonary arteries. There is atherosclerotic calcification of the aortic arch with tortuosity. There is demineralization of the osseous structures. Increased kyphosis. Multilevel vertebroplasty of lower dorsal and upper lumbar vertebrae. Normal visualized ribs, clavicles, and shoulders. There is no demonstrated abnormality of the visualized soft tissue structures of the upper abdomen. RAD/Chest PA and Lateral IMPRESSION: Improved aeration of both lungs with residual changes in the right upper and left lower lobes. Electronically Signed: Milton Swartz MD at 14:16 EDT , Service support ,
--- NOTE | 2021-05-18 10:26 | PCM.PN.HOSP ---
Subjective Subjective Feeling better though requiring more oxygen. Sodium is little bit improved, no issues overnight. His little bit more awake today Objective Data Objective Data Vital Signs: Vital Signs Temp Pulse Resp BP Pulse Ox 97.6 F L 95 20 H 157/96 H 86 05/18/21 09:20 05/18/21 09:20 05/18/21 09:20 05/18/21 09:20 05/18/21 09:43 Oxygen Flow Rate (L/min) 13 Oxygen Delivery Method Nasal Cannula Weight: 101 lb 10.13 oz Body Mass Index (BMI) 19.9 Intake & Output: Intake and Output for Last 24 Hours 05/17/21 05/18/21 05/19/21 03:59 03:59 03:59 Intake Total 752.83 / 752.83 1094.75 / 1094.75 1000 / 1000 Output Total 2650 / 2650 1250 / 1250 350 / 350 Balance -1897.17 / -1897.17 -155.25 / -155.25 650 / 650 Lab / Micro Data Result Diagrams: 05/18/21 07:12 05/18/21 07:12 Labs: Laboratory Results - last 24 hr 05/17/21 11:30: Vancomycin Trough 10.9 05/18/21 07:12: WBC 14.8 H, RBC 4.26, Hgb 11.5 L, Hct 37.3, MCV 87.6, MCH 27.0, MCHC 30.8 L, RDW Std Deviation 60.4 H, RDW Coeff of Vick 18.9 H, Plt Count 279, MPV 9.2, Immature Gran % (Auto) 1.400 H, Neut % (Auto) 88.3 H, Lymph % (Auto) 4.2 L, [place] % (Auto) 4.7, Eos % (Auto) 1.1, Baso % (Auto) 0.3, Absolute Neuts (auto) 13.0 H, Absolute Lymphs (auto) 0.62 L, Nucleated RBC % 0 05/18/21 07:12: Sodium 156 H, Potassium 2.9 L, Chloride 118 H, Carbon Dioxide 32.0, Anion Gap 6, BUN 53 H, Creatinine 1.03 H, Estim Creat Clear Calc 28.53, Est GFR (MDRD) Af Amer 65, Est GFR (MDRD) Non-Af 54 L, BUN/Creatinine Ratio 51.5 H, Glucose 129 H, Calcium 9.5 Micro: Microbiology 05/11/21 22:20 Wound - Leg, Left Gram Stain - Final 05/11/21 22:20 Wound - Leg, Left Wound Culture - Final Meth. resistant Staph. aureus 05/12/21 00:35 Mucosa - Nasopharyngeal Respiratory Panel (PCR) - Final 05/11/21 16:15 Urine, Random Legionella Antigen - Final 05/11/21 16:15 Urine, Random Streptococcus pneumoniae Antigen (M - Final 05/11/21 19:14 Nasal Secretion SARS-CoV-2 Antigen (Rapid) - Final Radiography Diagnostic Testing: Radiology Impression Echocardiogram 05/17/21 05:55 Interpretation Summary Bioprosthetic aortic valve. Mean aortic valve gradient 26 mmHg. Moderate aortic stenosis. Normal LV size. Moderate eccentric left ventricular hypertrophy. Left ventricular systolic function is normal. The estimated ejection fraction is 60 %. Stage 1 diastolic dysfunction. Moderate (2+) eccentric mitral valve insufficiency. Ordering Physician: Kurt Carbajal Performed By: Lindsey Varghese, RIC, RVT Physical Exam Const alert, oriented x3 and no apparent distress General Appearance: cooperative HEENT normocephalic and moist oral mucous membranes Eyes PERRL, EOMs intact bilaterally and conjunctivae normal Neck supple and no JVD Resp normal respiratory effort, no retractions, no use of accessory muscles and clear to auscultation bilaterally Auscultation: diminished lung sounds; Negative for crackles, rales, rhonchi or wheezes Cardio regular rate, regular rhythm, S1 normal heart sound and S2 normal heart sound Heart Sounds: murmur systolic II/ GI soft to palpation, non-tender and non-distended; Negative for hepatosplenomegaly Extremity no clubbing, cyanosis or edema Skin no rashes or lesions noted Skin Narrative: Left lower extremity knee abrasion with surrounding erythema Neuro no focal motor deficits and no sensory deficits noted Psych affect normal Appearance: appropriate Assessment & Plan Assessment/Plan (1) Encephalopathy: (2) Cellulitis: QUALIFIERS: Site of cellulitis: extremity Site of cellulitis of extremity: lower extremity Laterality: left Qualified Code(s): L03.116 - Cellulitis of left lower limb (3) Community acquired pneumonia: PLAN: 1. Acute hypoxic respiratory failure secondary to community-acquired pneumonia versus diastolic CHF/metabolic encephalopathy -Echo stage I diastolic dysfunction with normal ejection fraction moderate aortic stenosis and pulmonary artery systolic pressure 44 mmHg -Lasix were discontinued secondary to climbing hypernatremia, will start her on D5W -Continue with Zosyn and vancomycin for her MRSA wound as well as for possible community-acquired pneumonia -Wean oxygen as able, will likely need BiPAP at night while sleeping -Confusion appears to be improved -Given increased oxygen requirements, will obtain a chest x-ray and consult pulmonology for assistance 2. Left lower extremity cellulitis -MRSA growing from the wound, will continue vancomycin -Infectious disease was consulted not feel that she had an infected leg 3. HTN/HLD/possibly acute on chronic diastolic CHF/moderate aortic stenosis -She had a TAVR done down in [place] a year and a half ago -Continue with home amiodarone as well as Lipitor, bisoprolol, lisinopril 4. Hypothyroidism -Stable -Continue with Synthroid 5. Anxiety/depression -Stable -Continue escitalopram DVT: Heparin Charges/Coding Visit Charges Inpatient E&M: 65993 Subs Hosp L2
[2021-05-18] MEDS: 0.9% Saline Lock 10 ML Syringe IV ×2 (11:32→16:13)
[2021-05-18] MEDS: Potassium Chloride 10mEq/100mL 10 MEQ/100 ML IV.SOLN. 100 MEQ IV BOLUS (11:33)
--- NOTE | 2021-05-18 12:08 | CASEMGMT ---
Addendum entered by Xiao Rodriguez 05/18/21 14:37: Pt's IV has been taken out, pt able to complete LW/POA forms. SW gave pt originals and copies. Pt's daughter Irasema called in to SW, SW updated her that pt is on the [facility]CU waiting list, and that [facility] may be able to take her as well. Daughter Irasema is hoping TCU will have a bed. Irasema then asked about POA papers, SW did let her know SW assisted pt and pt put Evy as POA and Irasema as the alternate. Irasema expressed frustration, stating pt wants Irasema as POA and she put Evy only because she is here w/pt. She inquired why she was not consulted before the papers were completed. SW educated daughter that the pt is the one to decide who the POA is, not the family. Irasema states that Evy said she couldn't care for pt anymore and so pt moved up here from [place] to be with Irasema. Irasema states pt had indicated before she wanted Irasema as POA. SW explained that SW asked pt who she wanted, and that pt said Evy. SW reiterated that it is the pt's choice who she puts as POA. Daughter Irasema asked about re-doing the papers. SW again explained it needs to come from the pt and if the pt states she wants to change it and put Irasema first, SW can re-do the papers w/the pt. Irasema states understanding. SW will continue to follow. JOSE JUAN Celaya Original Note: SW spoke w/pt and daughter in room, let them know that pt is on the list for TCU, and that if [facility]CU does not have a bed, [facility] will likely be able to take pt. Daughter asked about completing POA papers. SW spoke w/pt, she is alert and oriented today, and would like to put daughter Evy as POA and Carmelita as alternate. SW assisting pt in completing the papers however her IV is causing pain when writing. SW explained we can try to complete the papers later. ART will continue to follow. JOSE JUAN Celaya
--- NOTE | 2021-05-18 16:11 | CON.PCM.CC_ITS ---
Assessment & Plan Assessment/Plan (1) Acute respiratory failure with hypoxia: (2) Pulmonary hypertension: (3) Encephalopathy: PLAN: RECOMMENDATIONS: 1. Obtain EKG 2. Reinitiate baseline medications, IV if necessary 3. Wean oxygen as tolerated 4. Okay to hold on diuresis for now 5. Possibly discontinue D5W tomorrow IMPRESSIONS: 1. Acute hypoxic respiratory failure Unclear etiology at this time. Clinical suspicion for an element of cor pulmonale secondary to aortic stenosis and type II pulmonary hypertension related to diastolic dysfunction. Patient has been tachycardic. Will obtain an EKG to see if patient is in A. fib. If patient is in A. fib, amiodarone would be a priority. If patient is not in atrial fibrillation, rate control would be more of a priority. Patient does not appear to be significantly tachypneic. Would attempt to reinitiate baseline medications. If patient is unable to tolerate p.o., IV alternative such as Lopressor 2.5 IV every 6 would be recommended. Okay to hold on diuretics for now given hypernatremia and hyperchloremia. Unclear if patient truly has an infectious pulmonary etiology. Patient has not had a fever despite significant leukocytosis. Infectious disease is following. 2. Nonanion gap metabolic acidosis secondary to hyperchloremia Clinical suspicion for development secondary to aggressive diuretic therapy. Patient is on D5W at this time. Hopefully this can be discontinued tomorrow. Okay to hold on diuretic therapy from my perspective. 3. Left lower extremity cellulitis Patient does have inflammation of the left lower extremity. Patient has grown MRSA from the wound. Defer to infectious disease. 4. Advanced age/hypertension/hyperlipidemia/moderate /hypothyroidism/anxiety/depression Complicates care, management, recovery and prognosis. Could consider card iology evaluation for comparison of echocardiogram results. Clinical suspicion is that patient will benefit from rate control. Patient does have IV access at this time HPI Consult Data Date of Consult: 05/18/21 HPI Narrative HPI Narrative: KIKR PINEDA is an 86 F, with past medical history listed below, who presented to [facility] on 05/11/2021 secondary to generalized weakness and more confusion. Patient reportedly was found moaning in pain and had fallen on the floor multiple times. Patient did have a history of urinary tract infections in the past, so there was concern for an occult infection. Patient was brought to the ER for evaluation. In the ER, patient was afebrile with a heart rate of 64, but significant blood pressure of 204/81. Patient was saturating 95% on room air. Laboratory data showed a white blood cell count of 15.1 with hemoglobin of 12 and platelet count of 231. UA was unremarkable and troponin was 23. Creatinine was elevated at 1.06 and CK was within normal limits. A CT of the head showed no intracranial abnormalities. Chest x-ray showed some streaky left base infiltrates and a CT of the abdomen showed bilateral lower lobe atelectasis versus developing pneumonia. Patient was admitted to the floor for further evaluation. Over the course of patient's hospitalization, she was given diuretic therapy. However, patient's oxygenation has continued to worsen. Patient had an echocar diogram showing moderate aortic stenosis. Patient was also seen by infectious disease. There was concern for a noninfected skin tear of the left lower extremity and encephalopathy. Covid PCR was negative. Patient was stopped on azithromycin, but ceftriaxone was initially continued. A CTA of the chest showed no PE, but antibiotics were broadened to Zosyn therapy. Patient was relatively confused on my evaluation. Patient was not able to provide much additional history. Daughter at the bedside was very anxious, but had reported that she had an echocardiogram in [place] 2 months ago that was reportedly normal. Daughter had reported that she had not had problems with aspiration in the past. Patient is a very poor historian, but review of systems otherwise negative from a constitutional, HEENT, respiratory, cardiovascular, GI, genitourinary, musculoskeletal, skin, neurologic, psychiatric and hematologic system unless stated above. 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 Home Medications amiodarone 200 mg PO DAILY 04/30/21 [History Last Taken 05/11/21] atorvastatin 80 mg PO DAILY 04/30/21 [History Last Taken 05/10/21] bisoprolol fumarate 2.5 mg PO DAILY 04/30/21 [History Last Taken 05/10/21] bumetanide 1 mg PO DAILY 04/30/21 [History Last Taken 05/11/21] citalopram 10 mg PO DAILY 04/30/21 [History Last Taken 05/11/21] levothyroxine 50 mcg PO DAILY 04/30/21 [History Last Taken 05/11/21] lisinopril 20 mg PO DAILY 04/30/21 [History Last Taken 05/11/21] amoxicillin-pot clavulanate [Augmentin] 1 tab PO Q12H 7 Days #14 tab 05/07/21 [Rx Last Taken Unknown] aspirin [Aspirin Low-Strength] 81 mg PO DAILY 05/11/21 [History Last Taken 05/11/21] lisinopril 10 mg PO QHS 05/11/21 [History Last Taken 05/10/21] potassium chloride 20 meq PO DAILY 05/11/21 [History Last Taken 05/11/21] tramadol 200 mg PO TID PRN 05/11/21 [History Last Taken 05/11/21 11:00] Allergy/AdvReac Type Severity Reaction Status Date / Time erythromycin base Allergy Mild Diarrhea Verified 05/11/21 15:20 meloxicam Allergy Unknown Low Verified 05/11/21 15:20 platelets Family History other Surgical History H/O aortic valve replacement History of kyphoplasty History of renal stent S/P TAVR (transcatheter aortic valve replacement) Social History (Updated 05/11/21 @ 21:[address] Rocio Jennings MD) household members: family Smoking Status: Never smoker alcohol intake: never substance use type: does not use ROS ROS Narrative See HPI Physical Exam Const alert, oriented x3 and no apparent distress General Appearance: cooperative HEENT normocephalic Mouth: dry mucous membranes Eyes PERRL, EOMs intact bilaterally and conjunctivae normal Neck supple and no JVD Resp Auscultation: rales bilateral base and diminished lung sounds; Negative for crackles, rhonchi or wheezes Cardio regular rate, regular rhythm, S1 normal heart sound and S2 normal heart sound Heart Sounds: murmur systolic IV/ harsh mid apex to carotid arteries GI soft to palpation, non-tender and non-distended; Negative for hepatosplenomegaly Extremity no clubbing, cyanosis or edema Skin Skin Narrative: Left lower extremity knee abrasion with surrounding erythema. Multiple ecchymotic areas noted. Neuro no focal motor deficits and no sensory deficits noted Psych affect normal Appearance: appropriate Lab / Micro Data Result Diagrams: 05/18/21 07:12 05/18/21 07:12 Labs: Laboratory Results - last 24 hr 05/18/21 07:12: WBC 14.8 H, RBC 4.26, Hgb 11.5 L, Hct 37.3, MCV 87.6, MCH 27.0, MCHC 30.8 L, RDW Std Deviation 60.4 H, RDW Coeff of Vick 18.9 H, Plt Count 279, MPV 9.2, Immature Gran % (Auto) 1.400 H, Neut % (Auto) 88.3 H, Lymph % (Auto) 4.2 L, [place] % (Auto) 4.7, Eos % (Auto) 1.1, Baso % (Auto) 0.3, Absolute Neuts (auto) 13.0 H, Absolute Lymphs (auto) 0.62 L, Nucleated RBC % 0 05/18/21 07:12: Sodium 156 H, Potassium 2.9 L, Chloride 118 H, Carbon Dioxide 32.0, Anion Gap 6, BUN 53 H, Creatinine 1.03 H, Estim Creat Clear Calc 28.53, Est GFR (MDRD) Af Amer 65, Est GFR (MDRD) Non-Af 54 L, BUN/Creatinine Ratio 51.5 H, Glucose 129 H, Calcium 9.5 Radiology Impression Chest X-Ray 05/18/21 10:20 IMPRESSION: Improved aeration of both lungs with residual changes in the right upper and left lower lobes. Electronically Signed: Milton Swartz MD at 14:16 EDT , Service support , Charges/Coding Visit Charges Inpatient E&M: 66391 Init Hosp L3
--- NOTE | 2021-05-18 16:13 | CASEMGMT ---
Pt's daughter Carmelita called again, stating she does not think pt is alert and oriented enough to do POA papers. She states her boss is a warm in worker and her boss states to ask the doctor. SW explained will ask the physician if he thinks pt is alert and oriented enough to complete POA papers. SW explained that for this SW, pt did seem alert and oriented enough to complete the papers. SW spoke w/physician, he confirmed that pt is alert and oriented and should be able to complete POA papers. SW asked pt's daughter Evy to leave the room. SW spoke w/pt without Evy in the room. SW explained that daughter Carmelita had indicated to this SW that pt had said she wanted Carmelita to be POA. Pt again states she wants Evy to be the POA. She states Evy understands things more medically than Carmelita does. Pt states she wants Evy, not Carmelita, as POA. SW spoke w/Evy, explained the concern of Carmelita and the POA. Evy states that pt has always wanted Evy and not Carmelita. She spoke about decades of a difficult relationship w/Carmelita. SW offered to speak w/the two daughters together if they thought it would be helpful, explained is going to call Carmelita and explain what pt said. SW called Carmelita, explained physician confirmed pt is alert and oriented. SW also explained spoke w/pt without Evy in room, and pt again reiterated that she wants Evy as POA, stating Evy understands things more medically than Carmelita. Carmelita states it's fine, she will just get the POA changed once she is home again. Carmelita states that Evy didn't want pt in [place] anymore and couldn't take care of her anymore. ART explained that pt is her own decision maker at the moment, so it's still up to pt to make her own decisions. ART offered to meet w/Sulma and Carmelita, reminded Carmelita that they do both care about their mother, SW is able to meet w/the two of things to talk things through. ART told Carmelita to call ART if she would like to do this tomorrow. Evy then spoke w/ART at length about the situation, expressed frustration w/Carmelita. She states she is going to get an finance attorney involved. SW again offered to meet w/the two daughters, Evy declined to do this. Evy is in agreement w/TCU vs. [facility], pt in agreement w/choices daughters making in regard to rehab. Evy is okay w/Carmelita's choices on this as she lives here and was able to check w/someone with whom she works who is an finance attorney and knows about the nursing homes here. ART also did reiterate to Evy that pt is her own decision maker at this time. Plan continues to be TCU vs [facility] for rehab when pt is ready. JOSE JUAN Celaya
[2021-05-18] MEDS: Vancomycin IV 1,000 MG/200 ML BAG 200 MG IV (16:30)
--- NOTE | 2021-05-18 16:41 | CASEMGMT ---
Pt is ready for discharge. SW completed PAS/RR in the [facility] system. ART faxed all discharge paperwork to [facility], including med list and transfer to extended care. Schedule II med script sent to [facility]. ART set up a 5pm wheelchair van w/Physicians. ART let pt, bedside RN, and Randell know time of pickup. Pt has not been able to reach as his line has been busy. SW did also try multiple times and the line has been busy. Pt to [facility], skilled for a convalescent stay, though PAS/RR was completed as pt is here observation. No further needs at this time. JOSE JUAN Celaya
--- NOTE | 2021-05-18 17:02 | EKG12_ITS ---
Test Reason : A-FIB Blood Pressure : / mmHG Vent. Rate : 099 BPM Atrial Rate : 099 BPM P-R Int : 202 ms QRS Dur : 106 ms QT Int : 372 ms P-R-T Axes : 052 011 182 degrees QTc Int : 477 ms Sinus rhythm with Premature atrial complexes Possible Right atrial enlargement Left ventricular hypertrophy Consider right ventricular involvement in acute inferior infarct ST/T wave abnormltiy: consider medication effect, metabolic effect, LVH repolarization, myocardial is chemia Confirmed by TRAY ARMSTRONG, BHARGAV ([id number]), society editor CHELLE LAWLER ([id number]) on 05/25/2021 10:13:46 AM Referred By: GALDINO Confirmed By:BHARGAV FELIZ MD
[2021-05-18] MEDS: Bisoprolol Fumarate 5 MG Tablet 2.5 MG PO (17:03)
[2021-05-18] MEDS: Amiodarone 200 MG Tablet PO (17:05)
[2021-05-18] MEDS: Citalopram 10 MG Tablet PO (17:05)
[2021-05-18] MEDS: Lisinopril 20 MG Tablet PO (17:05)
[2021-05-18] MEDS: Potassium Chloride 10mEq/100mL 10 MEQ/100 ML IV.SOLN. 50 MEQ IV BOLUS ×2 (18:20→20:57)
[2021-05-18] MEDS: Lisinopril 10 MG Tablet PO (21:10)
[2021-05-18] MEDS: Atorvastatin Calcium 80 MG Tablet PO (21:10)
[2021-05-19] VITALS (24 sets, daily range): BP systolic 132–186; BP diastolic 45–78; PULSE 66–86; RESP 12–27; TEMP 36.3–36.9; O2SAT 82–97
[2021-05-19] MEDS: Potassium Chloride 10mEq/100mL 10 MEQ/100 ML IV.SOLN. 50 MEQ IV BOLUS (00:16)
[2021-05-19] MEDS: Menthol/Lanolin/Calamine/Znox 113 GM Tube 1 APPLIC TOPICAL ×3 (05:35→21:26)
[2021-05-19] MEDS: Levothyroxine 50 MCG Tablet PO (05:35)
[2021-05-19 06:27] LABS: Absolute Lymphocyte Count 0.54 X10^3/uL (0.83-4.51); Absolute Neutrophil Count 12.9 X10^3/uL (2.0-7.7); Basophil# 0.06 X10^3/uL; Basophil% 0.4 % (0-1); Eosinophil# 0.39 X10^3/uL; Eosinophils% 2.6 % (0-5); Hematocrit 35.4 % (37-47); Hemoglobin 10.7 g/dL (12.0-15.0); Lymphocyte # 0.54 X10^3/ul (0.83-4.51); Lymphocyte % 3.6 % (19-41); Mean Corp Hgb Conc 30.2 g/dL (32-36); Mean Corpuscular Volume 89.2 fL (81-99); Mean Platelet Vol. 9.4 fl (6.2-12.0); Monocyte# 0.52 X10^3/uL; Monocyte% 3.5 % (0-10); NRBC Flagged by Analyzer 0 % (0-5); Neutrophil # 12.92 X10^3/uL (2.7-7.7); Neutrophil % 87.1 % (47-70); POSITIVE DIFFERENTIAL YES; Platelet Count 269 K/mm3 (150-450); RBC Distribution Width CV 18.9 % (11.6-14.6); RBC Distribution Width SD 61.8 fl (35.1-43.9); Red Blood Count 3.97 M/mm3 (4.2-5.4); White Blood Count 14.8 K/mm3 (4.4-11.0)
[2021-05-19 06:49] LABS: Differential Indicated SCAN CRITERIA MET
[2021-05-19 06:50] LABS: Differential Comment SCANNED
[2021-05-19] MEDS: Albuterol 2.5 MG/3 ML VIAL.NEB. INHALATION ×3 (06:51→22:21)
[2021-05-19 06:59] LABS: Anion Gap 7 (5-15); BUN 46 mg/dL (7-18); BUN/Creat Ratio 44.7 RATIO (10-20); Chloride 119 mmol/L (98-107); Creatinine, Serum 1.03 mg/dL (0.55-1.02); EST Glomerular Filtration Rate 54 mL/min (>60); Est Glom Filt Rate - Afr Amer 65 mL/min (>60); Estimated Creatinine Clearance 28.35 ml/min; Glucose 125 mg/dL (74-106); Potassium 3.2 mmol/L (3.5-5.1); Sodium Level 158 mmol/L (136-145)
--- NOTE | 2021-05-19 07:18 | PCM.PN.INT ---
Assessment & Plan Assessment/Plan (1) Acute respiratory failure with hypoxia: (2) Pulmonary hypertension: (3) Encephalopathy: PLAN: RECOMMENDATIONS: 1. Increase beta-yesenia 2. Continue baseline medications 3. Wean oxygen as tolerated 4. Aggressive potassium repletion 5. Okay to continue D5W at the current rate IMPRESSIONS: 1. Acute hypoxic respiratory failure Unclear etiology at this time. Clinical suspicion for an element of cor pulmonale secondary to aortic stenosis and type II pulmonary hypertension related to diastolic dysfunction. Patient has been tachycardic. Will increase patient's beta-yesenia. Continue with other baseline medications for now. No diuretics given patient's hypernatremia and hyperchloremia. Elevated chloride will lead to increased pulmonary demand and worsening mechanics. 2. Nonanion gap metabolic acidosis secondary to hyperchloremia Clinical suspicion for development secondary to aggressive diuretic therapy. Patient is on D5W at this time. We will continue to address on a daily basis. Okay to hold on diuretic therapy from my perspective. If patient is able to take water by mouth, this would be optimal. Speech therapy is following. 3. Left lower extremity cellulitis Patient does have inflammation of the left lower extremity. Patient has grown MRSA from the wound. Defer to infectious disease. 4. Advanced age/hypertension/hyperlipidemia/moderate /hypothyroidism/anxiety/depression Complicates care, management, recovery and prognosis. Could consider cardiology evaluation for comparison of echocardiogram results. Clinical suspicion is that patient will benefit from rate control. Beta-yesenia will be increased. Patient does have IV access at this time Subjective Subjective Patient did okay overnight. Patient still requiring high doses of nasal cannula oxygen to maintain saturations. Patient reported that she felt cold this morning, but denied any pain. Patient did not report any dyspnea. Objective Data Objective Data Vital Signs: Vital Signs Temp Pulse Resp BP Pulse Ox 36.3 C L 86 20 H 146/69 H 93 05/19/21 03:07 05/19/21 03:07 05/19/21 03:07 05/19/21 03:07 05/19/21 03:07 Oxygen Flow Rate (L/min) 14 Oxygen Delivery Method Nasal Cannula Weight: 45.8 kg Body Mass Index (BMI) 19.9 Intake & Output: Intake and Output for Last 24 Hours 05/17/21 05/18/21 05/19/21 23:59 23:59 23:59 Intake Total 1094.75 / 1094.75 2123.08 / 2123.08 300 / 300 Output Total 1500 / 1750 925 / 925 550 / 550 Balance -405.25 / -655.25 1198.08 / 1198.08 -250 / -250 Lab / Micro Data Result Diagrams: 05/19/21 05:55 05/19/21 05:55 Labs: Laboratory Results - last 24 hr 05/18/21 07:12: WBC 14.8 H, RBC 4.26, Hgb 11.5 L, Hct 37.3, MCV 87.6, MCH 27.0, MCHC 30.8 L, RDW Std Deviation 60.4 H, RDW Coeff of Vick 18.9 H, Plt Count 279, MPV 9.2, Immature Gran % (Auto) 1.400 H, Neut % (Auto) 88.3 H, Lymph % (Auto) 4.2 L, [place] % (Auto) 4.7, Eos % (Auto) 1.1, Baso % (Auto) 0.3, Absolute Neuts (auto) 13.0 H, Absolute Lymphs (auto) 0.62 L, Nucleated RBC % 0 05/18/21 07:12: Sodium 156 H, Potassium 2.9 L, Chloride 118 H, Carbon Dioxide 32.0, Anion Gap 6, BUN 53 H, Creatinine 1.03 H, Estim Creat Clear Calc 28.53, Est GFR (MDRD) Af Amer 65, Est GFR (MDRD) Non-Af 54 L, BUN/Creatinine Ratio 51.5 H, Glucose 129 H, Calcium 9.5 05/19/21 05:55: WBC 14.8 H, RBC 3.97 L, Hgb 10.7 L, Hct 35.4 L, MCV 89.2, MCH 27.0, MCHC 30.2 L, RDW Std Deviation 61.8 H, RDW Coeff of Vick 18.9 H, Plt Count 269, MPV 9.4, Immature Gran % (Auto) 2.800 H, Neut % (Auto) 87.1 H, Lymph % (Auto) 3.6 L, [place] % (Auto) 3.5, Eos % (Auto) 2.6, Baso % (Auto) 0.4, Absolute Neuts (auto) 12.9 H, Absolute Lymphs (auto) 0.54 L, Nucleated RBC % 0, Differential Comment SCANNED 05/19/21 05:55: Sodium 158 H, Potassium 3.2 L, Chloride 119 H, Carbon Dioxide 32.0, Anion Gap 7, BUN 46 H, Creatinine 1.03 H, Estim Creat Clear Calc 28.35, Est GFR (MDRD) Af Amer 65, Est GFR (MDRD) Non-Af 54 L, BUN/Creatinine Ratio 44.7 H, Glucose 125 H, Calcium 9.0 Micro: Microbiology 05/11/21 22:20 Wound - Leg, Left Gram Stain - Final 05/11/21 22:20 Wound - Leg, Left Wound Culture - Final Meth. resistant Staph. aureus 05/12/21 00:35 Mucosa - Nasopharyngeal Respiratory Panel (PCR) - Final 05/11/21 16:15 Urine, Random Legionella Antigen - Final 05/11/21 16:15 Urine, Random Streptococcus pneumoniae Antigen (M - Final 05/11/21 19:14 Nasal Secretion SARS-CoV-2 Antigen (Rapid) - Final Radiography Diagnostic Testing: Radiology Impression Chest X-Ray 05/18/21 10:20 IMPRESSION: Improved aeration of both lungs with residual changes in the right upper and left lower lobes. Electronically Signed: Milton Swartz MD at 14:16 EDT , Service support , Physical Exam Const alert, oriented x3 and no apparent distress General Appearance: cooperative HEENT normocephalic Mouth: dry mucous membranes Eyes PERRL, EOMs intact bilaterally and conjunctivae normal Neck supple and no JVD Resp Auscultation: rales bilateral base and diminished lung sounds; Negative for crackles, rhonchi or wheezes Cardio regular rate, regular rhythm, S1 normal heart sound and S2 normal heart sound Heart Sounds: murmur systolic IV/ harsh mid apex to carotid arteries GI soft to palpation, non-tender and non-distended; Negative for hepatosplenomegaly Extremity no clubbing, cyanosis or edema Skin Skin Narrative: Left lower extremity knee abrasion with surrounding erythema. Multiple ecchymotic areas noted. Neuro no focal motor deficits and no sensory deficits noted Psych affect normal Appearance: appropriate Charges/Coding Visit Charges Inpatient E&M: 10219 Subs Hosp L3
--- NOTE | 2021-05-19 07:25 | CPS ---
PT WAS INCREASED TO 15 LPM. NURSE AWARE OF CHANGE
[2021-05-19] MEDS: Potassium Chloride 10mEq/100mL 10 MEQ/100 ML IV.SOLN. 100 MEQ IV BOLUS ×4 (08:04→11:55)
[2021-05-19] MEDS: Bisoprolol Fumarate 5 MG Tablet PO (09:32)
[2021-05-19] MEDS: Citalopram 10 MG Tablet PO (09:32)
[2021-05-19] MEDS: Aspirin E.C. 81 MG Tablet PO (09:32)
[2021-05-19] MEDS: Amiodarone 200 MG Tablet PO (09:32)
[2021-05-19] MEDS: Heparin Injection (Vial) 5,000 UNIT/ML VIAL 5000 UNIT SC ×2 (09:33→21:26)
[2021-05-19] MEDS: Lisinopril 20 MG Tablet PO (09:33)
--- NOTE | 2021-05-19 11:21 | PCM.PN.HOSP ---
Subjective Subjective More alert today, she knows the year and who she is, she knows that she is in the hospital she just cannot remember the name of the hospital Objective Data Objective Data Vital Signs: Vital Signs Temp Pulse Resp BP Pulse Ox 97.4 F L 77 20 H 186/78 H 95 05/19/21 09:30 05/19/21 09:30 05/19/21 09:30 05/19/21 09:30 05/19/21 09:30 Oxygen Flow Rate (L/min) 14 Oxygen Delivery Method Nasal Cannula Weight: 100 lb 15.547 oz Body Mass Index (BMI) 19.9 Intake & Output: Intake and Output for Last 24 Hours 05/18/21 05/19/21 05/20/21 03:59 03:59 03:59 Intake Total 1094.75 / 1094.75 2223.08 / 2223.08 400 / 400 Output Total 1250 / 1250 875 / 875 350 / 350 Balance -155.25 / -155.25 1348.08 / 1348.08 50 / 50 Lab / Micro Data Result Diagrams: 05/19/21 05:55 05/19/21 05:55 Labs: Laboratory Results - last 24 hr 05/19/21 05:55: WBC 14.8 H, RBC 3.97 L, Hgb 10.7 L, Hct 35.4 L, MCV 89.2, MCH 27.0, MCHC 30.2 L, RDW Std Deviation 61.8 H, RDW Coeff of Vick 18.9 H, Plt Count 269, MPV 9.4, Immature Gran % (Auto) 2.800 H, Neut % (Auto) 87.1 H, Lymph % (Auto) 3.6 L, [place] % (Auto) 3.5, Eos % (Auto) 2.6, Baso % (Auto) 0.4, Absolute Neuts (auto) 12.9 H, Absolute Lymphs (auto) 0.54 L, Nucleated RBC % 0, Differential Comment SCANNED 05/19/21 05:55: Sodium 158 H, Potassium 3.2 L, Chloride 119 H, Carbon Dioxide 32.0, Anion Gap 7, BUN 46 H, Creatinine 1.03 H, Estim Creat Clear Calc 28.35, Est GFR (MDRD) Af Amer 65, Est GFR (MDRD) Non-Af 54 L, BUN/Creatinine Ratio 44.7 H, Glucose 125 H, Calcium 9.0 Micro: Microbiology 05/11/21 22:20 Wound - Leg, Left Gram Stain - Final 05/11/21 22:20 Wound - Leg, Left Wound Culture - Final Meth. resistant Staph. aureus 05/12/21 00:35 Mucosa - Nasopharyngeal Respiratory Panel (PCR) - Final 05/11/21 16:15 Urine, Random Legionella Antigen - Final 05/11/21 16:15 Urine, Random Streptococcus pneumoniae Antigen (M - Final 05/11/21 19:14 Nasal Secretion SARS-CoV-2 Antigen (Rapid) - Final Radiography Diagnostic Testing: Radiology Impression Chest X-Ray 05/18/21 10:20 IMPRESSION: Improved aeration of both lungs with residual changes in the right upper and left lower lobes. Electronically Signed: Milton Swartz MD at 14:16 EDT , Service support , Physical Exam Const alert, oriented x3 and no apparent distress General Appearance: cooperative HEENT normocephalic and moist oral mucous membranes Eyes PERRL, EOMs intact bilaterally and conjunctivae normal Neck supple and no JVD Resp normal respiratory effort, no retractions and no use of accessory muscles Auscultation: crackles and diminished lung sounds; Negative for rales, rhonchi or wheezes Cardio regular rate, regular rhythm, S1 normal heart sound and S2 normal heart sound Heart Sounds: murmur systolic II/ GI soft to palpation, non-tender and non-distended; Negative for hepatosplenomegaly Extremity no clubbing, cyanosis or edema Skin Skin Narrative: Left lower extremity knee abrasion with surrounding erythema Neuro no focal motor deficits and no sensory deficits noted Psych affect normal Appearance: appropriate Assessment & Plan Assessment/Plan (1) Encephalopathy: (2) Cellulitis: QUALIFIERS: Site of cellulitis: extremity Site of cellulitis of extremity: lower extremity Laterality: left Qualified Code(s): L03.116 - Cellulitis of left lower limb (3) Community acquired pneumonia: PLAN: 1. Acute hypoxic respiratory failure secondary to community-acquired pneumonia versus diastolic CHF/metabolic encephalopathy -Echo stage I diastolic dysfunction with normal ejection fraction moderate aortic stenosis and pulmonary artery systolic pressure 44 mmHg -Lasix were discontinued secondary to climbing hypernatremia, continue with D5W -Continue with Zosyn and vancomycin for her MRSA wound as well as for possible community-acquired pneumonia -Wean oxygen as able, will likely need BiPAP at night while sleeping -Confusion appears to be improved -Given increased oxygen requirements, will obtain a chest x-ray and consult pulmonology for assistance 2. Left lower extremity cellulitis -MRSA growing from the wound, will continue vancomycin -Infectious disease was consulted not feel that she had an infected leg 3. HTN/HLD/possibly acute on chronic diastolic CHF/moderate aortic stenosis -She had a TAVR done down in [place] a year and a half ago -Continue with home amiodarone as well as Lipitor, and lisinopril -Holding monitor blood pressures, she has been off of her blood pressure medications for the last several days secondary to n.p.o. status -Increase her beta-yesenia and monitor her heart rate. 4. Hypothyroidism -Stable -Continue with Synthroid 5. Anxiety/depression -Stable -Continue escitalopram DVT: Heparin Charges/Coding Visit Charges Inpatient E&M: 71751 Subs Hosp L2
[2021-05-19] MEDS: Vancomycin IV 1,000 MG/200 ML BAG 200 MG IV (11:54)
--- NOTE | 2021-05-19 20:24 | PCM.PN.ID ---
Physical Exam Narrative Sleeping, breathing better, d/w daughter at bedside. No fever. Const Orientation / Consciousness: lethargic Resp Auscultation: diminished lung sounds Cardio Rate: tachycardic GI normal to inspection, nondistended, normoactive bowel sounds Skin Skin Narrative: wounds on BLE ID ID: Route of nutrition/ use of supplements: [] Nutritional Intake: [] IV Site: [] Garcia Catheter: [] Assessment & Plan Assessment/Plan (1) Noninfected skin tear of left lower extremity: QUALIFIERS: Encounter type: initial encounter Qualified Code(s): S81.812A - Laceration without foreign body, left lower leg, initial encounter (2) Encephalopathy: PLAN: Hypoxia, lymphopenia, encephalopathy, neg covid pcr. Is vaccinated. UAg neg. O2 slightly improved, on vanc/zosyn. Wound cx with mrsa. Will follow
[2021-05-19] MEDS: Atorvastatin Calcium 80 MG Tablet PO (21:26)
[2021-05-19] MEDS: MELATONIN 3 MG TABLET PO (21:26)
[2021-05-19] MEDS: Lisinopril 10 MG Tablet PO (21:26)
[2021-05-19] MEDS: guaiFENesin 10 ML UDC (200MG/10ML) 20 ML PO (21:27)
[2021-05-19] MEDS: Acetaminophen 325 MG Tablet 650 MG PO (21:27)
[2021-05-19] MEDS: LORazepam 0.5 MG Tablet PO (21:59)
[2021-05-20] VITALS (17 sets, daily range): BP systolic 126–152; BP diastolic 47–90; PULSE 55–79; RESP 12–34; TEMP 36.1–36.6; O2SAT 90–98
[2021-05-20] MEDS: Menthol/Lanolin/Calamine/Znox 113 GM Tube 1 APPLIC TOPICAL ×3 (04:52→21:22)
[2021-05-20 06:19] LABS: Absolute Lymphocyte Count 0.55 X10^3/uL (0.83-4.51); Absolute Neutrophil Count 12.1 X10^3/uL (2.0-7.7); Basophil# 0.07 X10^3/uL; Basophil% 0.5 % (0-1); Eosinophil# 0.54 X10^3/uL; Eosinophils% 3.8 % (0-5); Lymphocyte # 0.55 X10^3/ul (0.83-4.51); Lymphocyte % 3.9 % (19-41); Mean Corp Hgb Conc 30.3 g/dL (32-36); Mean Corpuscular Hgb 26.9 pg (27.0-32.0); Mean Corpuscular Volume 88.7 fL (81-99); Mean Platelet Vol. 9.6 fl (6.2-12.0); Monocyte# 0.39 X10^3/uL; Monocyte% 2.8 % (0-10); NRBC Flagged by Analyzer 0 % (0-5); Neutrophil # 12.06 X10^3/uL (2.7-7.7); Neutrophil % 85.2 % (47-70); POSITIVE DIFFERENTIAL YES; Platelet Count 227 K/mm3 (150-450); RBC Distribution Width CV 18.6 % (11.6-14.6); RBC Distribution Width SD 60.9 fl (35.1-43.9); Red Blood Count 3.72 M/mm3 (4.2-5.4); White Blood Count 14.2 K/mm3 (4.4-11.0)
[2021-05-20 06:24] LABS: Differential Indicated SCAN CRITERIA MET
[2021-05-20 06:36] LABS: Differential Comment SCANNED
[2021-05-20 06:45] LABS: Anion Gap 6 (5-15); BUN 53 mg/dL (7-18); BUN/Creat Ratio 38.4 RATIO (10-20); Calcium,Total 8.6 mg/dL (8.5-10.1); Chloride 117 mmol/L (98-107); Creatinine, Serum 1.38 mg/dL (0.55-1.02); EST Glomerular Filtration Rate 39 mL/min (>60); Est Glom Filt Rate - Afr Amer 47 mL/min (>60); Estimated Creatinine Clearance 21.67 ml/min; Glucose 109 mg/dL (74-106); Potassium 3.5 mmol/L (3.5-5.1); Sodium Level 153 mmol/L (136-145)
[2021-05-20 06:51] LABS: Magnesium 2.5 mg/dL (1.6-2.6); Phosphorus 3.7 mg/dL (2.5-4.9)
--- NOTE | 2021-05-20 07:03 | PN.CC_ITS ---
Assessment & Plan Assessment/Plan (1) Acute respiratory failure with hypoxia: (2) Pulmonary hypertension: (3) Encephalopathy: PLAN: RECOMMENDATIONS: 1. Continue beta-yesenia and amiodarone 2. Initiate diuretic therapy 3. Wean oxygen as tolerated 4. Aggressive potassium repletion 5. Okay to continue D5W at the current rate IMPRESSIONS: 1. Acute hypoxic respiratory failure Unclear etiology at this time. Clinical suspicion for an element of cor pulmonale secondary to aortic stenosis and type II pulmonary hypertension re lated to diastolic dysfunction. Heart rate is well controlled at this time. Continue with other baseline medications for now. Given progression to BiPAP therapy, patient will be given diuretics today. Elevated chloride will lead to increased pulmonary demand and worsening mechanics. 2. Nonanion gap metabolic acidosis secondary to hyperchloremia/acute kidney injury Clinical suspicion for development secondary to aggressive diuretic therapy. Patient is on D5W at this time. Patient would ideally be taking p.o. water for normalization. However, given respiratory status patient will be placed on IV Lasix with D5W for repletion. Elevation in creatinine may be secondary to decreased perfusion secondary to elevated Starling forces. If patient improves with diuresis, this would be confirmed. 3. Left lower extremity cellulitis Patient does have inflammation of the left lower extremity. Patient was significantly low oncotic pressure complicating fluid management. Patient has grown MRSA from the wound. Defer to infectious disease. 4. Advanced age/hypertension/hyperlipidemia/moderate /hypothyroidism/anxi ety/depression Complicates care, management, recovery and prognosis. Could consider c ardiology evaluation for comparison of echocardiogram results. Clinical suspicion is that patient will benefit from rate control. Beta-yesenia will be continued. This should be transitioned to IV if patient is unable to take p.o. Patient does have IV access at this time Subjective Subjective Patient with significant difficulties overnight. Patient has required initiation of BiPAP to maintain saturations. Patient denied any pain this morning. Patient continues to have significant restrictions with swallowing. Objective Data Objective Data Vital Signs: Vital Signs Temp Pulse Resp BP Pulse Ox 36.1 C L 60 24 H 137/50 H 98 05/20/21 06:14 05/20/21 06:14 05/20/21 06:14 05/20/21 06:14 05/20/21 06:14 Oxygen Flow Rate (L/min) 15 Oxygen Delivery Method Bi-pap Weight: 46.901 kg Body Mass Index (BMI) 19.9 Intake & Output: Intake and Output for Last 24 Hours 05/18/21 05/19/21 05/20/21 23:59 23:59 23:59 Intake Total 2123.08 / 2123.08 2383.5 / 2383.5 50 / 50 Output Total 925 / 925 850 / 850 350 / 350 Balance 1198.08 / 1198.08 1533.5 / 1533.5 -300 / -300 Medical Nutrition Assessment Dietitian: Malnutrition Criteria Met Start: 05/19/21 17:03 Freq: Status: Active Protocol: Document 05/19/21 17:05 RMA (Rec: 05/19/21 17:05 RMA [id number]) Nutrition Malnutrition Evidence of Malnutrition Exists Yes Malnutrition (severe): Acute Illness/Injury,Chronic Evidenced By Suboptimal Energy Intake ( Severe),Weight Loss (Severe) Intake Problem Inadequate Oral Intake Etiology related to issues chewing/ swallowing Signs/Symptoms as evidenced by followed by WRAPPING CHECKER and need for mechanically altered diet/thickened liquids Status Active Problem Clinical Problem Chronic Disease or Condition Related Malnutrition Etiology malnutrition in the context of acute on chronic disease related to inadequate oral intake, chewing/swallowing difficulty Signs/Symptoms as evidenced by wt loss 13% x past 1-2 weeks, PO meeting less than 50% estimated nutrition needs and BMI 17.3 Status Active Problem Recommendation Dietitian Recommendations/Changes Will change diet to regular/no added salt with consistency/ texture as per WRAPPING CHECKER--currently on pureed w/ nectar/mildly thick liquids. Will d/c edenilson. Will add magic cup and ensure pudding w/ meals as tolerated. May need to consider TF support if PO remains poor and wt continues to decline. Lab / Micro Data Result Diagrams: 05/20/21 05:55 05/20/21 05:55 Labs: Laboratory Results - last 24 hr 05/12/21 05:18: Amiodarone , Noramiodarone Not Reportable 05/20/21 05:55: WBC 14.2 H, RBC 3.72 L, Hgb 10.0 L, Hct 33.0 L, MCV 88.7, MCH 26.9 L, MCHC 30.3 L, RDW Std Deviation 60.9 H, RDW Coeff of Vick 18.6 H, Plt Count 227, MPV 9.6, Immature Gran % (Auto) 3.800 H, Neut % (Auto) 85.2 H, Lymph % (Auto) 3.9 L, [place] % (Auto) 2.8, Eos % (Auto) 3.8, Baso % (Auto) 0.5, Absolute Neuts (auto) 12.1 H, Absolute Lymphs (auto) 0.55 L, Nucleated RBC % 0, Dif ferential Comment SCANNED 05/20/21 05:55: Sodium 153 H, Potassium 3.5, Chloride 117 H, Carbon Dioxide 30.0, Anion Gap 6, BUN 53 H, Creatinine 1.38 H, Estim Creat Clear Calc 21.67, Est GFR (MDRD) Af Amer 47 L, Est GFR (MDRD) Non-Af 39 L, BUN/Creatinine Ratio 38.4 H, Glucose 109 H, Calcium 8.6 05/20/21 05:55: Phosphorus 3.7, Magnesium 2.5 Micro: Microbiology 05/11/21 22:20 Wound - Leg, Left Gram Stain - Final 05/11/21 22:20 Wound - Leg, Left Wound Culture - Final Meth. resistant Staph. aureus 05/12/21 00:35 Mucosa - Nasopharyngeal Respiratory Panel (PCR) - Final 05/11/21 16:15 Urine, Random Legionella Antigen - Final 05/11/21 16:15 Urine, Random Streptococcus pneumoniae Antigen (M - Final 05/11/21 19:14 Nasal Secretion SARS-CoV-2 Antigen (Rapid) - Final Physical Exam Const alert, oriented x3 and no apparent distress General Appearance: cooperative and on BiPAP HEENT normocephalic Mouth: dry mucous membranes Eyes PERRL, EOMs intact bilaterally and conjunctivae normal Neck supple and no JVD Resp Auscultation: rales bilateral base and diminished lung sounds; Negative for crackles, rhonchi or wheezes Cardio regular rate, regular rhythm, S1 normal heart sound and S2 normal heart sound Heart Sounds: murmur systolic IV/ harsh mid apex to carotid arteries GI soft to palpation, non-tender and non-distended; Negative for hepatosplenomegaly Extremity no clubbing, cyanosis or edema Skin Skin Narrative: Left lower extremity knee abrasion with surrounding erythema. Multiple ecchymotic areas noted. Neuro no focal motor deficits and no sensory deficits noted Psych affect normal Appearance: appropriate Charges/Coding Visit Charges Inpatient E&M: 90397 Subs Hosp L3
[2021-05-20] MEDS: Albuterol 2.5 MG/3 ML VIAL.NEB. INHALATION ×2 (07:08→18:55)
[2021-05-20] MEDS: Furosemide 20 MG/2 ML VIAL IV ×2 (07:39→17:03)
[2021-05-20] MEDS: Potassium Chloride 10mEq/100mL 10 MEQ/100 ML IV.SOLN. 100 MEQ IV BOLUS ×4 (07:41→11:44)
--- NOTE | 2021-05-20 09:33 | PCS.PANDOC ---
PANDEMIC DOCUMENTATION INITIATED: Date: 04/05/2021 Time: 190
[2021-05-20] MEDS: Aspirin E.C. 81 MG Tablet PO (10:09)
[2021-05-20] MEDS: Citalopram 10 MG Tablet PO (10:09)
[2021-05-20] MEDS: Amiodarone 200 MG Tablet PO (10:09)
[2021-05-20] MEDS: Heparin Injection (Vial) 5,000 UNIT/ML VIAL 5000 UNIT SC ×2 (10:10→21:17)
[2021-05-20] MEDS: Bisoprolol Fumarate 5 MG Tablet PO (10:10)
[2021-05-20] MEDS: Lisinopril 20 MG Tablet PO (10:10)
--- NOTE | 2021-05-20 10:33 | PN.HOSP_ITS ---
Subjective Subjective She is more alert today, had to wear BiPAP overnight. Creatinine did bump a little bit but her sodium is better Objective Data Objective Data Vital Signs: Vital Signs Temp Pulse Resp BP Pulse Ox 97.4 F L 75 26 H 152/67 H 90 05/20/21 09:51 05/20/21 09:51 05/20/21 09:51 05/20/21 09:51 05/20/21 09:51 Oxygen Flow Rate (L/min) 15 Oxygen Delivery Method Nasal Cannula Weight: 103 lb 6.4 oz Body Mass Index (BMI) 19.9 Intake & Output: Intake and Output for Last 24 Hours 05/19/21 05/20/21 05/21/21 03:59 03:59 03:59 Intake Total 2223.08 / 2223.08 2283.5 / 2283.5 250 / 250 Output Total 875 / 875 800 / 800 200 / 200 Balance 1348.08 / 1348.08 1483.5 / 1483.5 50 / 50 Medical Nutrition Assessment Dietitian: Malnutrition Criteria Met Start: 05/19/21 17:03 Freq: Status: Active Protocol: Document 05/19/21 17:05 RMA (Rec: 05/19/21 17:05 RMA [id number]) Nutrition Malnutrition Evidence of Malnutrition Exists Yes Malnutrition (severe): Acute Illness/Injury,Chronic Evidenced By Suboptimal Energy Intake ( Severe),Weight Loss (Severe) Intake Problem Inadequate Oral Intake Etiology related to issues chewing/ swallowing Signs/Symptoms as evidenced by followed by COMPONENT INSPECTOR and need for mechanically altered diet/thickened liquids Status Active Problem Clinical Problem Chronic Disease or Condition Related Malnutrition Etiology malnutrition in the context of acute on chronic disease related to inadequate oral intake, chewing/swallowing difficulty Signs/Symptoms as evidenced by wt loss 13% x past 1-2 weeks, PO meeting less than 50% estimated nutrition needs and BMI 17.3 Status Active Problem Recommendation Dietitian Recommendations/Changes Will change diet to regular/no added salt with consistency/ texture as per COMPONENT INSPECTOR--currently on pureed w/ nectar/mildly thick liquids. Will d/c edenilson. Will add magic cup and ensure pudding w/ meals as tolerated. May need to consider TF support if PO remains poor and wt continues to decline. Lab / Micro Data Result Diagrams: 05/20/21 05:55 05/20/21 05:55 Labs: Laboratory Results - last 24 hr 05/12/21 05:18: Amiodarone , Noramiodarone Not Reportable 05/20/21 05:55: WBC 14.2 H, RBC 3.72 L, Hgb 10.0 L, Hct 33.0 L, MCV 88.7, MCH 26.9 L, MCHC 30.3 L, RDW Std Deviation 60.9 H, RDW Coeff of Vick 18.6 H, Plt Count 227, MPV 9.6, Immature Gran % (Auto) 3.800 H, Neut % (Auto) 85.2 H, Lymph % (Auto) 3.9 L, [place] % (Auto) 2.8, Eos % (Auto) 3.8, Baso % (Auto) 0.5, Absolute Neuts (auto) 12.1 H, Absolute Lymphs (auto) 0.55 L, Nucleated RBC % 0, Diffe rential Comment SCANNED 05/20/21 05:55: Sodium 153 H, Potassium 3.5, Chloride 117 H, Carbon Dioxide 30.0, Anion Gap 6, BUN 53 H, Creatinine 1.38 H, Estim Creat Clear Calc 21.67, Est GFR (MDRD) Af Amer 47 L, Est GFR (MDRD) Non-Af 39 L, BUN/Creatinine Ratio 38.4 H, Glucose 109 H, Calcium 8.6 05/20/21 05:55: Phosphorus 3.7, Magnesium 2.5 Micro: Microbiology 05/11/21 22:20 Wound - Leg, Left Gram Stain - Final 05/11/21 22:20 Wound - Leg, Left Wound Culture - Final Meth. resistant Staph. aureus 05/12/21 00:35 Mucosa - Nasopharyngeal Respiratory Panel (PCR) - Final 05/11/21 16:15 Urine, Random Legionella Antigen - Final 05/11/21 16:15 Urine, Random Streptococcus pneumoniae Antigen (M - Final 05/11/21 19:14 Nasal Secretion SARS-CoV-2 Antigen (Rapid) - Final Physical Exam Const alert, oriented x3 and no apparent distress General Appearance: cooperative HEENT normocephalic and moist oral mucous membranes Eyes PERRL, EOMs intact bilaterally and conjunctivae normal Neck supple and no JVD Resp normal respiratory effort, no retractions and no use of accessory muscles Auscultation: crackles and diminished lung sounds; Negative for rales, rhonchi or wheezes Cardio regular rate, regular rhythm, S1 normal heart sound and S2 normal heart sound Heart Sounds: murmur systolic II/ GI soft to palpation, non-tender and non-distended; Negative for hepatosplenomegaly Extremity no clubbing, cyanosis or edema Skin no rashes or lesions noted Skin Narrative: Left lower extremity knee abrasion with surrounding erythema Neuro no focal motor deficits and no sensory deficits noted Psych affect normal Appearance: appropriate Assessment & Plan Assessment/Plan (1) Encephalopathy: (2) Cellulitis: QUALIFIERS: Site of cellulitis: extremity Site of cellulitis of extremity: lower extremity Laterality: left Qualified Code(s): L03.116 - Cellulitis of left lower limb (3) Community acquired pneumonia: PLAN: 1. Acute hypoxic respiratory failure secondary to community-acquired pneumonia versus diastolic CHF/metabolic encephalopathy -Echo stage I diastolic dysfunction with normal ejection fraction moderate aortic stenosis and pulmonary artery systolic pressure 44 mmHg -Continue with D5W as his sodium has improved, however will add Lasix as well as her creatinine has worsened with fluids indicative of cardiac source -Continue with Zosyn and vancomycin for her MRSA wound as well as for possible community-acquired pneumonia -Wean oxygen as able, will likely need BiPAP at night while sleeping -Confusion appears to be improved -Given increased oxygen requirements, will obtain a chest x-ray and consult pulmonology for assistance 2. Left lower extremity cellulitis -MRSA growing from the wound, will continue vancomycin -Infectious disease was consulted not feel that she had an infected leg 3. HTN/HLD/possibly acute on chronic diastolic CHF/moderate aortic stenosis -She had a TAVR done down in [place] a year and a half ago -Continue with home amiodarone as well as Lipitor, and lisinopril -She has been off of her blood pressure medications for the last several days secondary to n.p.o. status -Increase her beta-yesenia and monitor her heart rate. 4. Hypothyroidism -Stable -Continue with Synthroid 5. Anxiety/depression -Stable -Continue escitalopram DVT: Heparin Charges/Coding Visit Charges Inpatient E&M: 12353 Subs Hosp L2
[2021-05-20] MEDS: Vancomycin IV 1,000 MG/200 ML BAG 200 MG IV (11:44)
--- NOTE | 2021-05-20 12:40 | PHA.PHARE_ITS ---
Consult Pharmacy has been consulted to manage selected antiobiotic: Vancomycin Type of Consult: Follow-up Labs: Sodium 153 mmol/L (136-145) H 05/20/21 05:55 Potassium 3.5 mmol/L (3.5-5.1) 05/20/21 05:55 Chloride 117 mmol/L (98-107) H 05/20/21 05:55 Carbon Dioxide 30.0 mmol/L (21.0-32.0) 05/20/21 05:55 Anion Gap 6 (5-15) 05/20/21 05:55 BUN 53 mg/dL (7-18) H 05/20/21 05:55 Creatinine 1.38 mg/dL (0.55-1.02) H 05/20/21 05:55 Est GFR (MDRD) Af Amer 47 mL/min (>60) L 05/20/21 05:55 Est GFR (MDRD) Non-Af 39 mL/min (>60) L 05/20/21 05:55 BUN/Creatinine Ratio 38.4 RATIO (10-20) H 05/20/21 05:55 Glucose 109 mg/dL (74-106) H 05/20/21 05:55 Vancomycin Trough 10.9 ug/mL (5.0-15.0) 05/17/21 11:30 Microbiology: Microbiology 05/11/21 22:20 Wound - Leg, Left Gram Stain - Final 05/11/21 22:20 Wound - Leg, Left Wound Culture - Final Meth. resistant Staph. aureus 05/12/21 00:35 Mucosa - Nasopharyngeal Respiratory Panel (PCR) - Final 05/11/21 16:15 Urine, Random Legionella Antigen - Final 05/11/21 16:15 Urine, Random Streptococcus pneumoniae Antigen (M - Final 05/11/21 19:14 Nasal Secretion SARS-CoV-2 Antigen (Rapid) - Final Goal Trough: 15-20 mcg/mL Pharmacy Plan for Drug Dosing: DAILY ASSESSMENT Current Vancomcyin Dose: 1000mg q24h (1200) Number of Doses Received: Current Renal Function: SrCr 1.38 Renal Function Trend: SrCr currently increasing Lab/Micro: Any Change in Vanc Plan: Vancomycin trough level was missed accidentally. R ecommend continuing current dose and checking trough level 05/21/21 at 1130 Pending Level: 05/21/21at 1130 Pharmacy Service will continue to monitor and adjust dosing as required. Follow-Up Labs: Trough Vancomycin - 05/21/21 at 1130
[2021-05-20] MEDS: Sodium Chloride 0.65% 1 SPRAY SPRAY.BTL NASAL (13:02)
--- NOTE | 2021-05-20 15:07 | CASEMGMT ---
Social Work Extensive conversation with both of pt daughter's Evy and Odalys. Daughter's are contemplating care goals for pt as Evy states pt has stated she is tired and is ready to let nature take its course. SW provided information on discharge options including Inpatient hospice unit, home with hospice, prison with hospice care. Family also inquiring about rehabilitation. SW informed family that [facility] has accepted pt and if pt wanted, we could attempt for precert for rehab and then if pt does not tolerate this, she can transition to [facility] care with hospice. ART emphasized with family that pt wishes should drive decisions of care and dgts are agreeable. Emotional support provided. Family to talk with pt and consider options and make decisions. ART will continue to follow. DAVON Serrano
[2021-05-20] MEDS: LORazepam 0.5 MG Tablet PO (21:13)
[2021-05-20] MEDS: Lisinopril 10 MG Tablet PO (21:13)
[2021-05-20] MEDS: Atorvastatin Calcium 80 MG Tablet PO (21:14)
[2021-05-21] VITALS (9 sets, daily range): BP systolic 95–142; BP diastolic 64–85; PULSE 77–84; RESP 12–33; TEMP 36.5–36.8; O2SAT 85–94
[2021-05-21] MEDS: Menthol/Lanolin/Calamine/Znox 113 GM Tube 1 APPLIC TOPICAL ×2 (06:11→15:27)
[2021-05-21] MEDS: Levothyroxine 50 MCG Tablet PO (06:12)
[2021-05-21 06:16] LABS: Absolute Lymphocyte Count 0.64 X10^3/uL (0.83-4.51); Absolute Neutrophil Count 12.4 X10^3/uL (2.0-7.7); Basophil# 0.06 X10^3/uL; Basophil% 0.4 % (0-1); Eosinophil# 0.58 X10^3/uL; Eosinophils% 3.9 % (0-5); Hematocrit 32.5 % (37-47); Lymphocyte # 0.64 X10^3/ul (0.83-4.51); Lymphocyte % 4.3 % (19-41); Mean Corp Hgb Conc 30.8 g/dL (32-36); Mean Corpuscular Volume 87.6 fL (81-99); Mean Platelet Vol. 9.6 fl (6.2-12.0); Monocyte# 0.51 X10^3/uL; Monocyte% 3.4 % (0-10); NRBC Flagged by Analyzer 0 % (0-5); Neutrophil # 12.37 X10^3/uL (2.7-7.7); Neutrophil % 83.4 % (47-70); Platelet Count 232 K/mm3 (150-450); RBC Distribution Width CV 18.9 % (11.6-14.6); RBC Distribution Width SD 60.4 fl (35.1-43.9); Red Blood Count 3.71 M/mm3 (4.2-5.4); White Blood Count 14.8 K/mm3 (4.4-11.0)
[2021-05-21 06:42] LABS: Anion Gap 5 (5-15); BUN 48 mg/dL (7-18); BUN/Creat Ratio 32.7 RATIO (10-20); Calcium,Total 8.6 mg/dL (8.5-10.1); Chloride 118 mmol/L (98-107); Creatinine, Serum 1.47 mg/dL (0.55-1.02); EST Glomerular Filtration Rate 36 mL/min (>60); Est Glom Filt Rate - Afr Amer 43 mL/min (>60); Estimated Creatinine Clearance 20.25 ml/min; Glucose 102 mg/dL (74-106); Potassium 3.3 mmol/L (3.5-5.1); Sodium Level 153 mmol/L (136-145)
[2021-05-21] MEDS: Albuterol 2.5 MG/3 ML VIAL.NEB. INHALATION (06:58)
--- NOTE | 2021-05-21 07:24 | PCM.PN.INT ---
Assessment & Plan Assessment/Plan (1) Acute respiratory failure with hypoxia: (2) Pulmonary hypertension: (3) Encephalopathy: PLAN: RECOMMENDATIONS: 1. Continue beta-yesenia and amiodarone 2. Gentle diuretic therapy. Hold IV fluids 3. Wean oxygen as tolerated 4. Aggressive potassium repletion 5. Discontinue lisinopril IMPRESSIONS: 1. Acute hypoxic respiratory failure Unclear etiology at this time. Clinical suspicion for an element of cor pulmonale secondary to aortic stenosis and type II pulmonary hypertension related to diastolic dysfunction. Heart rate is well controlled at this time. Continue with other baseline medications for now. Will attempt gentle diuresis. Elevated chloride will lead to increased pulmonary demand and worsening mechanics. 2. Nonanion gap metabolic acidosis secondary to hyperchloremia/acute kidney injury Clinical suspicion for development secondary to aggressive diuretic therapy. Hold IV fluids. Patient would ideally be taking p.o. water for normalization. However, given respiratory status patient will be placed on IV Lasix. Elevation in creatinine may be secondary to decreased perfusion secondary to elevated Starling forces. We will hold TEREZA inhibitor 3. Left lower extremity cellulitis Patient does have inflammation of the left lower extremity. Patient was significantly low oncotic pressure complicating fluid management. Patient has grown MRSA from the wound. Defer to infectious disease. 4. Advanced age/hypertension/hyperlipidemia/moderate /hypothyroidism/anxiety/depression Complicates care, management, recovery and prognosis. Could consider cardiology evaluation for comparison of echocardiogram results. Clinical suspicion is that patient will benefit from rate control. Beta-yesenia will be continued. This should be transitioned to IV if patient is unable to take p.o. Patient does have IV access at this time Subjective Subjective Patient feels subjectively improved compared to previous. Patient did not require BiPAP rescue overnight. Patient is not reporting any chest pain. Objective Data Objective Data Vital Signs: Vital Signs Temp Pulse Resp BP Pulse Ox 36.6 C 80 24 H 142/85 H 88 05/21/21 03:30 05/21/21 06:59 05/21/21 06:59 05/21/21 03:30 05/21/21 06:59 Oxygen Flow Rate (L/min) 15 Oxygen Delivery Method Non-Rebreather Weight: 46.7 kg Body Mass Index (BMI) 19.9 Intake & Output: Intake and Output for Last 24 Hours 05/19/21 05/20/21 05/21/21 23:59 23:59 23:59 Intake Total 2383.5 / 2383.5 1150 / 1275 175 / 175 Output Total 850 / 850 1000 / 1500 750 / 750 Balance 1533.5 / 1533.5 150 / -225 -575 / -575 Medical Nutrition Assessment Dietitian: Malnutrition Criteria Met Start: 05/19/21 17:03 Freq: Status: Active Protocol: Document 05/19/21 17:05 RMA (Rec: 05/19/21 17:05 RMA [id number]) Nutrition Malnutrition Evidence of Malnutrition Exists Yes Malnutrition (severe): Acute Illness/Injury,Chronic Evidenced By Suboptimal Energy Intake ( Severe),Weight Loss (Severe) Intake Problem Inadequate Oral Intake Etiology related to issues chewing/ swallowing Signs/Symptoms as evidenced by followed by VETERINARY MEDICINE SCIENTIST and need for mechanically altered diet/thickened liquids Status Active Problem Clinical Problem Chronic Disease or Condition Related Malnutrition Etiology malnutrition in the context of acute on chronic disease related to inadequate oral intake, chewing/swallowing difficulty Signs/Symptoms as evidenced by wt loss 13% x past 1-2 weeks, PO meeting less than 50% estimated nutrition needs and BMI 17.3 Status Active Problem Recommendation Dietitian Recommendations/Changes Will change diet to regular/no added salt with consistency/ texture as per VETERINARY MEDICINE SCIENTIST--currently on pureed w/ nectar/mildly thick liquids. Will d/c edenilson. Will add magic cup and ensure pudding w/ meals as tolerated. May need to consider TF support if PO remains poor and wt continues to decline. Lab / Micro Data Result Diagrams: 05/21/21 05:50 05/21/21 05:50 Labs: Laboratory Results - last 24 hr 05/21/21 05:50: WBC 14.8 H, RBC 3.71 L, Hgb 10.0 L, Hct 32.5 L, MCV 87.6, MCH 27.0, MCHC 30.8 L, RDW Std Deviation 60.4 H, RDW Coeff of Vick 18.9 H, Plt Count 232, MPV 9.6, Immature Gran % (Auto) 4.600 H, Neut % (Auto) 83.4 H, Lymph % (Auto) 4.3 L, [place] % (Auto) 3.4, Eos % (Auto) 3.9, Baso % (Auto) 0.4, Absolute Neuts (auto) 12.4 H, Absolute Lymphs (auto) 0.64 L, Nucleated RBC % 0 05/21/21 05:50: Sodium 153 H, Potassium 3.3 L, Chloride 118 H, Carbon Dioxide 30.0, Anion Gap 5, BUN 48 H, Creatinine 1.47 H, Estim Creat Clear Calc 20.25, Est GFR (MDRD) Af Amer 43 L, Est GFR (MDRD) Non-Af 36 L, BUN/Creatinine Ratio 32.7 H, Glucose 102, Calcium 8.6 Micro: Microbiology 05/11/21 22:20 Wound - Leg, Left Gram Stain - Final 05/11/21 22:20 Wound - Leg, Left Wound Culture - Final Meth. resistant Staph. aureus 05/12/21 00:35 Mucosa - Nasopharyngeal Respiratory Panel (PCR) - Final 05/11/21 16:15 Urine, Random Legionella Antigen - Final 05/11/21 16:15 Urine, Random Streptococcus pneumoniae Antigen (M - Final 05/11/21 19:14 Nasal Secretion SARS-CoV-2 Antigen (Rapid) - Final Physical Exam Const alert, oriented x3 and no apparent distress General Appearance: cooperative and on BiPAP HEENT normocephalic Mouth: dry mucous membranes Eyes PERRL, EOMs intact bilaterally and conjunctivae normal Neck supple and no JVD Resp Auscultation: rales bilateral base and diminished lung sounds; Negative for crackles, rhonchi or wheezes Cardio regular rate, regular rhythm, S1 normal heart sound and S2 normal heart sound Heart Sounds: murmur systolic IV/ harsh mid apex to carotid arteries GI soft to palpation, non-tender and non-distended; Negative for hepatosplenomegaly Extremity no clubbing, cyanosis or edema Skin Skin Narrative: Left lower extremity knee abrasion with surrounding erythema. Multiple ecchymotic areas noted. Neuro no focal motor deficits and no sensory deficits noted Psych affect normal Appearance: appropriate Charges/Coding Visit Charges Inpatient E&M: 06947 Subs Hosp L3
[2021-05-21] MEDS: Furosemide 20 MG/2 ML VIAL IV (07:47)
[2021-05-21] MEDS: 0.9% Saline Lock 10 ML Syringe IV ×2 (07:50→16:33)
--- NOTE | 2021-05-21 08:48 | PCM.PN.HOSP ---
Subjective Subjective Rest respiratory status has declined, she has difficulty maintaining her oxygen sats on BiPAP. Her IV fluids were discontinued yesterday and she continues to be short of breath. Her creatinine has climbed, and yesterday she told her daughter that she did not want to continue with any therapies or interventions. Objective Data Objective Data Vital Signs: Vital Signs Temp Pulse Resp BP Pulse Ox 97.8 F 80 32 H 142/85 H 85 05/21/21 03:30 05/21/21 06:59 05/21/21 08:22 05/21/21 03:30 05/21/21 08:22 Oxygen Flow Rate (L/min) 15 Oxygen Delivery Method Bi-pap Weight: 102 lb 15.294 oz Body Mass Index (BMI) 19.9 Intake & Output: Intake and Output for Last 24 Hours 05/20/21 05/21/21 05/22/21 03:59 03:59 03:59 Intake Total 2283.5 / 2283.5 1275 / 1275 Output Total 800 / 800 1350 / 1350 250 / 250 Balance 1483.5 / 1483.5 -75 / -75 -250 / -250 Medical Nutrition Assessment Dietitian: Malnutrition Criteria Met Start: 05/19/21 17:03 Freq: Status: Active Protocol: Document 05/19/21 17:05 RMA (Rec: 05/19/21 17:05 RMA [id number]) Nutrition Malnutrition Evidence of Malnutrition Exists Yes Malnutrition (severe): Acute Illness/Injury,Chronic Evidenced By Suboptimal Energy Intake ( Severe),Weight Loss (Severe) Intake Problem Inadequate Oral Intake Etiology related to issues chewing/ swallowing Signs/Symptoms as evidenced by followed by HYDRAULIC SPINNER and need for mechanically altered diet/thickened liquids Status Active Problem Clinical Problem Chronic Disease or Condition Related Malnutrition Etiology malnutrition in the context of acute on chronic disease related to inadequate oral intake, chewing/swallowing difficulty Signs/Symptoms as evidenced by wt loss 13% x past 1-2 weeks, PO meeting less than 50% estimated nutrition needs and BMI 17.3 Status Active Problem Recommendation Dietitian Recommendations/Changes Will change diet to regular/no added salt with consistency/ texture as per HYDRAULIC SPINNER--currently on pureed w/ nectar/mildly thick liquids. Will d/c edenilson. Will add magic cup and ensure pudding w/ meals as tolerated. May need to consider TF support if PO remains poor and wt continues to decline. Lab / Micro Data Result Diagrams: 05/21/21 05:50 05/21/21 05:50 Labs: Laboratory Results - last 24 hr 05/21/21 05:50: WBC 14.8 H, RBC 3.71 L, Hgb 10.0 L, Hct 32.5 L, MCV 87.6, MCH 27.0, MCHC 30.8 L, RDW Std Deviation 60.4 H, RDW Coeff of Vick 18.9 H, Plt Count 232, MPV 9.6, Immature Gran % (Auto) 4.600 H, Neut % (Auto) 83.4 H, Lymph % (Auto) 4.3 L, [place] % (Auto) 3.4, Eos % (Auto) 3.9, Baso % (Auto) 0.4, Absolute Neuts (auto) 12.4 H, Absolute Lymphs (auto) 0.64 L, Nucleated RBC % 0 05/21/21 05:50: Sodium 153 H, Potassium 3.3 L, Chloride 118 H, Carbon Dioxide 30.0, Anion Gap 5, BUN 48 H, Creatinine 1.47 H, Estim Creat Clear Calc 20.25, Est GFR (MDRD) Af Amer 43 L, Est GFR (MDRD) Non-Af 36 L, BUN/Creatinine Ratio 32.7 H, Glucose 102, Calcium 8.6 Micro: Microbiology 05/11/21 22:20 Wound - Leg, Left Gram Stain - Final 05/11/21 22:20 Wound - Leg, Left Wound Culture - Final Meth. resistant Staph. aureus 05/12/21 00:35 Mucosa - Nasopharyngeal Respiratory Panel (PCR) - Final 05/11/21 16:15 Urine, Random Legionella Antigen - Final 05/11/21 16:15 Urine, Random Streptococcus pneumoniae Antigen (M - Final 05/11/21 19:14 Nasal Secretion SARS-CoV-2 Antigen (Rapid) - Final Physical Exam Const alert and oriented x3 Constitutional Narrative: Mild respiratory distress General Appearance: cooperative HEENT normocephalic and moist oral mucous membranes Eyes PERRL, EOMs intact bilaterally and conjunctivae normal Neck supple and no JVD Resp no retractions Effort and Inspection: respiratory distress and labored Auscultation: crackles and diminished lung sounds; Negative for rales, rhonchi or wheezes Cardio regular rate, regular rhythm, S1 normal heart sound and S2 normal heart sound Heart Sounds: murmur systolic III/ GI soft to palpation, non-tender and non-distended; Negative for hepatosplenomegaly Extremity no clubbing, cyanosis or edema Skin no rashes or lesions noted Skin Narrative: Left lower extremity knee abrasion with surrounding erythema Neuro no focal motor deficits and no sensory deficits noted Psych affect normal Appearance: appropriate Assessment & Plan Assessment/Plan (1) Encephalopathy: (2) Cellulitis: QUALIFIERS: Laterality: left Site of cellulitis: extremity Site of cellulitis of extremity: lower extremity Qualified Code(s): L03.116 - Cellulitis of left lower limb (3) Community acquired pneumonia: PLAN: 1. Acute hypoxic respiratory failure secondary to community-acquired pneumonia versus diastolic CHF/metabolic encephalopathy -Echo stage I diastolic dysfunction with normal ejection fraction moderate aortic stenosis and pulmonary artery systolic pressure 44 mmHg -D5W was discontinued, continue with Lasix for now for comfort -Antibiotics will be discontinued -Wean oxygen as able, will likely need BiPAP at night while sleeping -Confusion appears to be improved -Given increased oxygen requirements, will obtain a chest x-ray and consult pulmonology for assistance -Had a 20-minute discussion with both daughters about advanced care planning, the patient is a DNR CCA does not want intubation, initially she wanted to pursue possible heart evaluation with valve placement however ultimately her to attempt to get her transferred to outside hospitals and there is no bed availability, they elected to proceed with hospice. 2. Left lower extremity cellulitis -MRSA growing from the wound, will continue vancomycin -Infectious disease was consulted not feel that she had an infected leg 3. HTN/HLD/possibly acute on chronic diastolic CHF/moderate aortic stenosis -She had a TAVR done down in [place] a year and a half ago -Continue with home amiodarone as well as Lipitor, and lisinopril -She has been off of her blood pressure medications for the last several days secondary to n.p.o. status -Increase her beta-yesenia and monitor her heart rate. 4. Hypothyroidism -Stable -Continue with Synthroid 5. Anxiety/depression -Stable -Continue escitalopram DVT: Heparin Charges/Coding Visit Charges Inpatient E&M: 66716 Subs Hosp L2 Procedures Hospitalists Procedures: 38878 Advncd Care Plan 30 Min
[2021-05-21] MEDS: LORazepam 0.5 MG Tablet PO ×2 (09:11→18:14)
[2021-05-21] MEDS: Heparin Injection (Vial) 5,000 UNIT/ML VIAL 5000 UNIT SC (09:14)
--- NOTE | 2021-05-21 12:59 | CASEMGMT ---
Social Work Per nursing, pt is declining and family is choosing hospice care at this time and would prefer the inpatient hospice unit. Referral made to Evelyne at [facility] and clinicals faxed. Evelyne states she will review information and call pt daughters to set up meeting time. ART met with pt's daughters and explained hospice procedure and that they could expect a call from Evelyne. Emotional support provided. ART will continue to follow. DAVON Serrano
--- NOTE | 2021-05-21 13:45 | CASEMGMT ---
Addendum entered by Rhiannon Beasley 05/21/21 14:57: Social Work Nohemi Danielsmikala at [facility] states she has spoke with family and is requesting Doctor to Doctor phone call for admission to IPU. Dr. Laurent notified. DAVON Serrano Original Note: Social Work Return call from Evelyne at [facility] and Nila will meet with pt and family at 2:00 to assess for appropriatness for IPU. Nursing updated. DAVON Serrano
--- NOTE | 2021-05-21 16:05 | CASEMGMT ---
Social Work Pt has been accepted to [facility]. SW notified pt dgt Evy and emotional support provided. Nursing is aware and will set up transport when discharge orders are complete. DAVON Serrano
--- NOTE | 2021-05-21 16:09 | PCM.DC.SUM ---
Providers Date of Admission: 05/11/21 Primary Care Physician: Dr. Randi Milian MD Consultations 05/11/21 21:09 Consult: Onc/Wound/agricultural science professor Routine Comment: 05/12/21 15:33 Consult: Infectious Disease Routine Consulting Provider: Agustin Jimenez Reason for Consult: ?pneumonia; cellulitis EMERGENT Consult: No MD Notified: Yes Date Notified: 05/12/21 Time Notified: 15:33 Method of Notification: Answering Service 05/18/21 10:41 Consult: [place] / Pulmonary Medicine Routine Consulting Provider: Basil Miller Reason for Consult: Increasing oxygen requriement EMERGENT Consult: No MD Notified: Yes Date Notified: 05/18/21 Time Notified: 10:42 Method of Notification: Text 05/21/21 12:19 Consult: Hospice / Palliative Care Routine Consulting Provider: [facility] Reason for Consult: end of life care EMERGENT Consult: No MD Notified: Yes Date Notified: 05/21/21 Time Notified: 12:19 Method of Notification: Rhiannon SW notified Reason For Visit: LLE CELLULITIS ? PNA FALLS FTT ADULT Diagnosis Discharge Diagnosis (1) Encephalopathy: Status: Acute Code(s): G93.40 - Encephalopathy, unspecified (2) Cellulitis: Status: Acute Code(s): L03.90 - Cellulitis, unspecified Qualifiers: Site of cellulitis: extremity Site of cellulitis of extremity: lower extremity Laterality: left Qualified Code(s): L03.116 - Cellulitis of left lower limb (3) Community acquired pneumonia: Status: Acute Code(s): J18.9 - Pneumonia, unspecified organism Medications at Discharge Home Medications amiodarone 200 mg PO DAILY 04/30/21 atorvastatin 80 mg PO DAILY 04/30/21 bisoprolol fumarate 2.5 mg PO DAILY 04/30/21 bumetanide 1 mg PO DAILY 04/30/21 citalopram 10 mg PO DAILY 04/30/21 levothyroxine 50 mcg PO DAILY 04/30/21 lisinopril 20 mg PO DAILY 04/30/21 amoxicillin-pot clavulanate [Augmentin] 1 tab PO Q12H 7 Days #14 tab 05/07/21 aspirin [Aspirin Low-Strength] 81 mg PO DAILY 05/11/21 lisinopril 10 mg PO QHS 05/11/21 potassium chloride 20 meq PO DAILY 05/11/21 tramadol 200 mg PO TID PRN 05/11/21 Hospital Course Operations None Procedures 2-D Echocardiogram Summary of Care Provided Minutes Spent on Discharge: 60 Hospital Course: Per HPI: The patient is an 86 y/o F w/ PMHx: CKD stage III unclear subtype, Chronic BL LE Lymphedema w/ Chronic LE wounds following with Wound Care (R lateral calf ulcer, L forearm skin tear, recent L knee skin tear, medial LLE wound), PVD, HTN, HLD, Anxiety and Depression, Hypothyroidism, Hx BL renal stents, Aortic valve replacement (TAVR), PAF (suspect likely not anticoagulated secondary to Hx RLE hematoma which required surgery) with recent Hx of moving from [place] to [place], living with her daughter who presents to the [facility] ED on 05/11/21 secondary to history of increased fatigue, malaise, frequent falls over the last 48 hours and mild confusion as well as poor oral intake with no recent fever, chills, nausea, emesis, abdominal pain, N/V/D, cough or marked dyspnea. Daughter does report she has had recent difficulty with large pills otherwise no history of difficulty with secretions or food intake. She was recently started on augmentin as she was scratched by her cat around the time of these symptoms additionally; however, she has continued to have them unchanged. Work-up in the ED included T 97.8, heart rate 82, BP initially upon presentation 204/81 with repeat 184/64, respiratory rate 16, 93 to 95% on room air, CBC with WC 15.1, hemoglobin 12, platelet 231 with left shift and lymphopenia, BMP with BUN/creatinine 24/1.06, high-sensitivity troponin XX 3, total creatinine kinase 60, urinalysis with specific gravity 1.010, urine occult blood 25 otherwise no obvious evidence of acute UTI, CT abdomen pelvis with bilateral pleural effusions with bilateral lower lobe atelectasis or developing pneumonia with no acute abnormality in the abdomen or pelvis otherwise, chest x-ray with streaky opacity left lung base possibly infectious, CT of the head with no acute intracranial abnormality with underlying senescent changes with small vessel ischemia. In the ED patient administered IV Rocephin and azithromycin. Hospital Course: 1. Acute hypoxic respiratory failure secondary to community-acquired pneumonia versus diastolic CHF and pulmonary hypertension/metabolic encephalopathy -Echo stage I diastolic dysfunction with normal ejection fraction moderate aortic stenosis and pulmonary artery systolic pressure 44 mmHg -D5W was discontinued, continue with Lasix for now for comfort -Antibiotics will be discontinued -Wean oxygen as able, will likely need BiPAP at night while sleeping -Confusion appears to be improved -Given increased oxygen requirements, will obtain a chest x-ray and consult pulmonology for assistance -Had a 20-minute discussion with both daughters about advanced care planning, the patient is a DNR CCA does not want intubation, initially she wanted to pursue possible heart evaluation with valve placement however ultimately her to attempt to get her transferred to outside hospitals and there is no bed availability, they elected to proceed with hospice. 2. Left lower extremity cellulitis -MRSA growing from the wound, will continue vancomycin -Infectious disease was consulted does not feel that she had an infected leg 3. HTN/HLD/possibly acute on chronic diastolic CHF/moderate aortic stenosis -She had a TAVR done down in [place] a year and a half ago -Continue with home amiodarone as well as Lipitor, and lisinopril -She has been off of her blood pressure medications for the last several days secondary to n.p.o. status -Increase her beta-yesenia and monitor her heart rate. 4. Hypothyroidism -Stable -Continue with Synthroid 5. Anxiety/depression -Stable -Continue escitalopram Medical Records Data Medical Nutrition Assessment Dietitian: Malnutrition Criteria Met Start: 05/19/21 17:03 Freq: Status: Active Protocol: Document 05/19/21 17:05 RMA (Rec: 05/19/21 17:05 RMA [id number]) Nutrition Malnutrition Evidence of Malnutrition Exists Yes Malnutrition (severe): Acute Illness/Injury,Chronic Evidenced By Suboptimal Energy Intake ( Severe),Weight Loss (Severe) Intake Problem Inadequate Oral Intake Etiology related to issues chewing/ swallowing Signs/Symptoms as evidenced by followed by MANAGER OF BUSINESS OPERATIONS and need for mechanically altered diet/thickened liquids Status Active Problem Clinical Problem Chronic Disease or Condition Related Malnutrition Etiology malnutrition in the context of acute on chronic disease related to inadequate oral intake, chewing/swallowing difficulty Signs/Symptoms as evidenced by wt loss 13% x past 1-2 weeks, PO meeting less than 50% estimated nutrition needs and BMI 17.3 Status Active Problem Recommendation Dietitian Recommendations/Changes Will change diet to regular/no added salt with consistency/ texture as per MANAGER OF BUSINESS OPERATIONS--currently on pureed w/ nectar/mildly thick liquids. Will d/c edenilson. Will add magic cup and ensure pudding w/ meals as tolerated. May need to consider TF support if PO remains poor and wt continues to decline. Weight / BMI Weight Weight: 102 lb 15.294 oz Body Mass Index (BMI) 19.9 ABG / Lab / Microbiology Data Result Diagrams: 05/21/21 05:50 05/21/21 05:50 Laboratory: Laboratory Results - last 24 hr 05/21/21 05:50: WBC 14.8 H, RBC 3.71 L, Hgb 10.0 L, Hct 32.5 L, MCV 87.6, MCH 27.0, MCHC 30.8 L, RDW Std Deviation 60.4 H, RDW Coeff of Vick 18.9 H, Plt Count 232, MPV 9.6, Immature Gran % (Auto) 4.600 H, Neut % (Auto) 83.4 H, Lymph % (Auto) 4.3 L, [place] % (Auto) 3.4, Eos % (Auto) 3.9, Baso % (Auto) 0.4, Absolute Neuts (auto) 12.4 H, Absolute Lymphs (auto) 0.64 L, Nucleated RBC % 0 05/21/21 05:50: Sodium 153 H, Potassium 3.3 L, Chloride 118 H, Carbon Dioxide 30.0, Anion Gap 5, BUN 48 H, Creatinine 1.47 H, Estim Creat Clear Calc 20.25, Est GFR (MDRD) Af Amer 43 L, Est GFR (MDRD) Non-Af 36 L, BUN/Creatinine Ratio 32.7 H, Glucose 102, Calcium 8.6 05/21/21 11:30: Vancomycin Trough Cancelled Microbiology: Microbiology 05/11/21 22:20 Wound - Leg, Left Gram Stain - Final 05/11/21 22:20 Wound - Leg, Left Wound Culture - Final Meth. resistant Staph. aureus 05/12/21 00:35 Mucosa - Nasopharyngeal Respiratory Panel (PCR) - Final 05/11/21 16:15 Urine, Random Legionella Antigen - Final 05/11/21 16:15 Urine, Random Streptococcus pneumoniae Antigen (M - Final 05/11/21 19:14 Nasal Secretion SARS-CoV-2 Antigen (Rapid) - Final Meaningful Use Info Meaningful Use Diagnoses (Choose all that apply): None applicable Discharge Plan Admission Admit Date/Time: 05/11/21 20:45 Attending Provider: Dustin Laurent Primary Care Provider: Randi Milian Consulting Providers: Agustin Jimenez ; Basil Miller ; Jeimy Villanueva ; Yimi Unger ; Marie Blake ; Liudmila Armstrong ; Betsy Lawton ; Medina Collazo LAY OUT WORKER Discharge Orders/Prescriptions Prescriptions: No Action lisinopril 20 mg Tablet 20 mg PO DAILY RF: 0 citalopram 10 mg Tablet 10 mg PO DAILY RF: 0 amiodarone 200 mg Tablet 200 mg PO DAILY RF: 0 bumetanide 1 mg Tablet 1 mg PO DAILY RF: 0 atorvastatin 80 mg Tablet 80 mg PO DAILY RF: 0 bisoprolol fumarate 5 mg Tablet 2.5 mg PO DAILY RF: 0 levothyroxine 50 mcg Tablet 50 mcg PO DAILY RF: 0 amoxicillin-pot clavulanate [Augmentin] 875-125 mg tablet 1 tab PO Q12H 7 Days Qty: 14 RF: 0 potassium chloride 20 mEq Packet 20 meq PO DAILY RF: 0 lisinopril 10 mg Tablet 10 mg PO QHS RF: 0 tramadol 100 mg Tablet 200 mg PO TID PRN (Reason: Pain) RF: 0 aspirin [Aspirin Low-Strength] 81 mg Tablet,Delayed Release (Dr/Ec) 81 mg PO DAILY RF: 0 Referrals / Follow Up: Randi Milian MD [Primary Care Provider] - Disposition Disposition (needs filled in before D/C Order can be placed): Hospice in Medical Facility Charges/Coding Visit Charges Inpatient E&M: 00056 Disch Hosp
--- NOTE | 2021-05-21 16:14 | PCM.PN.ID ---
Physical Exam Narrative More awake today, feeling ok, pt and family discussing hospice Const no apparent distress General Appearance: cooperative Resp Auscultation: diminished lung sounds Cardio Rate: tachycardic GI normal to inspection, nondistended, normoactive bowel sounds Skin no rashes or lesions noted ID ID: Route of nutrition/ use of supplements: [] Nutritional Intake: [] IV Site: [] Garcia Catheter: [] Assessment & Plan Assessment/Plan (1) Noninfected skin tear of left lower extremity: QUALIFIERS: Encounter type: initial encounter Qualified Code(s): S81.812A - Laceration without foreign body, left lower leg, initial encounter (2) Encephalopathy: PLAN: Hypoxia, lymphopenia, encephalopathy, neg covid pcr. Is vaccinated. UAg neg. On vanc/zosyn. Wound cx with mrsa, healing well. Will stop abx today. Will follow as needed
[2021-05-21] MEDS: Furosemide 40 MG/4 ML Vial IV (16:33)
== END 2021-05-21 21:00 | disposition hospice, inpatient (51) | DRG 193 ==
LOC: ED 16:10 → MS2 20:58
PROVIDERS: Internal Medicine; Internal Medicine Critical Care Medicine; Internal Medicine Infectious Disease; Admitting Provider Family Medicine; Emergency Provider Student in an Organized Health Care Education/Training Program; PCP Internal Medicine; Visit Provider Family Medicine
DX: J18.9 Pneumonia, unspecified organism (principal); G93.41 Metabolic encephalopathy; I50.33 Acute on chronic diastolic (congestive) heart failure; E43 Unspecified severe protein-calorie malnutrition; J96.01 Acute respiratory failure with hypoxia; I13.0 Hypertensive heart and chronic kidney disease with heart failure and stage 1 through stage 4 chronic kidney disease, or unspecified chronic kidney disease; L97.919 Non-pressure chronic ulcer of unspecified part of right lower leg with unspecified severity; E87.0 Hyperosmolality and hypernatremia; N17.9 Acute kidney failure, unspecified; Z68.1 Body mass index [BMI] 19.9 or less, adult; J98.11 Atelectasis; L03.116 Cellulitis of left lower limb; I83.018 Varicose veins of right lower extremity with ulcer other part of lower leg; S81.812A Laceration without foreign body, left lower leg, initial encounter; B95.62 Methicillin resistant Staphylococcus aureus infection as the cause of diseases classified elsewhere; S80.212A Abrasion, left knee, initial encounter; S51.812A Laceration without foreign body of left forearm, initial encounter; W19.XXXA Unspecified fall, initial encounter; Z91.81 History of falling; Y93.9 Activity, unspecified; Y92.009 Unspecified place in unspecified non-institutional (private) residence as the place of occurrence of the external cause; N18.32 Chronic kidney disease, stage 3b; I35.0 Nonrheumatic aortic (valve) stenosis; E03.9 Hypothyroidism, unspecified; M81.0 Age-related osteoporosis without current pathological fracture; I73.9 Peripheral vascular disease, unspecified; R62.7 Adult failure to thrive; G30.9 Alzheimer's disease, unspecified; F02.80 Dementia in other diseases classified elsewhere, unspecified severity, without behavioral disturbance, psychotic disturbance, mood disturbance, and anxiety; E87.8 Other disorders of electrolyte and fluid balance, not elsewhere classified; F32.9 Major depressive disorder, single episode, unspecified; F41.9 Anxiety disorder, unspecified; G47.30 Sleep apnea, unspecified; I27.20 Pulmonary hypertension, unspecified; I48.0 Paroxysmal atrial fibrillation; Z66 Do not resuscitate; M19.90 Unspecified osteoarthritis, unspecified site; E78.5 Hyperlipidemia, unspecified; I89.0 Lymphedema, not elsewhere classified; I34.1 Nonrheumatic mitral (valve) prolapse; Z87.440 Personal history of urinary (tract) infections; Z95.2 Presence of prosthetic heart valve; Z79.899 Other long term (current) drug therapy
CPT/HCPCS: 36415; 36600; 70450; 71045; 71046; 71275; 74177; 80048; 80053; 80202; 80299; 81001; 82550; 82803; 83735; 83880; 84100; 84134; 84145; 84439; 84443; 84484; 85025; 85379; 85652; 86140; 87070; 87077; 87186; 87205; 87426; 87449; 87633; 87635; 87640; 92526; 92610; 93005; 93306; 94002; 94003; 94640; 94762; 97110; 97116; 97162; 97166; 97530; 97535; 97760; 97802; 97803; 99285; J7030; J7040; J7050; Q9967; U0005; A4216; J1940; U0003